=== PATIENT | female | born 1945 | race Caucasian/White ===

== ENCOUNTER → 2021-01-27 11:32 | Outpatient (BNVA) | payer MEDICARE, MEDICAID, SELFPAY | PROVIDERS: Visit Provider Nurse Practitioner | DX: I10 Essential (primary) hypertension (principal); F41.8 Other specified anxiety disorders; E55.9 Vitamin D deficiency, unspecified; E78.2 Mixed hyperlipidemia; G45.9 Transient cerebral ischemic attack, unspecified; K21.9 Gastro-esophageal reflux disease without esophagitis; Z85.3 Personal history of malignant neoplasm of breast; M19.90 Unspecified osteoarthritis, unspecified site; N39.0 Urinary tract infection, site not specified | CPT/HCPCS: 80053; 80061; 81003; 82306; 82607; 84443; 85025; 87077; 87086; 87184 ==

== ENCOUNTER → 2021-02-22 11:16 | Outpatient (BNVA) | payer MEDICARE, MEDICAID, SELFPAY | PROVIDERS: Visit Provider Nurse Practitioner | DX: R82.90 Unspecified abnormal findings in urine (principal) | CPT/HCPCS: 81000 ==

== ENCOUNTER 2021-03-09 09:58 | Outpatient (CLI) | payer MEDICARE, MEDICAID, SELFPAY ==
--- NOTE | 2021-03-09 17:31 | ONC CON_ITS ---
Dr. Bobo New Patient Note Patient: Beryl Cui Unit #: [id number]: 1945 Dicatated By: Evelyne Bobo M.D.Date of Visit: March 09, 2021 Onc MED New Patient/Consult Referring Physician: Rex Santacruz History of Present Illness: Ms. Beryl Dodge, is a 75-year-old female with a history of pT1b, pN0(sn) M0 (multifocal 2 separate foci measuring 9.3 mm and 9 mm )in upper outer quadrant of left breast, underwent lumpectomy and sentinel lymph node biopsy on May 28, 2020, ER [place] positive HER-2/don negative, Oncotype DX score was 17, patient was offered post lumpectomy radiation therapy to the left breast which was completed in late July 2020, patient was also started on letrozole 2.5 mg p.o. daily for 5 years in July 2020., Patient is tolerating hormonal therapy well Patient also has history of follicular mixed large/small cell non-Hodgkin lymphoma diagnosed in 1997 initially she was monitored then treated with R-CVP regimen x5 cycles in 2002 and then due to disease progression, as per patient she received R-CHOP x5 cycles in 2003 followed by maintenance Rituxan, now in remission which was confirmed with follow-up scans in previous oncology clinic, Patient has recently moved to [place], close to her daughter and is here to establish her oncology care Patient denies any history of smoking or alcohol use. Tolerating letrozole and vitamin D/calcium, well, no fever or chills, no nausea or vomiting, no diarrhea or constipation, no new bony pain, no jaundice, no heart flashes, Past Medical History: Ms. Dar Hong's medical history consists of anxiety, gastroesophageal reflux disease, hypertension, osteoarthritis, and osteoporosis. Past Surgical History: Ms. Dar Hong's surgical/procedural history consists of tonsillectomy, left breat lumpectomy in 2019, appendectomy in 2000, cholecystectomy in 1998, right breast lumpectomy in 1982, and hysterectomy/bilateral salpingectomy-oophorectomy in 1979. Medications: Atorvastatin Calcium 1 Tablet (of 20 mg) Oral daily, Clopidogrel Bisulfate 1 Tablet (of 75 mg) Oral daily, Euthyrox 1 Tablet (of 25 mcg) Oral daily, Famotidine 1 Tablet (of 20 mg) Tablet, chewable Oral daily, Letrozole 1 Tablet (of 2.5 mg) Oral every am, Lexapro 1 Tablet Oral daily, Lisinopril 1 Tablet (of 20 mg) Oral daily, traMADol HCl 1 Tablet (of 50 mg) Oral every am Allergies: Morphine Sulfate Social History: Ms. Dar Hong is single. Ms. Dar Hong has never smoked. She has no history of drinking. Family History: Ms. Dar Hong's mother at age 79: stroke. Ms. Dar Hong's father at age 62: coronary artery disease. Review Of Symptoms: Review of Systems is not available for this patient. Vital Signs: Performed on March 09, 2021 10:55: 3, 28.90, 1.64 sq.m, 60 in, 99 %, 86 /min, 17 /min, 208/91 mm(hg) (HIGH), 97.3 F (LOW), and 148.0 lbs (HIGH). Performance Status: 0 - Fully active, able to carry on all predisease activities without restrictions. (ECOG) Physical Examination: ENMT - No mouth sores, no thrush, no jaundice, no cervical or axillary lymphadenopathy, Respiratory - Lungs are clear to auscultation, Cardiovascular - Regular rate and rhythm of heart, Abdomen - Soft, bowel sounds present, Extremities - No visible edema or rash. Lab/Imaging: Most recent lab results are not available for this patient. 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 low Oncotype DX score, ER/WA positive, HER-2/don negative, for which she underwent lumpectomy with sentinel lymph node biopsy followed by postlumpectomy radiation therapy completed in July 2020, now on adjuvant hormonal therapy with letrozole 2.5 mg daily for 5 years since late July 2020., Tolerating well, also taking vitamin D and calcium supplement. She also has history of follicular mixed large cell/small cell non-Hodgkin lymphoma for which she received systemic chemotherapy in the past followed by maintenance therapy with Rituxan, as per patient her follow-up scan shows complete remission., Patient denies any B symptoms or peripheral lymphadenopathy., We will continue with her adjuvant hormonal therapy with Femara and give her prescription for that and then she will return to clinic in 4 months with CBC CMP and follow-up mammogram which is due in June 2021. Signed By: Evelyne Bobo M.D. <<Signature on File>>
== END 2021-03-09 09:59 | disposition home or self-care (01) ==
LOC: ONCMED 10:05
PROVIDERS: PCP Nurse Practitioner; Visit Provider Internal Medicine Hematology & Oncology
DX: I10 Essential (primary) hypertension (principal); E55.9 Vitamin D deficiency, unspecified; K21.9 Gastro-esophageal reflux disease without esophagitis; M19.90 Unspecified osteoarthritis, unspecified site; M81.0 Age-related osteoporosis without current pathological fracture; Z92.3 Personal history of irradiation; Z79.890 Hormone replacement therapy
CPT/HCPCS: 99205

== ENCOUNTER → 2021-04-22 10:55 | Outpatient (BNVA) | payer MEDICARE, MEDICAID, SELFPAY | PROVIDERS: PCP Nurse Practitioner; Visit Provider Nurse Practitioner | DX: E55.9 Vitamin D deficiency, unspecified (principal); E03.8 Other specified hypothyroidism; E78.2 Mixed hyperlipidemia; G45.9 Transient cerebral ischemic attack, unspecified; F41.8 Other specified anxiety disorders; K21.9 Gastro-esophageal reflux disease without esophagitis; I10 Essential (primary) hypertension; M19.90 Unspecified osteoarthritis, unspecified site | CPT/HCPCS: 82306; 84443 ==

== ENCOUNTER 2021-07-07 09:22 | Outpatient (CLI) | payer MEDICARE, MEDICAID, SELFPAY ==
--- NOTE | 2021-07-07 09:30 | MM_ITS ---
WS: [id number] BILATERAL DIGITAL DIAGNOSTIC MAMMOGRAM MAMMOGRAPHY WITH CAD CLINICAL INFORMATION: MALIG NEOPLASM OVERLAPPING SITES LT BREAST COMPARISON: May 28, 2020 TECHNIQUE: Bilateral CC, MLO, and ML views. FINDINGS: Scattered fibroglandular densities bilaterally. Prior postoperative changes left lumpectomy with surg ical clips and parenchymal fibrosis. Punctate and vascular calcifications. Unremarkable right breast. No suspicious focal mass, asymmetry, calcifications, or architectural distortion. No evidence of mary gnancy. MM/[place] [id number] IMPRESSION: BI-RADS: 2-Benign FOLLOW UP: 1 Year Follow-up Recommend return to annual diagnostic mammography.
== END 2021-07-07 09:23 | disposition home or self-care (01) ==
LOC: RADSHAW 09:28
PROVIDERS: PCP Nurse Practitioner; Visit Provider Internal Medicine Hematology & Oncology
DX: C50.812 Malignant neoplasm of overlapping sites of left female breast (principal)
CPT/HCPCS: 77066

== ENCOUNTER → 2021-07-20 10:32 | Outpatient (BNVA) | payer MEDICARE, MEDICAID, SELFPAY | PROVIDERS: PCP Nurse Practitioner; Visit Provider Nurse Practitioner | DX: E78.2 Mixed hyperlipidemia (principal); E03.8 Other specified hypothyroidism; I10 Essential (primary) hypertension; E55.9 Vitamin D deficiency, unspecified; G45.9 Transient cerebral ischemic attack, unspecified; F41.8 Other specified anxiety disorders; K21.9 Gastro-esophageal reflux disease without esophagitis; Z85.3 Personal history of malignant neoplasm of breast; M19.90 Unspecified osteoarthritis, unspecified site | CPT/HCPCS: 80053; 80061; 84443; 85025 ==

== ENCOUNTER 2021-07-21 10:54 | Outpatient (CLI) | payer MEDICARE, MEDICAID, SELFPAY ==
--- NOTE | 2021-07-21 11:33 | ONC FU_ITS ---
Dr. Bobo follow up note Patient: Beryl Cui Unit #: [id number]: 1945 Dicatated By: Evelyne Bobo M.D.Date of Visit:Jul 21, 2021 Onc Med Follow-up/Prog Note History of Present Illness: Ms. Beryl Dodge, is a 75-year-old female with a history of pT1b, pN0(sn) M0 (multifocal 2 separate foci measuring 9.3 mm and 9 mm )in upper outer quadrant of left breast, underwent lumpectomy and sentinel lymph node biopsy on May 28, 2020, ER [place] positive HER-2/don negative, Oncotype DX score was 17, patient was offered post lumpectomy radiation therapy to the left breast which was completed in late July 2020, patient was also started on letrozole 2.5 mg p.o. daily for 5 years in July 2020., Patient is tolerating hormonal therapy well Patient also has history of follicular mixed large/small cell non-Hodgkin lymphoma diagnosed in 1997 initially she was monitored then treated with R-CVP regimen x5 cycles in 2002 and then due to disease progression, as per patient she received R-CHOP x5 cycles in 2003 followed by maintenance Rituxan, now in remission which was confirmed with follow-up scans in previous oncology clinic, Patient has recently moved to [place], close to her daughter and is here to establish her oncology care Patient denies any history of smoking or alcohol use. Tolerating letrozole and vitamin D/calcium, Follow-up mammogram done on July 07, 2021 shows benign, BI-RADS 2 Came for follow-up, denies any specific complaints except chronic arthritis pain in her knee and shoulder but under control as per patient her PMD has started her on Fosamax for osteoporosis while she is taking vitamin D and calcium supplement and she is also tolerating Femara well, denies any hot flashes. Denies any night sweats denies any recurrent fever denies any weight loss denies any peripheral lymphadenopathy or abdominal fullness Medications: Atorvastatin Calcium 1 Tablet (of 20 mg) Oral daily, Clopidogrel Bisulfate 1 Tablet (of 75 mg) Oral daily, Euthyrox 1 Tablet (of 25 mcg) Oral daily, Famotidine 1 Tablet (of 20 mg) Tablet, chewable Oral daily, Letrozole 1 Tablet (of 2.5 mg) Oral every am, Lexapro 1 Tablet Oral daily, Lisinopril 1 Tablet (of 20 mg) Oral daily, traMADol HCl 1 Tablet (of 50 mg) Oral every am Allergies: Morphine Sulfate Review of Systems: Review of Systems is not available for this patient. Vital Signs: Vitals are not available for this patient. Performance Status: 0 - Fully active, able to carry on all predisease activities without restrictions. (ECOG) Physical Examination: Respiratory - Lungs are clear to auscultation, Cardiovascular - Regular rate and rhythm of heart, Gastrointestinal - Soft, bowel sounds present, Extremities - No visible edema. Lab/Imaging: Most recent lab results are not available for this patient. 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, status post chemotherapy with R-CVP regimen x5 in 2002 and status post chemotherapy with R-CHOP x5 in 2003 followed by maintenance therapy with Rituxan, follow-up scans confirmed complete remission Hypertension Osteoporosis, her DEXA scan done on August 04, 2020 on vitamin D and calcium Plan: Discussed with patient regarding her labs done on July 20, 2021 which shows white blood count 7.7 hemoglobin 12.3 hematocrit 37.1 platelets 311,000 CMP within normal limits and her follow-up mammogram finding which was benign Clinically, patient doing well with no signs symptom suggestive of recurrence of disease, tolerating Femara/vitamin D/calcium and Fosamax for osteoporosis which she is tolerating well, her follow-up mammogram was benign As far as history of lymphoma is concerned, patient has no B symptoms or peripheral lymphadenopathy or organomegaly, will continue to monitor she will return to clinic in 6 months with CBC CMP while continue daily Femara/vitamin D/calcium and Fosamax Signed By: Evelyne Bobo M.D. <<Signature on File>>
== END 2021-07-21 10:55 | disposition home or self-care (01) ==
LOC: ONCMED 10:57
PROVIDERS: PCP Nurse Practitioner; Visit Provider Internal Medicine Hematology & Oncology
DX: C50.412 Malignant neoplasm of upper-outer quadrant of left female breast (principal); Z17.0 Estrogen receptor positive status [ER+]; I10 Essential (primary) hypertension; Z85.72 Personal history of non-Hodgkin lymphomas; Z79.811 Long term (current) use of aromatase inhibitors; Z79.899 Other long term (current) drug therapy; Z90.12 Acquired absence of left breast and nipple
CPT/HCPCS: 99214

== ENCOUNTER → 2021-12-28 11:00 | Outpatient (BNVA) | payer MEDICARE, MEDICAID, SELFPAY | PROVIDERS: PCP Nurse Practitioner; Visit Provider Nurse Practitioner | DX: M79.10 Myalgia, unspecified site (principal) | CPT/HCPCS: 73080 ==

== ENCOUNTER → 2022-01-14 09:57 | Outpatient (BNVA) | payer MEDICARE, MEDICAID, SELFPAY | PROVIDERS: PCP Nurse Practitioner; Visit Provider Internal Medicine Hematology & Oncology | DX: Z85.3 Personal history of malignant neoplasm of breast (principal); I10 Essential (primary) hypertension | CPT/HCPCS: 80053; 80061; 85025 ==

== ENCOUNTER 2022-01-19 12:23 | Outpatient (CLI) | payer MEDICARE, MEDICAID, SELFPAY ==
--- NOTE | 2022-01-24 08:04 | ONC FU_ITS ---
Dr. Bobo follow up note Patient: Beryl Cui Unit #: [id number]: 1945 Dicatated By: Evelyne Bobo M.D.Date of Visit:Jan 19, 2022 Onc Med Follow-up/Prog Note History of Present Illness: Ms. Beryl Dodeg, is a 76-year-old female with a history of pT1b, pN0(sn) M0 (multifocal 2 separate foci measuring 9.3 mm and 9 mm )in upper outer quadrant of left breast, underwent lumpectomy and sentinel lymph node biopsy on May 28, 2020, ER [place] positive HER-2/don negative, Oncotype DX score was 17, patient was offered post lumpectomy radiation therapy to the left breast which was completed in late July 2020, patient was also started on letrozole 2.5 mg p.o. daily for 5 years in July 2020., Patient is tolerating hormonal therapy well Patient also has history of follicular mixed large/small cell non-Hodgkin lymphoma diagnosed in 1997 initially she was monitored then treated with R-CVP regimen x5 cycles in 2002 and then due to disease progression, as per patient she received R-CHOP x5 cycles in 2003 followed by maintenance Rituxan, now in remission which was confirmed with follow-up scans in previous oncology clinic, Patient has recently moved to [place], close to her daughter and is here to establish her oncology care Patient denies any history of smoking or alcohol use. Tolerating letrozole and vitamin D/calcium, Follow-up mammogram done on July 07, 2021 shows benign, BI-RADS 2 Came for follow-up, denies any specific complaints, except noted some skin thickening along with scar in her right lateral breast, as per patient in 1982 she underwent cyst removal from her right breast and now scar is showing some tissue thickening similar to the scar in her epigastric area which was due to gallbladder surgery done in 2003. Denies any bleeding from the scar tissues, denies any trauma. Denies any right breast nipple discharge. No fever chills, no nausea or vomiting, no diarrhea or constipation, no hot flashes, no jaundice Medications: amLODIPine Besylate 1 Tablet (of 2.5 mg) Oral at bedtime, Atorvastatin Calcium 1 Tablet (of 20 mg) Oral daily, Clopidogrel Bisulfate 1 Tablet (of 75 mg) Oral daily, Euthyrox 1 Tablet (of 25 mcg) Oral daily, Famotidine 1 Tablet (of 20 mg) Tablet, chewable Oral daily, Letrozole 1 Tablet (of 2.5 mg) Oral every am, Lexapro 1 Tablet Oral daily, Lisinopril 1 Tablet (of 20 mg) Oral daily, traMADol HCl 1 Tablet (of 50 mg) Oral every am Allergies: Morphine Sulfate Review of Systems: Review of Systems is not available for this patient. Vital Signs: Performed on Jan 19, 2022 15:49 Height - 60.00 in Weight - 158.6 lbs (HIGH) BSA - 1.69 sq.m BMI - 30.97 (HIGH) Temperature - 98.6 F Pulse - 78 /min Respiration - 16 /min BP - 151/86 mm(hg) (HIGH) O2 Sat - 99 % Pain - 4 Fatigue - 5 Performance Status: 0 - Fully active, able to carry on all predisease activities without restrictions. (ECOG) Physical Examination: Respiratory - Lungs are clear to auscultation, Cardiovascular - Regular rate and rhythm of heart, Gastrointestinal - Soft, bowel sounds present, Extremities - Trace edema bilaterally. Lab/Imaging: Test performed on Jan 14, 2022 13:27 Cholesterol, Total 319 mg/dL Glucose 100 mg/dL BUN 13 mg/dL HDL Cholesterol 56 mg/dL Creatinine 1.0 mg/dL LDL Cholesterol 216 mg/dL Cr Clearance (Est) 52.16 mL/min VLDL Cholesterol 47 mg/dL Triglycerides 236 mg/dL Sodium 139 mmol/L Potassium 3.1 mmol/L Chloride 99 mmol/L CO2 27 mmol/L Calcium 9.7 mg/dL Protein, Total 6.8 g/dL Albumin 4.2 g/dL Globulin 2.6 g/dL Bilirubin, Total 0.3 mg/dL Alkaline Phosphatase 139 International Units/L AST (SGOT) 17 International Units/L ALT (SGPT) 18 International Units/L WBC 8.3 10^9/L RBC 4.02 10^12/L HGB 12.4 g/dL HCT 38.2 % MCV 95.0 fl MCH 30.8 pg MCHC 32.5 g/dL RDW 13.0 % Platelet Count 350 10^9/L MPV 11.1 fL Neutrophils (Gran) 5.96 10^9/L Lymphocytes 1.328 10^9/L Monocytes 0.7138 10^9/L Eosinophils 0.2075 10^9/L Basophils 0.0581 10^9/L Impression: Left breast cancer status post lumpectomy done on May 28, 2020, final pathology report confirmed pT1b( multifocal, 2 separate foci measuring 9.3 mm and 9 mm, moderately differentiated ductal carcinoma,) pN0(Sn), M0, ER/AK positive HER-2/don negative, Oncotype DX score 17 Status post postlumpectomy radiation therapy to the left breast completed in July 2020 Started on Femara 2.5 mg daily for 5 years in late July 2020 History of cyst removal from right lateral breast in 1982 in [facility] History of 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, status post chemotherapy with R-CVP regimen x5 in 2002 and status post chemotherapy with R-CHOP x5 in 2003 followed by maintenance therapy with Rituxan, follow-up scans confirmed complete remission Hypertension Osteoporosis, her DEXA scan done on August 04, 2020 on vitamin D and calcium Plan: 8Discussed with patient regarding her labs white blood count 0.3 hemoglobin 12.4 hematocrit 38.2 platelets 350,000 CMP within normal limit except potassium 3.1 and her cholesterol level was 319 LDL 216 Clinically, patient doing well with no new signs symptom suggestive of disease progression or recurrence, tolerating daily Femara along with vitamin D and calcium well, had mammogram done in June 2021 showed BI-RADS 2, benign and next mammogram is due in June 2022. Her lab work-up is within normal range except mild hypokalemia, patient said she take off and on Lasix for lower extremity edema prescribed by PMD. Patient has potassium supplement at home, she was advised to take 1 tablet daily for 3 days then as needed and suggested to follow-up with PMD regarding her potassium supplement while she is on diuretics. As far as right lateral breast and epigastric area skin abnormality around scar tissue is concerned clinically it appears she may have keloid, we will refer her to dermatology for evaluation. Patient return to clinic in 6 months with CBC CMP and follow-up mammogram in the meantime she will continue with daily Femara/vitamin D and calcium supplements Signed By: Evelyne Bobo M.D. <<Signature on File>>
== END 2022-01-19 12:24 | disposition home or self-care (01) ==
PROVIDERS: PCP Nurse Practitioner; Visit Provider Internal Medicine Hematology & Oncology
DX: C50.812 Malignant neoplasm of overlapping sites of left female breast (principal); Z17.0 Estrogen receptor positive status [ER+]; I10 Essential (primary) hypertension; M81.0 Age-related osteoporosis without current pathological fracture; E55.9 Vitamin D deficiency, unspecified; E87.6 Hypokalemia; R60.0 Localized edema; Z79.818 Long term (current) use of other agents affecting estrogen receptors and estrogen levels; Z79.899 Other long term (current) drug therapy; Z85.72 Personal history of non-Hodgkin lymphomas; Z92.21 Personal history of antineoplastic chemotherapy; Z92.3 Personal history of irradiation
CPT/HCPCS: 99214

== ENCOUNTER → 2022-02-28 15:11 | Outpatient (BNVA) | payer MEDICARE, MEDICAID, SELFPAY | PROVIDERS: PCP Nurse Practitioner; Visit Provider Nurse Practitioner | DX: Z20.822 Contact with and (suspected) exposure to COVID-19 (principal) | CPT/HCPCS: 87635 ==

== ENCOUNTER → 2022-03-24 11:03 | Outpatient (BNVA) | payer MEDICARE, MEDICAID, SELFPAY | PROVIDERS: PCP Nurse Practitioner; Visit Provider Nurse Practitioner | DX: E55.9 Vitamin D deficiency, unspecified (principal); G45.9 Transient cerebral ischemic attack, unspecified; F41.8 Other specified anxiety disorders; K21.9 Gastro-esophageal reflux disease without esophagitis; I10 Essential (primary) hypertension; E03.8 Other specified hypothyroidism; M19.90 Unspecified osteoarthritis, unspecified site; E78.2 Mixed hyperlipidemia; M79.10 Myalgia, unspecified site | CPT/HCPCS: 80053 ==

== ENCOUNTER → 2022-06-23 11:35 | Outpatient (BNVA) | payer OTHER, MEDICAID, SELFPAY | PROVIDERS: PCP Nurse Practitioner; Visit Provider Nurse Practitioner | DX: E55.9 Vitamin D deficiency, unspecified (principal); G45.9 Transient cerebral ischemic attack, unspecified; F41.8 Other specified anxiety disorders; K21.9 Gastro-esophageal reflux disease without esophagitis; I10 Essential (primary) hypertension; E03.8 Other specified hypothyroidism; M19.90 Unspecified osteoarthritis, unspecified site; E78.2 Mixed hyperlipidemia; M79.10 Myalgia, unspecified site; Z12.39 Encounter for other screening for malignant neoplasm of breast; M79.642 Pain in left hand | CPT/HCPCS: 73110; 73130 ==

== ENCOUNTER → 2022-07-04 14:46 | Outpatient (BNVA) | payer OTHER, MEDICAID, SELFPAY | PROVIDERS: PCP Nurse Practitioner; Visit Provider Nurse Practitioner | DX: I10 Essential (primary) hypertension (principal) | CPT/HCPCS: 81000 ==

== ENCOUNTER → 2022-07-18 09:55 | Outpatient (BNVA) | payer OTHER, MEDICAID, SELFPAY | PROVIDERS: PCP Nurse Practitioner; Visit Provider Internal Medicine Hematology & Oncology | DX: Z85.3 Personal history of malignant neoplasm of breast (principal); I10 Essential (primary) hypertension | CPT/HCPCS: 80053; 85025 ==

== ENCOUNTER 2022-07-20 11:12 | Outpatient (CLI) | payer MEDICARE, MEDICAID, SELFPAY ==
--- NOTE | 2022-07-20 11:17 | MM_ITS ---
WS: [id number] VIEWS: MLO, CC, and ML views both breasts. 3D digital tomosynthesis is also included in this exam. Comparison made with prior exam of 07/07/2021. Findings: Surgical clips and postoperative architectural distortion seen in the upper outer quadrant of the lef t breast. This is stable since previous study. No new suspicious finding in the right breast. The parag asts are fatty. MM/[place] [id number] Impression: BI-RADS: 2-Benign FOLLOW-UP: 1 Year Follow-up This mammogram was also analyzed by the Computer Aided Detection System R2 Imag e Enrollment Processor.
== END 2022-07-20 11:13 | disposition home or self-care (01) ==
LOC: RAD 11:12
PROVIDERS: PCP Nurse Practitioner; Visit Provider Internal Medicine Hematology & Oncology
DX: Z85.3 Personal history of malignant neoplasm of breast (principal)
CPT/HCPCS: 77062

== ENCOUNTER 2022-07-22 08:22 | Oncology outpatient (recurring) (ONCR) | payer MEDICARE, MEDICAID, SELFPAY | END 2022-07-22 23:59 | disposition home or self-care (01) | PROVIDERS: PCP Nurse Practitioner; Visit Provider Internal Medicine Hematology & Oncology | DX: C50.812 Malignant neoplasm of overlapping sites of left female breast (principal); Z17.0 Estrogen receptor positive status [ER+]; Z79.818 Long term (current) use of other agents affecting estrogen receptors and estrogen levels; Z92.3 Personal history of irradiation; Z85.72 Personal history of non-Hodgkin lymphomas; Z92.21 Personal history of antineoplastic chemotherapy; Z92.25 Personal history of immunosuppression therapy; E87.6 Hypokalemia; Z79.899 Other long term (current) drug therapy | CPT/HCPCS: 99214 ==

== ENCOUNTER → 2022-08-01 13:57 | Outpatient (BNVA) | payer MEDICARE, MEDICAID, SELFPAY | PROVIDERS: PCP Nurse Practitioner; Visit Provider Nurse Practitioner | DX: E78.2 Mixed hyperlipidemia (principal); I10 Essential (primary) hypertension; Z23 Encounter for immunization | CPT/HCPCS: 80048 ==

== ENCOUNTER → 2022-08-25 09:02 | Outpatient (BNVA) | payer MEDICARE, MEDICAID, SELFPAY | PROVIDERS: PCP Nurse Practitioner; Visit Provider Nurse Practitioner | DX: I10 Essential (primary) hypertension (principal) | CPT/HCPCS: 80048 ==

== ENCOUNTER 2022-11-09 16:57 | Emergency (ER) | payer MEDICARE, MEDICAID, SELFPAY ==
[2022-11-09 17:09] VITALS: BP 173/102; PULSE 62; RESP 17; TEMP 36.8; O2SAT 97; BMI 31.2
--- NOTE | 2022-11-09 17:26 | CTR_ITS ---
PROCEDURE INFORMATION: Exam: CT Cervical Spine Without Contrast Exam date and time: 11/09/2022 5:42 PM Age: 77 years old Clinical indication: Injury or trauma; Fall; Blunt trauma; Additional info: Midline pain after fall TECHNIQUE: Imaging protocol: Computed tomography of the cervical spine without contrast. Radiation optimization: All CT scans at this facility use at least one of these dose optimization techniques: automated exposure control; mA and/or kV adjustment per patient size (includes targeted exams where dose is matched to clinical indication); or iterative reconstruction. COMPARISON: CR (CHEST, ) 11/09/2022 5:32 PM RADIATION DOSE METRICS: Total DLP (mGy-cm): 216.5 FINDINGS: Bones/joints: Mild spondylotic change along with mild to moderate degenerative disc disease C5-6 level. No fracture or acute osseous abnormality. Alignment appears unremarkable. No significant cervical spinal stenosis. Lungs: Mild apical scarring. Soft tissues: Unremarkable. Mild carotid vascular calcification. CT/CT cervical spin wo con* [id number] IMPRESSION: Mild spondylotic change with [id number] degenerative disc disease C5-6. No fracture or acute findings.
--- NOTE | 2022-11-09 17:26 | XRR_ITS ---
PROCEDURE INFORMATION: Exam: XR Right Shoulder Exam date and time: 11/09/2022 5:32 PM Age: 77 years old Clinical indication: Pain and injury or trauma; Fall; Blunt trauma (contusions or hematomas); Shoulder; Right TECHNIQUE: Imaging protocol: Radiologic exam of the Right shoulder. Views: 2 or more views. COMPARISON: No relevant prior studies available. FINDINGS: Bones/joints: Mild degenerative change. No fracture or dislocation. Soft tissues: N unremarkable al. XR/XR shoulder RT min 2V* [id number] IMPRESSION: No acute findings.
--- NOTE | 2022-11-09 17:26 | CTR_ITS ---
PROCEDURE INFORMATION: Exam: CT Head Without Contrast Exam date and time: 11/09/2022 5:42 PM Age: 77 years old Clinical indication: Injury or trauma; Fall; Blunt trauma (contusions or hematomas); Additional info: Fall on doac TECHNIQUE: Imaging protocol: Computed tomography of the head without contrast. Radiation optimization: All CT scans at this facility use at least one of these dose optimization techniques: automated exposure control; mA and/or kV adjustment per patient size (includes targeted exams where dose is matched to clinical indication); or iterative reconstruction. COMPARISON: No relevant prior studies available. 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 Atrophic or involutional change for age. No hemorrhage or mass effect. Cerebral ventricles: No ventriculomegaly. Paranasal sinuses: Chronic appearing mucosal sinus disease with component of chronic calcification within the left sphenoid sinus. Mastoid air cells: Visualized mastoid air cells are well aerated. Bones/joints: Unremarkable. No acute fracture. Soft tissues: Soft tissue scalp swelling or hematoma in the right frontal scalp. CT/CT head wo con* [id number] IMPRESSION: 1. Atrophic or involutional change for age. 2. 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 3. Soft tissue scalp swelling or hematoma in the right frontal scalp. 4. Chronic appearing mucosal sinus disease with component of chronic appearing calcification within the left sphenoid sinus.
--- NOTE | 2022-11-09 17:26 | XRR_ITS ---
PROCEDURE INFORMATION: Exam: XR Left Knee Exam date and time: 11/09/2022 5:32 PM Age: 77 years old Clinical indication: Pain and injury or trauma; Fall; Blunt trauma; Knee; Left TECHNIQUE: Imaging protocol: Radiologic exam of the Left knee. Views: 3 views. COMPARISON: No relevant prior studies available. FINDINGS: Bones/joints: Mild degenerative change. No fracture or acute osseous abnormality. Soft tissues: Unremarkable. No significant suprapatellar fullness or effusion.' XR/XR knee LT 3V* [id number] IMPRESSION: No acute findings.
--- NOTE | 2022-11-09 17:27 | ED_ITS ---
HPI - Fall General: Chief Complaint: Fall Stated Complaint: FALL HIT HEAD Time Seen by Provider: 11/09/22 17:08 Source: patient and family Mode of arrival: EMS Limitations: no limitations History of Present Illness: This patient presents to the emergency department via EMS. She was walking in her home and tripped over a piece of exercise equipment and fell forward striking her head and her right shoulder and her left knee. She states there was no syncope prior to the fall. She states she did not suffer a loss of consciousness and has had no headache vomiting etc. after the incident. States she has pain in her right shoulder and her left knee. She also has swelling in her right forehead. She currently takes Plavix apparently for TIA prevention. No history of arrhythmias etc. No weakness numbness etc. no other changes in her usual state of health at this time. complaint: fall Fall from: standing Fall witnessed: no Location of injury: head Location of injury - extremities: Left: knee and Right: shoulder Associated symptoms-after fall: Reports neck pain; Denies chest pain, headache(s) or vertigo Review of Systems Const: Denies: fever(s) or chills Eyes: Denies: change in vision Card: Denies: chest pain, palpitations, syncope or pre-syncope GI: Denies: nausea or vomiting Musc: Reports: neck pain, back pain and extremity pain Skin/Breast: Denies: rash Neuro: Denies: headache(s), numbness in extremities, weakness in extremities, dizziness, vertigo or seizure-like activity Robert/Lymph: Reports: easy bruising PFS ED PFSH: Medical History Age related osteoporosis Breast cancer Environmental and seasonal allergies Essential (primary) hypertension Gastric reflux History of left breast cancer Mixed hyperlipidemia Non-Hodgkin lymphoma in remission 1997 with chemo and radiation Osteoarthritis Situational anxiety TIA (transient ischemic attack) Surgical History History of appendectomy History of cholecystectomy History of hysterectomy with BSO History of lumpectomy of left breast 2019 [place] History of right breast biopsy Fibrocystic breast 1984 History of tonsillectomy Family History Other Cancer Dementia Hypertension Stroke Denies family history of Diabetes Clotting disorder Anesthesia complication Bleeding disorder Social History Smoking and tobacco status: never smoked Second hand smoke exposure: No Smoking risk assessment/counseling performed?: No Alcohol intake: never Desire information about alcohol rehabilitation?: No Counseling given: No Desire information about substance/drug rehabilitation?: No Counseling given: No Adopted: No Caregiver/support person: No Lives independently: Yes Household members: none Housing: Apartment Marital status: / Number of children: 2 service: No Current occupational status: retired Pets and animals: Yes Pets & animals: cat(s) History of recent travel: Yes Current gender identity: Female Physical Exam Narrative: EXAM NARRATIVE: The patient's makes good eye contact. She is alert. She answers questions appropriately. Const: COMMON NORMALS: no acute distress, average body habitus and patient oriented x3 GENERAL APPEARANCE: cooperative and comfortable HENMT: COMMON NORMALS: Normal nasal mucous membranes and turbinates present, moist oral mucous membranes and oropharynx normal HEAD & SCALP: contusion (Right forehead) HEAD IMAGES: 1. Contusion no palpable skull fracture or step-off FACE & SINUS: normal facial exam and face symmetric NOSE: Normal nasal mucous membranes and turbinates present Eye: COMMON NORMALS: Equal, round and reactive pupils present, EOMs intact bilaterally and conjunctivae normal CONJUNCTIVA: Yes conjunctivae normal PUPIL: Yes Equal, round and reactive pupils present Neck/C-Spine: CERVICAL SPINE: Yes cervical ROM normal, No Cervical spine tenderness, No step off deformity, No Paracervical muscle tenderness, No Paracervical spasm and No Trapezius muscle tenderness Chest: COMMONS NORMALS: normal inspection of the chest and normal palpation of entire chest wall Resp: COMMON NORMALS: normal respiratory effort and clear to auscultation bilaterally EFFORT & INSPECTION: Yes able to speak in complete sentences AUSCULTATION: clear to auscultation bilaterally Cardio: COMMON NORMALS: regular rate, regular rhythm, No murmurs present (Cardio) and Peripheral pulses 2+ throughout RATE: regular rate RHYTHM: regular rhythm PERIPHERAL PULSES: Peripheral pulses 2+ throughout GI: COMMON NORMALS: Normal to inspection, nondistended, normoactive bowel sounds present : COMMON NORMALS: Yes no CVA tenderness BLADDER/KIDNEY EXAM: Yes no CVA tenderness Back/Pelvis: COMMON NORMALS: no CVA tenderness, thoracic and lumbar spine normal to inspection, no thoracic nor lumbar tenderness, thoraco-lumbar ROM normal and straight leg raise negative bilaterally PELVIS: Yes no pain with anterior-posterior compression and Yes no pain with lateral compression SACROILIAC JOINTS: Yes SI joints normal Extremity: COMMON NORMALS: capillary refill normal, no calf tenderness and no pedal edema OTHER: Extremity examination is remarkable for tenderness in the anterior portion of the right shoulder. No ecchymosis. She has some discomfort with external rotation and extension. No deformity of the upper extremity. She has good range of motion at the elbow and wrist joint. No tenderness in the clavicle no deformity. Left knee is remarkable for a approximately 2 cm abrasion over the anterior portion of the knee. Patellar tendon function is intact. She is able to fully extend lower leg without difficulty. He has no palpable effusion. Patella is nonballotable. There is no laxity or varus or valgus stress. She has some mild tenderness in the anterior portion of the knee. The distal left lower extremity is unremarkable for any deformity. She has no bony tenderness in the the distal left leg. EXTREMITY IMAGE (FRONT): 1. tender 2. abrasion, tender Neuro: LEONEL COMA SCALE: document GCS findings [place] coma scale eye opening: Spontaneous [place] coma scale verbal response: Orientated Leonel coma scale motor response: Obey commands [place] coma scale total score: 15 COMMON NORMALS: patient oriented x3, moves all extremities and no focal motor deficits Psych: COMMON NORMALS: mental status grossly normal Skin: COMMON NORMALS: no rashes or lesions noted and turgor normal GENERAL SKIN EXAM: no rashes or lesions noted and turgor normal TRAUMA: abrasion (left knee) Course Reevaluation(s): Reevaluation #1: Patient was reevaluated. She remains alert without any new or focal findings on repeat examination. I reviewed current findings, expected course and recommendations. Both patient and family voiced understanding of our discussion. Stable at this time for discharge with family for close monitoring and return precautions. Time: 19:01 Vital Signs: Vital signs: Vital Signs Temperature 98.3 F 11/09/22 17:09 Pulse Rate 62 11/09/22 17:09 Respiratory Rate 17 11/09/22 17:09 Blood Pressure 173/102 11/09/22 17:09 Pulse Oximetry 97 11/09/22 17:09 Oxygen Delivery Me thod 11/09/22 17:09 MDM - Fall Medical Decision Making This patient was transported to the emergency department after sustaining a ground-level trip and fall in her home. She does suffer contusion to the fron luis bone without any evidence of loss of consciousness. She also had contusion to the right anterior shoulder as well as the left knee. Imaging was obtained of the head, cervical spine, right shoulder, left knee. They were all reassuring and that there was no evidence of intracranial hemorrhage, skull fracture, cervical spine injury, shoulder or knee injury. Her clinical exam is also reassuring and that she had no focal findings and no evidence of joint disruption, etc. She has no evidence of acute intracranial hemorrhage due to being on a DOAC. We discussed risks and benefits of continued observation versus home observation. Current literature favors that routine rescanning or admission is not strongly favored at this point given the low risk of delayed bleeding. This information was shared with both the patient and the family. I do feel that mitigation against any risk of delayed bleeding would be further improved by holding her Plavix for the next 48 hours in addition to her low-dose aspirin. This was acknowledged by the family. We discussed return precautions in detail. We also discussed discussed expected course of her contusion to her shoulder and knee. Stable at this time for discharge with family for observation. Lab Data I reviewed the patient's lab results. Radiology Impressions Cervical Spine CT 11/09/22 17:26 IMPRESSION: Mild spondylotic change with [id number] degenerative disc disease C5-6. No fracture or acute findings. Head CT 11/09/22 17:26 IMPRESSION: 1. Atrophic or involutional change for age. 2. 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 3. Soft tissue scalp swelling or hematoma in the right frontal scalp. 4. Chronic appearing mucosal sinus disease with component of chronic appearing calcification within the left sphenoid sinus. Knee X-Ray 11/09/22 17:26 IMPRESSION: No acute findings. Shoulder X-Ray 11/09/22 17:26 IMPRESSION: No acute findings. Discharge Plan Discharge Patient Disposition: Home Clinical Impression: Fall from ground level, Contusion of forehead, Contusion of right shoulder, Abrasion of knee, left Condition: Stable Prescriptions: Held clopidogrel 75 mg tablet 75 mg PO DAILY Qty: 30 2RF Hold Instructions: Resume on 11/12/22. Do not take Plavix morning or Monday morning and may resume Monday morning. No Action omega-3 fatty acids 100 mg tablet,chewable PO multivitamin [Daily Multi-Vitamin] Tablet 1 tab PO DAILY furosemide [Lasix] 20 mg tablet 20 mg PO QAM Qty: 30 2RF Hold Instructions: Doctor's Order famotidine 20 mg tablet 20 mg PO .HS PRN (Reason: acid reflux) Qty: 30 2RF escitalopram oxalate [Lexapro] 10 mg tablet 10 mg PO DAILY Qty: 30 2RF amlodipine [Norvasc] 2.5 mg tablet 2.5 mg PO .at bedtime for BP Qty: 30 2RF cholecalciferol (vitamin D3) 125 mcg (5,000 unit) capsule 125 mcg PO DAILY Qty: 30 2RF levothyroxine 25 mcg tablet 25 mcg PO DAILY Qty: 30 2RF lisinopril 40 mg tablet 40 mg PO DAILY Qty: 30 2RF rosuvastatin [Crestor] 40 mg tablet 40 mg PO DAILY Qty: 30 2RF tramadol 50 mg tablet 50 mg PO BID PRN (Reason: pain) Qty: 60 2RF letrozole 2.5 mg tablet See Rx Instructions .ROUTE .COMPLEX Qty: 90 3RF Dose Instruction: TAKE ONE TABLET BY MOUTH DAILY Rx Instructions: TAKE ONE TABLET BY MOUTH DAILY Discharge Orders: Discharge ED (Routine); Ordered 11/09/22 Ordered By: Billy Koo Referrals: Christel Gay, [facility] [Primary Care Provider] - Discharge Diet: Usual diet Discharge Activity: Increase activity as tolerated Patient Instructions: Opioid Safety, Pain Management Activity Restrictions/Additional Instructions: As we discussed while you are in the emergency department your images of your head and neck shoulder and knee were read unremarkable for any serious injury. We do recommend that you do not take your Plavix until Monday morning. Apply ice pack to your forehead as well as her shoulder and knee to help with any discomfort and pain. Should you have or develop headache, weakness, nausea vomiting or other concerns return to the emergency department immediately. Otherwise you may resume your medications on Monday as we discussed. Coding Level of Care Code ED Health Equipment Servicer for Chloé Fwtyrone Exam Detailed
[2022-11-09] MEDS: acetaminophen 325 mg Tablet 650 MG PO (17:57)
[2022-11-09 19:24] VITALS: BP 148/94; PULSE 74; RESP 16; O2SAT 97
== END 2022-11-09 19:25 | disposition home or self-care (01) ==
PROVIDERS: Emergency Provider Emergency Medicine; PCP Nurse Practitioner
DX: S00.83XA Contusion of other part of head, initial encounter (principal); S40.011A Contusion of right shoulder, initial encounter; S80.212A Abrasion, left knee, initial encounter; Z79.02 Long term (current) use of antithrombotics/antiplatelets; Z85.3 Personal history of malignant neoplasm of breast; I10 Essential (primary) hypertension; E78.2 Mixed hyperlipidemia; Z85.72 Personal history of non-Hodgkin lymphomas; Z86.73 Personal history of transient ischemic attack (TIA), and cerebral infarction without residual deficits; W18.09XA Striking against other object with subsequent fall, initial encounter
CPT/HCPCS: 70450; 72125; 73030; 73562; 99285

== ENCOUNTER → 2022-12-05 08:28 | Outpatient (BNVA) | payer MEDICARE, MEDICAID, SELFPAY | PROVIDERS: PCP Nurse Practitioner; Visit Provider Nurse Practitioner | DX: G45.9 Transient cerebral ischemic attack, unspecified (principal); I10 Essential (primary) hypertension; E03.8 Other specified hypothyroidism; E78.2 Mixed hyperlipidemia; E55.9 Vitamin D deficiency, unspecified | CPT/HCPCS: 80053; 80061; 82306; 84443; 85025 ==

== ENCOUNTER → 2023-01-30 10:05 | Outpatient (BNVA) | payer MEDICARE, MEDICAID, SELFPAY | PROVIDERS: PCP Nurse Practitioner; Referring Provider Internal Medicine Hematology & Oncology; Visit Provider Internal Medicine Hematology & Oncology | DX: E03.8 Other specified hypothyroidism (principal) | CPT/HCPCS: 80053; 85025 ==

== ENCOUNTER 2023-02-03 08:20 | Oncology outpatient (recurring) (ONCR) | payer MEDICARE, MEDICAID, SELFPAY | END 2023-02-19 23:59 | disposition home or self-care (01) | PROVIDERS: PCP Nurse Practitioner; Visit Provider Internal Medicine Hematology & Oncology | DX: C50.812 Malignant neoplasm of overlapping sites of left female breast (principal); Z17.0 Estrogen receptor positive status [ER+]; Z85.72 Personal history of non-Hodgkin lymphomas; Z79.818 Long term (current) use of other agents affecting estrogen receptors and estrogen levels; Z79.899 Other long term (current) drug therapy; Z92.21 Personal history of antineoplastic chemotherapy; Z92.3 Personal history of irradiation | CPT/HCPCS: 99214 ==

== ENCOUNTER → 2023-02-28 10:45 | Outpatient (BNVA) | payer MEDICARE, MEDICAID, SELFPAY | PROVIDERS: PCP Nurse Practitioner; Visit Provider Nurse Practitioner | DX: I10 Essential (primary) hypertension (principal); E55.9 Vitamin D deficiency, unspecified; G45.9 Transient cerebral ischemic attack, unspecified; F41.8 Other specified anxiety disorders; E78.2 Mixed hyperlipidemia; K21.9 Gastro-esophageal reflux disease without esophagitis; M19.90 Unspecified osteoarthritis, unspecified site; E03.8 Other specified hypothyroidism | CPT/HCPCS: 84443 ==

== ENCOUNTER 2023-04-05 12:46 | Outpatient (CLI) | payer MEDICARE, MEDICAID, SELFPAY ==
--- NOTE | 2023-04-05 13:00 | XR_ITS ---
WS: [id number] SCREENING DEXA SCAN [email or web address] CLINICAL INFORMATION: Z78.0 - Asymptomatic menopausal state COMPARISON: None. FINDINGS: The L1-L4 bone mineral density measures 0.899 g/cm2. This corresponds to a T score score of -2.3 and Z score of -0.8. Left femoral neck bone mineral density measures 0.635 g/cm2. This corresponds to a T score of -3.0 an d Z score of -1.2. Right femoral neck bone mineral density measures 0.685 g/cm2. This corresponds to a T score -2.6of an d Z score of -0.8. Mean femoral neck bone mineral density measures 0.660 g/cm2. This corresponds to a T score of -2.8 an d Z score of -1.0. XR/XR DEXA axial skeleton* [id number] IMPRESSION: Osteopenia lumbar spine approaching osteoporosis. Osteoporosis femoral necks. Patient's FRAX calculated 10 year probability for major osteoporotic fracture i s 23.5 % and osteoporotic hip fracture is 9.6%.
== END 2023-04-05 12:47 | disposition home or self-care (01) ==
LOC: RAD 13:00
PROVIDERS: PCP Nurse Practitioner; Visit Provider Nurse Practitioner
DX: Z13.820 Encounter for screening for osteoporosis (principal); Z78.0 Asymptomatic menopausal state; M85.88 Other specified disorders of bone density and structure, other site; M81.0 Age-related osteoporosis without current pathological fracture
CPT/HCPCS: 77080

== ENCOUNTER → 2023-05-22 08:11 | Outpatient (BNVA) | payer MEDICARE, MEDICAID, SELFPAY | PROVIDERS: PCP Nurse Practitioner; Visit Provider Nurse Practitioner | DX: E03.8 Other specified hypothyroidism (principal); E55.9 Vitamin D deficiency, unspecified | CPT/HCPCS: 80053; 80061; 82306; 84443 ==

== ENCOUNTER 2023-08-01 11:53 | Outpatient (CLI) | payer MEDICARE, MEDICAID, SELFPAY ==
--- NOTE | 2023-08-01 12:01 | XRR_ITS ---
PROCEDURE INFORMATION: Exam: XR Chest Exam date and time: 08/01/2023 12:16 PM Age: 77 years old Clinical indication: Shortness of breath; Additional info: Y84.4 TECHNIQUE: Imaging protocol: Radiologic exam of the chest. Views: 2 views. COMPARISON: CT cervical spin wo con* [id number] 11/09/2022 5:42 PM FINDINGS: Lungs: 1 cm nodule right mid lung. Small amount of scarring, atelectasis, and/or pneumonitis right lung apex versus larger pulmonary nodule. Otherwise, clear lungs. Pleural spaces: Unremarkable. No pleural effusion. No pneumothorax. Heart/Mediastinum: Unremarkable. No cardiomegaly. Bones/joints: Mild thoracic kyphosis and multilevel spondylosis. Soft tissues: Surgical clips left breast. XR/XR chest 2V* [id number] IMPRESSION: 1 cm pulmonary nodule right mid lung. Atelectasis and/or pneumonitis right upper lung versus larger pulmonary nodule. A CT of the chest is recommended.
== END 2023-08-01 11:54 | disposition home or self-care (01) ==
PROVIDERS: PCP Nurse Practitioner; Visit Provider Ophthalmology
DX: R06.02 Shortness of breath (principal); R91.1 Solitary pulmonary nodule; R91.8 Other nonspecific abnormal finding of lung field
CPT/HCPCS: 71046

== ENCOUNTER → 2023-08-07 09:51 | Outpatient (BNVA) | payer MEDICARE, MEDICAID, SELFPAY | PROVIDERS: PCP Nurse Practitioner; Visit Provider Internal Medicine Hematology & Oncology | DX: C50.919 Malignant neoplasm of unspecified site of unspecified female breast (principal); E03.8 Other specified hypothyroidism; E55.9 Vitamin D deficiency, unspecified; E78.2 Mixed hyperlipidemia; M81.0 Age-related osteoporosis without current pathological fracture; G45.9 Transient cerebral ischemic attack, unspecified | CPT/HCPCS: 80053; 80061; 82306; 84443; 85025 ==

== ENCOUNTER 2023-08-09 07:23 | Outpatient (CLI) | payer MEDICARE, MEDICAID, SELFPAY ==
--- NOTE | 2023-08-09 07:30 | CTR_ITS ---
PROCEDURE INFORMATION: Exam: CT Chest Without Contrast; Diagnostic Exam date and time: 08/09/2023 7:36 AM Age: 77 years old Clinical indication: Condition or disease; Lung condition and disease; Pulmonary nodule, solitary; Primary cancer: Breast, non hodgkin's lymphoma; Prior surgery; Surgery date: 6+ months; Surgery type: Bilat breast, gb, lymph nodes; Additional info: R91.1 - solitary pulmonary nodule TECHNIQUE: Imaging protocol: Diagnostic computed tomography of the chest without contrast. Radiation optimization: All CT scans at this facility use at least one of these dose optimization techniques: automated exposure control; mA and/or kV adjustment per patient size (includes targeted exams where dose is matched to clinical indication); or iterative reconstruction. REPORTING DATA: Count of CT and Cardiac NM exams in prior 12 months: This patient has received 2 known CTs and 0 known cardiac nuclear medicine studies in the 12 months prior to the current study. COMPARISON: CR XR chest 2V* [id number] 08/01/2023 12:16 PM RADIATION DOSE METRICS: Total DLP (mGy-cm): 306.16 FINDINGS: Lungs: No pulmonary nodule. Several small areas of hazy ground-glass opacity in the right upper lobe and right lower lobe. Pleural spaces: Unremarkable. No pneumothorax. No pleural effusion. Heart: Unremarkable. No cardiomegaly. No pericardial effusion. Lymph nodes: Unremarkable. No enlarged lymph nodes. Vasculature: Unremarkable. No aortic aneurysm. Diaphragm: Small hiatal hernia. Gallbladder and bile ducts: Calcified gallstones. Bones/joints: 8 mm sclerotic lesion in the left side of the T7 vertebral body (series 4, image 25). This likely accounts for the possible nodule seen on the lateral view on the patient's chest radiograph from 08/01/2023. Soft tissues: Unremarkable. CT/CT chest wo con [id number] IMPRESSION: No pulmonary nodule. Small areas of hazy opacity right upper lobe and right lower lobe. 8 mm sclerotic lesion in the left side of the T7 vertebral body. This was likely seen on the lateral view on the patient's chest radiograph and could be followed in approximately 6 months to document stability with plain films.
--- NOTE | 2023-08-09 07:57 | MM_ITS ---
WS: [id number] DIAGNOSTIC BILATERAL DIGITAL BREAST TOMOSYNTHESIS MAMMOGRAPHY WITH CAD HISTORY: Follow Up, history of breast cancer. COMPARISON: 07/20/2022, 07/07/2021 TECHNIQUE: Bilateral craniocaudad, mediolateral oblique, and mediolateral views are submitted with to mosynthjesus alberto and SM. Computer aided detection utilized. Breast composition: The breasts are almost entirely fatty. Lumpectomy site upper outer quadrant LEFT breast. The distortion and scarring are similar to prior studies. No recurrent mass. No suspicious ca lcifications within either breast. IMPRESSION: MM/[place] [id number] BI-RADS: 2-Benign FOLLOW UP: 1 Year Follow-up
== END 2023-08-09 07:24 | disposition home or self-care (01) ==
PROVIDERS: PCP Nurse Practitioner; Visit Provider Nurse Practitioner
DX: Z85.3 Personal history of malignant neoplasm of breast (principal); R91.1 Solitary pulmonary nodule
CPT/HCPCS: 71250; 77062; G0279

== ENCOUNTER 2023-08-31 07:55 | Oncology outpatient (recurring) (ONCR) | payer MEDICARE, MEDICAID, SELFPAY | END 2023-09-21 23:59 | disposition home or self-care (01) | LOC: ONCMED 07:56 | PROVIDERS: PCP Nurse Practitioner; Visit Provider Internal Medicine Medical Oncology | DX: C85.90 Non-Hodgkin lymphoma, unspecified, unspecified site (principal); C50.919 Malignant neoplasm of unspecified site of unspecified female breast; Z79.899 Other long term (current) drug therapy | CPT/HCPCS: 99214 ==

== ENCOUNTER → 2023-11-07 10:43 | Outpatient (BNVA) | payer MEDICARE, MEDICAID, SELFPAY | PROVIDERS: PCP Nurse Practitioner; Visit Provider Nurse Practitioner | DX: M81.0 Age-related osteoporosis without current pathological fracture (principal); I10 Essential (primary) hypertension; E55.9 Vitamin D deficiency, unspecified; G45.9 Transient cerebral ischemic attack, unspecified; F41.8 Other specified anxiety disorders; K21.9 Gastro-esophageal reflux disease without esophagitis; E78.2 Mixed hyperlipidemia; M19.90 Unspecified osteoarthritis, unspecified site; E03.8 Other specified hypothyroidism; M54.9 Dorsalgia, unspecified | CPT/HCPCS: 80061; 82306; 84443 ==

== ENCOUNTER → 2024-02-05 09:55 | Outpatient (BNVA) | payer MEDICARE, MEDICAID, SELFPAY | PROVIDERS: PCP Nurse Practitioner; Visit Provider Nurse Practitioner | DX: M81.0 Age-related osteoporosis without current pathological fracture (principal); I10 Essential (primary) hypertension; G45.9 Transient cerebral ischemic attack, unspecified; E78.2 Mixed hyperlipidemia | CPT/HCPCS: 80053; 80061; 82306; 84443; 85025 ==

== ENCOUNTER → 2024-02-07 09:56 | Outpatient (BNVA) | payer MEDICARE, MEDICAID, SELFPAY | PROVIDERS: PCP Nurse Practitioner; Visit Provider Nurse Practitioner | DX: R91.1 Solitary pulmonary nodule (principal); M47.894 Other spondylosis, thoracic region; M40.294 Other kyphosis, thoracic region; M54.6 Pain in thoracic spine | CPT/HCPCS: 71046; 72070 ==

== ENCOUNTER 2024-02-20 08:49 | Outpatient (CLI) | payer MEDICARE, MEDICAID, SELFPAY ==
--- NOTE | 2024-02-20 09:00 | USCV_ITS ---
Beryl Juárez Age: 78 Gender: F : 1945 Exam Date: 02/20/2024 09:00 Ordering Phys: Christel Gay Technologist: CT Exam Location: [facility] – [place] Indication: sob BP: 170 / 78 HR: 67 Rhythm: Sinus Technical Quality: Adequate MEASUREMENTS (Male / Female) Normal Values 2D ECHO LVOT Diameter 2.1 cm LV Ejection Fraction MOD 2C 53.8 % LV Ejection Fraction 2C AL 56.4 % LA Diameter 4.0 cm RA Systolic Volume 4C AL 30.2 ml RA Systolic Volume 4C MOD 30.9 ml LA Sys Volume AL 57.8 cm cubed LA Sys Volume Index AL 32.0 cm cubed/m squared Aorta at Sinotubular Diameter 2.2 cm IVC Diameter 1.9 cm M-MODE LA Ao Ratio MM 1.7 AV Cusp Separation MM 1.8 cm DOPPLER AV Peak Velocity 136.0 cm/s LVOT Peak Velocity 108.0 cm/s AV Area Cont Eq vti 2.9 cm squared AV Area Cont Eq pk 2.8 cm squared MV Peak Velocity 104.0 cm/s MV Area PHT 3.9 cm squared Mitral E to A Ratio 1.3 TV Peak Velocity 287.5 cm/s TR Peak Velocity 303.0 cm/s TR Peak Gradient 36.7 mmHg TV Peak E Velocity 80.0 cm/s Right Atrial Pressure 3.0 mmHg Pulmonary Artery Systolic Pressu 39.7 mmHg PV Peak Velocity 98.5 cm/s FINDINGS Left Ventricle Left ventricle is normal in size. LV systolic function is normal with EF of 55 to 60%. No regional wall motion abnormalities are seen. Right Ventricle Normal in size and function Right Atrium Normal in size Left Atrium Normal in size Mitral Valve Structurally normal mitral valve. Trace mitral regurgitation. Aortic Valve Structurally normal aortic valve. No significant stenosis or regurgitation. Tricuspid Valve Mild tricuspid regurgitation. RVSP is 35 to 40 mmHg. Mild pulmonary hypertension Pulmonic Valve Not well visualized Pericardium Normal Aorta Normal in size IVC Appears to be normal CONCLUSIONS LV systolic function is normal with EF of 55 to 60% Trace mitral regurgitation Mild tricuspid regurgitation Mild pulmonary pretension No comparison studies are available. Valerio Worley MD (Electronically Signed) Final Date: 25 Feb 2024 12:56 S
== END 2024-02-20 08:50 | disposition home or self-care (01) ==
LOC: RAD 08:50
PROVIDERS: PCP Nurse Practitioner; Visit Provider Nurse Practitioner
DX: I10 Essential (primary) hypertension (principal); R06.02 Shortness of breath; I27.20 Pulmonary hypertension, unspecified; I07.1 Rheumatic tricuspid insufficiency
CPT/HCPCS: 93306

== ENCOUNTER → 2024-02-26 09:48 | Outpatient (BNVA) | payer MEDICARE, MEDICAID, SELFPAY | PROVIDERS: PCP Nurse Practitioner; Visit Provider Internal Medicine Medical Oncology | DX: R73.9 Hyperglycemia, unspecified (principal); C85.90 Non-Hodgkin lymphoma, unspecified, unspecified site; Z85.3 Personal history of malignant neoplasm of breast; I10 Essential (primary) hypertension | CPT/HCPCS: 80053; 83036; 83615; 85025 ==

== ENCOUNTER 2024-02-27 07:58 | Oncology outpatient (recurring) (ONCR) | payer MEDICARE, MEDICAID, SELFPAY | END 2024-03-22 23:59 | disposition home or self-care (01) | LOC: ONCMED 07:58 | PROVIDERS: PCP Nurse Practitioner; Visit Provider Internal Medicine Medical Oncology | DX: C50.411 Malignant neoplasm of upper-outer quadrant of right female breast; Z17.1 Estrogen receptor negative status [ER-]; Z92.3 Personal history of irradiation; Z85.72 Personal history of non-Hodgkin lymphomas; Z79.811 Long term (current) use of aromatase inhibitors; M81.0 Age-related osteoporosis without current pathological fracture; Z79.899 Other long term (current) drug therapy | CPT/HCPCS: 99214 ==

== ENCOUNTER → 2024-04-22 09:14 | Outpatient (BNVA) | payer MEDICARE, MEDICAID, SELFPAY | PROVIDERS: PCP Nurse Practitioner; Visit Provider Nurse Practitioner | DX: E78.2 Mixed hyperlipidemia (principal); I10 Essential (primary) hypertension; G45.9 Transient cerebral ischemic attack, unspecified; E55.9 Vitamin D deficiency, unspecified; Z79.899 Other long term (current) drug therapy | CPT/HCPCS: 80053; 80061; 82306; 84443; 85025 ==

== ENCOUNTER → 2024-07-08 09:27 | Outpatient (BNVA) | payer MEDICARE, MEDICAID, SELFPAY | PROVIDERS: PCP Nurse Practitioner; Visit Provider Nurse Practitioner | DX: E55.9 Vitamin D deficiency, unspecified (principal); E03.8 Other specified hypothyroidism; E78.2 Mixed hyperlipidemia; G45.9 Transient cerebral ischemic attack, unspecified | CPT/HCPCS: 80053; 80061; 82306; 84443; 85025 ==

== ENCOUNTER → 2024-08-26 10:09 | Outpatient (BNVA) | payer MEDICARE, MEDICAID, SELFPAY | PROVIDERS: PCP Nurse Practitioner; Visit Provider Nurse Practitioner | DX: C85.90 Non-Hodgkin lymphoma, unspecified, unspecified site (principal); Z85.3 Personal history of malignant neoplasm of breast; C50.919 Malignant neoplasm of unspecified site of unspecified female breast | CPT/HCPCS: 80053; 83615; 85025 ==

== ENCOUNTER 2024-08-30 08:24 | Oncology outpatient (recurring) (ONCR) | payer MEDICARE, MEDICAID, SELFPAY | END 2024-09-21 23:59 | disposition home or self-care (01) | PROVIDERS: PCP Nurse Practitioner; Visit Provider Internal Medicine Hematology & Oncology | DX: M81.0 Age-related osteoporosis without current pathological fracture; Z08 Encounter for follow-up examination after completed treatment for malignant neoplasm; Z92.3 Personal history of irradiation; Z79.811 Long term (current) use of aromatase inhibitors; Z85.3 Personal history of malignant neoplasm of breast; D64.9 Anemia, unspecified; M89.9 Disorder of bone, unspecified | CPT/HCPCS: 99214 ==

== ENCOUNTER → 2024-09-23 09:03 | Outpatient (BNVA) | payer MEDICARE, MEDICAID, SELFPAY | PROVIDERS: PCP Nurse Practitioner; Visit Provider Nurse Practitioner | DX: I10 Essential (primary) hypertension (principal); R73.9 Hyperglycemia, unspecified | CPT/HCPCS: 80053; 83036 ==

== ENCOUNTER 2024-11-05 10:45 | Outpatient (CLI) | payer MEDICARE, MEDICAID, SELFPAY ==
--- NOTE | 2024-11-05 11:00 | MM_ITS ---
WS: [id number] DIAGNOSTIC BILATERAL DIGITAL BREAST TOMOSYNTHESIS MAMMOGRAPHY WITH CAD HISTORY: surveillance, history of breast cancer. COMPARISON: 08/09/2023, 07/20/2022 and 07/07/2021 TECHNIQUE: Bilateral craniocaudad, mediolateral oblique, and mediolateral views are submitted with to mosynthesis and SM. Computer aided detection utilized. Breast composition: The breasts are almost entirely fatty. Postsurgical lumpectomy site with clips in the upper outer quadrant of the LEFT breast is reidentifie d. No mass identified. Benign calcifications and vascular calcifications in the LEFT breast. Vascular calcifications in the RIGHT breast. Posttreatment skin thickening LEFT breast. MM/MM diag BI tomosynthesis [id number] IMPRESSION: BI-RADS: 2 - Benign. FOLLOW UP: 1 Year Follow-up
== END 2024-11-05 10:46 | disposition home or self-care (01) ==
LOC: RAD 10:46
PROVIDERS: PCP Nurse Practitioner; Visit Provider Nurse Practitioner Family
DX: Z85.3 Personal history of malignant neoplasm of breast (principal); R92.313 Mammographic fatty tissue density, bilateral breasts; Z98.890 Other specified postprocedural states; R92.1 Mammographic calcification found on diagnostic imaging of breast; N64.59 Other signs and symptoms in breast
CPT/HCPCS: 77062; G0279

== ENCOUNTER 2024-11-08 11:33 | Inpatient (IN) | payer MEDICARE, MEDICAID, SELFPAY ==
[2024-11-08] VITALS (10 sets, daily range): BP systolic 135–188; BP diastolic 73–104; PULSE 61–88; RESP 16–17; TEMP 36.7–36.9; O2SAT 91–99; BMI 28.8
[2024-11-08 13:25] LABS: Basophils % 0.2 %; Hematocrit 46.7 % (36-47); Lymphocytes # 0.9 10^3/uL (0.8-4.8); Lymphocytes % 4.4 %; Mean Corpuscular Hemoglobin 29.8 pg (27-33); Mean Corpuscular Volume 96.1 fl (85-98); Mean Platelet Volume 11.2 fL (7.4-10.4); Monocytes # 0.7 10^3/uL (0.2-0.9); Monocytes % 3.6 %; Neutrophils # 18.52 10^3/uL (1.8-7.7); Neutrophils % 91.6 %; Nucleated Red Blood Cells % 0 %; Platelet Count 393 10^3/cmm (157-399); Red Blood Count 4.86 10^6/uL (3.85-5.65); Red Cell Distribution Width 13.7 % (12.1-15.1); White Blood Count 20.25 10^3/uL (3.29-11.43)
[2024-11-08 13:42] LABS: Lactic Sepsis W/Reflex 1.8 mmol/L (0.5-2.2)
[2024-11-08 13:43] LABS: Alanine Aminotransferase 14 U/L (0-33); Albumin Level 4.5 g/dL (3.5-5.2); Alkaline Phosphatase 94 U/L (35-105); Anion Gap 19.2 (5-19); Aspartate Amino Transferase 20 U/L (0-32); Blood Urea Nitrogen 13 mg/dL (8-23); Calcium 9.9 mg/dL (8.5-10.5); Carbon Dioxide 25 mmol/L (22-29); Chloride 98 mmol/L (98-107); Creatinine Clr Calc Pharmacy 58.3889; Globulin 2.6 g/dL (1.3-4.6); Glucose 151 mg/dL (65-115); Lipase 20 U/L (13-60); Osmolality Calculated 289 mOsm/kg (285-295); Potassium 4.2 mmol/L (3.5-5.1); Sodium 138 mmol/L (136-145); Total Bilirubin 0.7 mg/dL (0.15-1.2); Total Protein 7.1 g/dL (6.6-8.7)
--- NOTE | 2024-11-08 16:15 | CTR_ITS ---
PROCEDURE INFORMATION: Exam: CT Abdomen And Pelvis With Contrast Exam date and time: 11/08/2024 5:05 PM Age: 79 years old Clinical indication: Abdominal pain; Prior surgery; Surgery date: 6+ months; Surgery type: Gb hysto, appy TECHNIQUE: Imaging protocol: Computed tomography of the abdomen and pelvis with contrast. Radiation optimization: All CT scans at this facility use at least one of these dose optimization techniques: automated exposure control; mA and/or kV adjustment per patient size (includes targeted exams where dose is matched to clinical indication); or iterative reconstruction. Contrast material: OMNI 350; Contrast volume: 100 ml; Contrast route: INTRAVENOUS (IV); COMPARISON: CT chest wo con [id number] 08/09/2023 7:36 AM RADIATION DOSE METRICS: Total DLP (mGy-cm): 493.17 FINDINGS: Diaphragm: Small hiatal hernia. Liver: See Gallbladder and biliary ducts finding. Gallbladder and biliary ducts: The gallbladder is absent. Extrahepatic and mild intrahepatic biliary ductal dilatation with no distal stone or mass. Pancreas: Normal. No ductal dilation. Spleen: Normal. No splenomegaly. Adrenal glands: Normal. No mass. Kidneys and ureters: Right simple appearing renal cysts are present which do not need further follow-up, as well as other subcentimeter hypodensities which are too small to adequately characterize. Stomach and bowel: Multiple distended and borderline dilated fluid-filled loops of small bowel in the distal jejunum and proximal ileum with no single abrupt transition point. There is fluid and air within the proximal colon. The terminal, distal and mid ileum are decompressed. Appendix: The appendix is absent. Intraperitoneal space: Unremarkable. No free air. No significant fluid collection. Vasculature: Unremarkable. No abdominal aortic aneurysm. Lymph nodes: Unremarkable. No enlarged lymph nodes. Urinary bladder: Unremarkable as visualized. Reproductive: Unremarkable as visualized. Bones/joints: Unremarkable. No acute fracture. Soft tissues: Unremarkable. CT/CT abdomen pelvis w con* [id number] IMPRESSION: Multiple distended and borderline dilated fluid-filled loops of small bowel in the distal jejunum and proximal ileum with no single abrupt transition point. There is fluid and air within the proximal colon. The terminal, distal and mid ileum are decompressed. Findings can be seen in the setting of early partial small bowel obstruction versus ileus. COMMENTS: Consistent with the [employer]'s Incidental Findings Committee white paper (J Am Sam Radiol 2018): Any incidental renal lesion less than 1 cm or classified as too small to characterize, or any incidental cystic renal lesion characterized as simple-appearing, is likely benign. No follow-up imaging is recommended for these lesions per consensus recommendations based on imaging criteria.
--- NOTE | 2024-11-08 16:48 | ED_ITS ---
HPI - Abdominal Pain 2 General: Chief Complaint: Abdominal Pain Stated Complaint: ABD PAIN Time Seen by Provider: 11/08/24 16:28 History of Present Illness: 79-year-old female with a history of div erticulitis and she says small bowel obstructions in the past that did not require surgery or or an NG tube. She says she started having abdominal pain yesterday. Low abdominal pain in the midline to mid epigastric. Today started having nausea and vomiting. No fevers. No altered mental status. Related Data Home Medications Medication Instructions Recorded Confirmed multivitamin (Daily Multi-Vitamin 1 tab PO DAILY 01/27/21 09/25/24 tablet) Previous Rx's Medication Instructions Recorded amlodipine 2.5 mg tablet (Norvasc) 2.5 mg PO .at bedtime for BP #30 07/10/24 tabs letrozole 2.5 mg tablet See Rx Instructions .Route 08/27/24 .COMPLEX #90 tabs alendronate 70 mg tablet (Fosamax) 70 mg PO .weekly #4 tabs 09/25/24 calcium 500 mg (as 1 tab PO .2 times day #60 tabs 09/25/24 carbonate)-vitamin D3 15 mcg (600 unit) tablet (Os-Denys 500 + D3) cholecalciferol (vitamin D3) 125 125 mcg PO DAILY #30 caps 09/25/24 mcg (5,000 unit) capsule clopidogrel 75 mg tablet 75 mg PO DAILY #30 tabs 09/25/24 escitalopram oxalate 10 mg tablet 10 mg PO DAILY #30 tabs 09/25/24 (Lexapro) famotidine 20 mg tablet 20 mg PO .HS PRN acid reflux #30 09/25/24 tabs icosapent ethyl 1 gram capsule See Rx Instructions .Route 09/25/24 (Vascepa) .COMPLEX #120 caps levothyroxine 75 mcg tablet 75 mcg PO DAILY #30 tabs 09/25/24 lisinopril 40 mg tablet 40 mg PO DAILY #30 tabs 09/25/24 rosuvastatin 40 mg tablet (Crestor) 40 mg PO DAILY #30 tabs 09/25/24 tramadol 50 mg tablet 50 mg PO BID PRN pain #60 tabs 09/25/24 Allergies Allergy/AdvReac Type Severity Reaction Status Date / Time nitrofurantoin Allergy ALGY-Rash Verified 09/25/24 09:24 [From Macrobid] Opioids - Morphine Analogues AdvReac other Verified 09/25/24 09:24 Review of Systems 2 Narrative: Constitutional symptoms: Negative except as documented in HPI. Skin symptoms: Negative except as documented in HPI. Eye symptoms: Negative except as documented in HPI. ENMT symptoms: Negative except as documented in HPI. Respiratory symptoms: Negative except as documented in HPI. Cardiovascular symptoms: Negative except as documented in HPI. Gastrointestinal symptoms: Negative except as documented in HPI. Genitourinary symptoms: Negative except as documented in HPI. Musculoskeletal symptoms: Negative except as documented in HPI. Neurologic symptoms: Negative except as documented in HPI. Psychiatric symptoms: Negative except as documented in HPI. Endocrine symptoms: Negative except as documented in HPI. PFSH ED 2 PFSH: Medical History (Updated 11/08/24 @ 21:39 by Eleni Arnett MD) Lung nodule Vitamin D deficiency Breast cancer Situational anxiety Gastric reflux Mixed hyperlipidemia Age related osteoporosis Osteoarthritis TIA (transient ischemic attack) Environmental and seasonal allergies Essential (primary) hypertension Non-Hodgkin lymphoma in remission 1997 with chemo and radiation History of left breast cancer Surgical History History of cataract extraction July 2023 History of right breast biopsy Fibrocystic breast 1983 History of tonsillectomy History of hysterectomy with BSO History of cholecystectomy History of appendectomy History of lumpectomy of left breast 2019 [place] Family History Other Cancer Dementia Hypertension Stroke Denies family history of Diabetes Clotting disorder Anesthesia complication Bleeding disorder Social History Smoking and tobacco/nicotine status: unknown if used tobacco/nicotine Second hand smoke exposure: No Alcohol intake: never Substance/Drug Use: never Adopted: No Caregiver/support person: No Lives independently: Yes Household members: none Housing: Apartment Marital status: / Number of children: 2 service: No Current occupational status: retired Pets and animals: Yes Pets & animals: cat(s) Do you think of yourself as: Straight/Heterosexual Current gender identity: Female Physical Exam 2 Narrative: EXAM NARRATIVE: General: Alert, no acute distress. Skin: Warm, dry. Head: Normocephalic, atraumatic. Neck: Supple, trachea midline. Eye: Extraocular movements are intact. Ears, nose, mouth and throat: mucosa moist. Cardiovascular: Regular, Normal peripheral perfusion. Respiratory: Lungs are clear to auscultation, respirations are non-labored, breath sounds are equal, Symmetrical chest wall expansion. Gastrointestinal: Soft, Nontender, Non distended Musculoskeletal: Normal ROM, no deformity. Neurological: Alert and oriented, No focal neurological deficit observed. Psychiatric: Cooperative, appropriate mood & affect. Course 2 Vital Signs: Vital signs: Vital Signs Temperature 98.5 F 11/08/24 21:45 Pulse Rate 79 11/08/24 21:45 Respiratory Rate 16 11/08/24 21:45 Blood Pressure 163/79 11/08/24 21:45 Pulse Oximetry 95 11/08/24 21:45 Oxygen Delivery Me thod Room Air 11/08/24 21:45 MDM - Abdominal Pain Medical Decision Making Medical decision making: Differential diagnosis including but not limited to and based on the above HPI, review of systems and physical exam: In this patient with abdominal pain differential would include cholelithiasis or cholecystitis. Hepatitis. Diverticulitis. Constipation. UTI. colitis. small bowel obstruction. crohn's flare. pancreatitis. gastritis. peptic ulcer. also concern for acute cardiac event. Small bowel obstruction. Diverticulitis. Orders placed to evaluate differential diagnosis based on the above differential, HPI and physical exam Lab Review: Laboratory results were reviewed and interpreted by myself the emergency room physician. Lab work shows significant leukocytosis with a white count of 20,000. No anemia. No renal failure. Urinalysis is negative for infection. CT of the abdomen pelvis with contrast: This was consistent with a small bowel obstruction in the proximal small bowel. This was reviewed and interpreted by myself the emergency room physician. I also reviewed the radiology report. Consultation: I spoke with Dr. Núñez who is on-call for general surgery who recommends NG tube placement and admission to the hospitalist service. He will follow. He reviewed imaging. I reviewed the patient's medical record. Reexamination: Patient has an NG tube placed. No acute distress at this time. Discussed findings. Consultation: I spoke with Dr. Lockhart who is on-call for the hospitalist service who agrees to admission. Assessment and plan: Small bowel obstruction Dehydration ?IV fluids, IV pain meds, IV Zofran and an NG tube was placed. -I discussed the patient with the hospitalist on-call who is admitting the patient. - Discussed findings and plan with patient. Answered any questions. - All laboratory values were reviewed and interpreted personally by myself, the ER physician - All imaging was reviewed and interpreted personally by myself, the ER physician. - Evaluation and treatment of this problem were appropriate in the emergency setting Lab Data 11/08/24 13:12 11/08/24 13:12 Labs/Radiology: Radiology Impressions Abdomen/Pelvis CT 11/08/24 16:15 IMPRESSION: Multiple distended and borderline dilated fluid-filled loops of small bowel in the distal jejunum and proximal ileum with no single abrupt transition point. There is fluid and air within the proximal colon. The terminal, distal and mid ileum are decompressed. Findings can be seen in the setting of early partial small bowel obstruction versus ileus. COMMENTS: Consistent with the [employer]'s Incidental Findings Committee white paper (J Am Sam Radiol 2018): Any incidental renal lesion less than 1 cm or classified as too small to characterize, or any incidental cystic renal lesion characterized as simple-appearing, is likely benign. No follow-up imaging is recommended for these lesions per consensus recommendations based on imaging criteria. ADDENDUM: 11/08/24 0762 THIS REPORT CONTAINS FINDINGS THAT MAY BE CRITICAL TO PATIENT CARE. The findings were verbally communicated via telephone conference with ELENI Jiménez at 6:20 PM ARMORED MACHINE OPERATOR on 11/08/2024. The findings were acknowledged and understood. Chest X-Ray 11/08/24 20:42 IMPRESSION: The NG tube tracks into the stomach. Laboratory Results WBC 20.25 10^3/uL (3.29-11.43) H 11/08/24 13:12 RBC 4.86 10^6/uL (3.85-5.65) 11/08/24 13:12 Hgb 14.50 g/dL (11.27-16.99) 11/08/24 13:12 Hct 46.7 % (36-47) 11/08/24 13:12 MCV 96.1 fl (85-98) 11/08/24 13:12 MCH 29.8 pg (27-33) 11/08/24 13:12 MCHC 31.0 g/dL (30-55) 11/08/24 13:12 RDW 13.7 % (12.1-15.1) 11/08/24 13:12 Plt Count 393 10^3/cmm (157-399) 11/08/24 13:12 MPV 11.2 fL (7.4-10.4) H 11/08/24 13:12 Neut % (Auto) 91.6 % 11/08/24 13:12 Lymph % (Auto) 4.4 % 11/08/24 13:12 [place] % (Auto) 3.6 % 11/08/24 13:12 Eos % (Auto) 0.0 % 11/08/24 13:12 Baso % (Auto) 0.2 % 11/08/24 13:12 Neut # (Auto) 18.52 10^3/uL (1.8-7.7) H 11/08/24 13:12 Lymph # (Auto) 0.9 10^3/uL (0.8-4.8) 11/08/24 13:12 [place] # (Auto) 0.7 10^3/uL (0.2-0.9) 11/08/24 13:12 Eos # (Auto) 0.0 10^3/uL (0.0-0.8) 11/08/24 13:12 Baso # (Auto) 0.0 10^3/uL (0.0-0.1) 11/08/24 13:12 Nucleated RBC % (auto) 0 % 11/08/24 13:12 Nucleated RBCs # 0.0 /100WBC 11/08/24 13:12 Sodium 138 mmol/L (136-145) 11/08/24 13:12 Potassium 4.2 mmol/L (3.5-5.1) 11/08/24 13:12 Chloride 98 mmol/L (98-107) 11/08/24 13:12 Carbon Dioxide 25 mmol/L (22-29) 11/08/24 13:12 Anion Gap 19.2 (5-19) H 11/08/24 13:12 BUN 13 mg/dL (8-23) 11/08/24 13:12 Creatinine 0.7 mg/dL (0.5-0.9) 11/08/24 13:12 GFR Calculation Not Reportable 11/08/24 13:12 Glucose 151 mg/dL (65-115) H 11/08/24 13:12 Calculated Osmolality 289 mOsm/kg (285-295) 11/08/24 13:12 Lactic Acid 1.8 mmol/L (0.5-2.2) 11/08/24 13:12 Calcium 9.9 mg/dL (8.5-10.5) 11/08/24 13:12 Total Bilirubin 0.7 mg/dL (0.15-1.2) 11/08/24 13:12 AST 20 U/L (0-32) 11/08/24 13:12 ALT 14 U/L (0-33) 11/08/24 13:12 Alkaline Phosphatase 94 U/L (35-105) 11/08/24 13:12 C-Reactive Protein 3.0 mg/L (0.0-4.9) 11/08/24 13:12 Total Protein 7.1 g/dL (6.6-8.7) 11/08/24 13:12 Albumin 4.5 g/dL (3.5-5.2) 11/08/24 13:12 Globulin 2.6 g/dL (1.3-4.6) 11/08/24 13:12 Lipase 20 U/L (13-60) 11/08/24 13:12 Urine Color Yellow (Yellow) 11/08/24 18:30 Urine Appearance Clear (CLEAR) 11/08/24 18:30 Urine pH 7.0 (5-7) 11/08/24 18:30 Ur Specific [place] 1.074 (1.005-1.030) H 11/08/24 18:30 Urine Protein 2+ (Negative) A 11/08/24 18:30 Urine Glucose (UA) Negative (Normal) 11/08/24 18:30 Urine Ketones Trace (Negative) 11/08/24 18:30 Urine Blood Negative (Negative) 11/08/24 18:30 Urine Nitrate Negative (Negative) 11/08/24 18:30 Urine Bilirubin Negative (Negative) 11/08/24 18:30 Urine Urobilinogen 0.2 mg/dL (Negative) 11/08/24 18:30 Ur Leukocyte Esterase Negative (Negative) 11/08/24 18:30 Urine RBC 3-5 /hpf (0-2) 11/08/24 18:30 Urine WBC 0-5 /hpf (0-5) 11/08/24 18:30 Ur Squamous Epith Cells 0-5 /hpf (0-5) 11/08/24 18:30 Amorphous Sediment Not Reportable 11/08/24 18:30 Urine Bacteria None seen /hpf (NONE) 11/08/24 18:30 Hyaline Casts 0.40 /lpf 11/08/24 18:30 All radiology interpretation(s) finalized by discharge Discharge Plan Discharge Patient Disposition: Admitted As Inpatient Admit Provider: Quincy Lockhart Clinical Impression: Small bowel obstruction, Dehydration Condition: Stable Coding Level of Care Code ED Dishroom Attendant for Chloé Blanton
[2024-11-08] MEDS: iohexol 350 mg/mL 500 mL Btl (per mL) IV (17:06)
[2024-11-08] MEDS: sodium chloride 0.9% 1,000 ML 999 ML IV (17:22)
[2024-11-08] MEDS: HYDROmorphone 1 mg/mL INJ 1 mL 0.5 MG IVP (17:24)
[2024-11-08] MEDS: ondansetron 2 mg/ML SDV 2 mL 8 MG IVP (17:24)
[2024-11-08 18:49] LABS: Bilirubin Urine Negative (Negative); Blood Urine Negative (Negative); Glucose Urine UA Negative (Normal); Ketones Urine Trace (Negative); Leukocyte Esterase Urine Negative (Negative); Nitrate Urine Negative (Negative); Protein Urine 2+ (Negative); Urine Appearance Clear (CLEAR); Urine Color Yellow (Yellow); Urobilinogen Urine 0.2 mg/dL (Negative)
[2024-11-08 18:51] LABS: Bacteria Urine None Seen /hpf; Squamous Epithelial Cell Urine 0-5 /hpf (0-5); WBC Urine 0-5 /hpf (0-5)
[2024-11-08 18:57] LABS: Specific Gravity, Urine 1.074 (1.005-1.030)
--- NOTE | 2024-11-08 20:00 | P.HP_ITS ---
Providers/Chief Complaint 2 Primary Care Provider: RUEL Lugo Chief Complaint: ABD PAIN History of Present Illness Beryl Juárez is a 79 year old female with a past medical history significant for breast cancer, GERD, hyperlipidemia, non-Hodgkin's lymphoma, hysterectomy with BSO, open cholecystectomy, appendectomy, and multiple other comorbidities who presents to the emergency department via EMS with severe abdominal pain associated with nausea and vomiting. She reports onset yesterday evening. She describes the pain as being in her lower quadrants. She reports nausea with multiple severe episodes of emesis today. Oral intake worsens symptoms. Analgesics and antiemetics given in ER improved her symptoms. She does endorse history of prior small bowel obstructions managed medically. She does have a history of prior intra-abdominal surgeries. Family is bedside and very supportive. In the emergency department, labs revealed leukocytosis to 20.25. CT abdomen pelvis revealed multiple distended borderline dilated fluid-filled loops of small bowel in the distal jejunum and proximal ileum without single abrupt transition points concerning for small bowel obstruction versus ileus. Review of Systems 2 Narrative: A complete review of systems was obtained and is negative except as stated in HPI. Medications/Allergies Home Medications Medication Instructions Recorded Confirmed Last Taken Type multivitamin (Daily Multi-Vitamin 1 tab PO DAILY 01/27/21 09/25/24 Unknown History tablet) amlodipine 2.5 mg tablet (Norvasc) 2.5 mg PO .at bedtime for BP #30 07/10/24 09/25/24 Unknown Rx tabs letrozole 2.5 mg tablet See Rx Instructions .Route 08/27/24 09/25/24 Unknown Rx .COMPLEX #90 tabs alendronate 70 mg tablet (Fosamax) 70 mg PO .weekly #4 tabs 09/25/24 09/25/24 Unknown Rx calcium 500 mg (as 1 tab PO .2 times day #60 tabs 09/25/24 09/25/24 Unknown Rx carbonate)-vitamin D3 15 mcg (600 unit) tablet (Os-Denys 500 + D3) cholecalciferol (vitamin D3) 125 125 mcg PO DAILY #30 caps 09/25/24 09/25/24 Unknown Rx mcg (5,000 unit) capsule clopidogrel 75 mg tablet 75 mg PO DAILY #30 tabs 09/25/24 09/25/24 Unknown Rx escitalopram oxalate 10 mg tablet 10 mg PO DAILY #30 tabs 09/25/24 09/25/24 Unknown Rx (Lexapro) famotidine 20 mg tablet 20 mg PO .HS PRN acid reflux #30 09/25/24 09/25/24 Unknown Rx tabs icosapent ethyl 1 gram capsule See Rx Instructions .Route 09/25/24 09/25/24 Unknown Rx (Vascepa) .COMPLEX #120 caps levothyroxine 75 mcg tablet 75 mcg PO DAILY #30 tabs 09/25/24 09/25/24 Unknown Rx lisinopril 40 mg tablet 40 mg PO DAILY #30 tabs 09/25/24 09/25/24 Unknown Rx rosuvastatin 40 mg tablet (Crestor) 40 mg PO DAILY #30 tabs 09/25/24 09/25/24 Unknown Rx tramadol 50 mg tablet 50 mg PO BID PRN pain #60 tabs 09/25/24 09/25/24 Unknown Rx Allergies Allergy/AdvReac Type Severity Reaction Status Date / Time nitrofurantoin Allergy ALGY-Rash Verified 09/25/24 09:24 [From Macrobid] Opioids - Morphine Analogues AdvReac other Verified 09/25/24 09:24 PFSH Acute 2 PFSH: Medical History (Updated 11/08/24 @ 21:03 by Quincy Lockhart MD) Lung nodule Vitamin D deficiency Breast cancer Situational anxiety Gastric reflux Mixed hyperlipidemia Age related osteoporosis Osteoarthritis TIA (transient ischemic attack) Environmental and seasonal allergies Essential (primary) hypertension Non-Hodgkin lymphoma in remission 1997 with chemo and radiation History of left breast cancer Surgical History History of cataract extraction July 2023 History of right breast biopsy Fibrocystic breast 1983 History of tonsillectomy History of hysterectomy with BSO History of cholecystectomy History of appendectomy History of lumpectomy of left breast 2019 [place] Family History Other Cancer Dementia Hypertension Stroke Denies family history of Diabetes Clotting disorder Anesthesia complication Bleeding disorder Social History Smoking and tobacco/nicotine status: unknown if used tobacco/nicotine Second hand smoke exposure: No Alcohol intake: never Substance/Drug Use: never Adopted: No Caregiver/support person: No Lives independently: Yes Household members: none Housing: Apartment Marital status: / Number of children: 2 service: No Current occupational status: retired Pets and animals: Yes Pets & animals: cat(s) Do you think of yourself as: Straight/Heterosexual Current gender identity: Female Vitals/I&O/Wt Last Vital Signs Temp 98.1 F 11/08/24 12:43 Pulse 82 11/08/24 18:30 Resp 16 11/08/24 17:24 BP 177/77 11/08/24 18:30 Pulse Ox 95 11/08/24 18:30 O2 Del Method Room Air 11/08/24 12:43 Weight last 48 hrs Weight 64.864 kg Physical Exam 2 Narrative: General: Patient is awake and alert. Conversational. Pleasant. Head: Normocephalic. Atraumatic. EOM intact. Neck: No JVD. Cardiovascular: RRR. No gallops. No murmurs. Lungs: Clear to auscultation, no use of accessory muscles, no crackles or wheezes. Skin: No jaundice. No rashes. Abdomen: Hypoactive bowel sounds, abdomen mildly tender in lower quadrants. No guarding. Well-healed old midline surgical incision. Genito Urinary: Genital exam not performed since complaints not related. Rectal: Rectal exam not performed since no symptoms indicated blood loss. Extremities: No cyanosis or clubbing. Musculoskeletal: No swollen or erythematous joints. Neurological: Moves all 4 extremities. No myoclonus. Data 11/08/24 13:12 11/08/24 13:12 Micro: Microbiology 11/08/24 13:15 Blood Culture - Preliminary Blood SPECIMEN COLLECTED 11/08/24 13:12 Blood Culture - Preliminary Blood SPECIMEN COLLECTED A&P Assessment and plan (1) Abdominal pain: Abdominal pain secondary to small bowel obstruction versus ileus General surgery consulted, appreciate recommendations Bowel rest with NG tube decompression IV antiemetics as needed IV analgesics as needed IV fluids ordered Serial exams Supportive care (2) Leukocytosis: Leukocytosis, stress-induced versus possible infection Check inflammatory markers (3) Essential (primary) hypertension: Hold home oral medications IV antihypertensive as needed (4) Mixed hyperlipidemia: Hold home meds due to n.p.o. status (5) Adult onset hypothyroidism: Hold home meds due to n.p.o. status Plan to restart when oral intake resumes (6) Gastric reflux: IV PPI (7) TIA (transient ischemic attack): Hold Plavix for now Plan DVT prophylaxis: Lovenox Attestations 2 Medical Necessity Statement*: Patient presents with severe abdominal pain associate with nausea and vomiting with imaging concerning for small bowel obstruction versus ileus with expected hospitalization to cross 2 midnights for general surgery evaluation, IV fluids, antiemetics, analgesics, probable additional imaging, serial exams, and supportive care. Coding Level of Care Code Acute Code for Chg Fwd Diagnoses Abdominal pain R10.9 Leukocytosis D72.829 Essential (primary) hypertension I10 Mixed hyperlipidemia E78.2 Adult onset hypothyroidism E03.8 Gastric reflux K21.9 TIA (transient ischemic attack) G45.9
[2024-11-08] MEDS: LORazepam 2 mg/mL INJ 1 mL 1 MG IVP (20:30)
--- NOTE | 2024-11-08 20:42 | XRR_ITS ---
PROCEDURE INFORMATION: Exam: XR Chest Exam date and time: 11/08/2024 8:43 PM Age: 79 years old Clinical indication: Device placement; Patient HX: Ng tube confirmation TECHNIQUE: Imaging protocol: Radiologic exam of the chest. Views: 1 view. COMPARISON: CR XR chest 2V* [id number] 02/07/2024 9:55 AM FINDINGS: Tubes, catheters and devices: The NG tube tracks into the stomach. Lungs: Unremarkable. No consolidation. Pleural spaces: Unremarkable. No pleural effusion. No pneumothorax. Heart/Mediastinum: Unremarkable. No cardiomegaly. Bones/joints: Unremarkable. XR/XR chest 1V portable [id number] IMPRESSION: The NG tube tracks into the stomach.
[2024-11-08] MEDS: pantoprazole 40 mg SDV IVP (22:21)
[2024-11-08] MEDS: HYDROmorphone 1 mg/mL INJ 1 mL 0.4 MG IVP (22:21)
[2024-11-08] MEDS: dextrose 5%-sod chloride 0.45% 1,000 ML 65 ML IV (22:29)
[2024-11-08] MEDS: enoxaparin 40 mg/0.4 mL Syringe SUBCUT (22:29)
[2024-11-08 22:32] LABS: Procalcitonin 0.08 ng/mL (0-0.5)
[2024-11-08] MEDS: phenol oral Spray 177 mL 3 SPRAY MUCOUS MEM (23:52)
[2024-11-09] VITALS (83 sets, daily range): BP systolic 128–146; BP diastolic 59–75; PULSE 63–172; RESP 11–29; TEMP 36.3–36.8; O2SAT 92–96
[2024-11-09 03:43] LABS: Basophils % 0.3 %; Eosinophils # 0.1 10^3/uL (0.0-0.8); Eosinophils % 0.4 %; Hematocrit 37.4 % (36-47); Lymphocytes # 1.6 10^3/uL (0.8-4.8); Lymphocytes % 13.2 %; Mean Corpuscular HGB Conc 31.3 g/dL (30-55); Mean Corpuscular Hemoglobin 30.7 pg (27-33); Mean Corpuscular Volume 98.2 fl (85-98); Mean Platelet Volume 11.2 fL (7.4-10.4); Monocytes % 7.8 %; Neutrophils # 9.51 10^3/uL (1.8-7.7); Neutrophils % 78.1 %; Nucleated Red Blood Cells % 0 %; Platelet Count 319 10^3/cmm (157-399); Red Blood Count 3.81 10^6/uL (3.85-5.65); White Blood Count 12.19 10^3/uL (3.29-11.43)
[2024-11-09 04:04] LABS: Alanine Aminotransferase 10 U/L (0-33); Albumin Level 3.8 g/dL (3.5-5.2); Alkaline Phosphatase 69 U/L (35-105); Anion Gap 13.2 (5-19); Aspartate Amino Transferase 15 U/L (0-32); Blood Urea Nitrogen 14 mg/dL (8-23); Calcium 8.6 mg/dL (8.5-10.5); Carbon Dioxide 26 mmol/L (22-29); Chloride 104 mmol/L (98-107); Creatinine Clr Calc Pharmacy 58.3889; Globulin 1.9 g/dL (1.3-4.6); Glucose 128 mg/dL (65-115); Magnesium 2.4 mg/dL (1.7-2.3); Osmolality Calculated 290 mOsm/kg (285-295); Phosphorus 2.7 mg/dL (2.5-4.5); Potassium 4.2 mmol/L (3.5-5.1); Sodium 139 mmol/L (136-145); Total Bilirubin 0.6 mg/dL (0.15-1.2); Total Protein 5.7 g/dL (6.6-8.7)
--- NOTE | 2024-11-09 07:20 | P.CONIM_ITS ---
Providers/Reason For Consult 2 Consulting Physician/Specialty*: General Surgery Reason for Consult*: Small bowel obstruction Attending Physician: Selena Bundy MD Primary Care Provider: RUEL Lugo History of Present Illness History of Present Illness Beryl Juárez is a 79 year old female who presents to the hospital with abdominal pain nausea and vomit. According to the patient she has had episodes of partial SBO in the past managed conservatively. She does have extensive surgical history including laparotomy for cholecystectomy as well as resection of lymphoma according to the patient. Endorses passing gas but no bowel movements in the last 24 hours Review of Systems 2 General: Reports: 10 or more systems reviewed and unremarkable except in HPI and below Medications/Allergies Home Medications Medication Instructions Recorded Confirmed Last Taken Type multivitamin (Daily Multi-Vitamin 1 tab PO DAILY 01/27/21 09/25/24 Unknown History tablet) amlodipine 2.5 mg tablet (Norvasc) 2.5 mg PO .at bedtime for BP #30 07/10/24 09/25/24 Unknown Rx tabs letrozole 2.5 mg tablet See Rx Instructions .Route 08/27/24 09/25/24 Unknown Rx .COMPLEX #90 tabs alendronate 70 mg tablet (Fosamax) 70 mg PO .weekly #4 tabs 09/25/24 09/25/24 Unknown Rx calcium 500 mg (as 1 tab PO .2 times day #60 tabs 09/25/24 09/25/24 Unknown Rx carbonate)-vitamin D3 15 mcg (600 unit) tablet (Os-Denys 500 + D3) cholecalciferol (vitamin D3) 125 125 mcg PO DAILY #30 caps 09/25/24 09/25/24 Unknown Rx mcg (5,000 unit) capsule clopidogrel 75 mg tablet 75 mg PO DAILY #30 tabs 09/25/24 09/25/24 Unknown Rx escitalopram oxalate 10 mg tablet 10 mg PO DAILY #30 tabs 09/25/24 09/25/24 Unknown Rx (Lexapro) famotidine 20 mg tablet 20 mg PO .HS PRN acid reflux #30 09/25/24 09/25/24 Unknown Rx tabs icosapent ethyl 1 gram capsule See Rx Instructions .Route 09/25/24 09/25/24 Unknown Rx (Vascepa) .COMPLEX #120 caps levothyroxine 75 mcg tablet 75 mcg PO DAILY #30 tabs 09/25/24 09/25/24 Unknown Rx lisinopril 40 mg tablet 40 mg PO DAILY #30 tabs 09/25/24 09/25/24 Unknown Rx rosuvastatin 40 mg tablet (Crestor) 40 mg PO DAILY #30 tabs 09/25/24 09/25/24 Unknown Rx tramadol 50 mg tablet 50 mg PO BID PRN pain #60 tabs 09/25/24 09/25/24 Unknown Rx Allergies Allergy/AdvReac Type Severity Reaction Status Date / Time nitrofurantoin Allergy ALGY-Rash Verified 09/25/24 09:24 [From Macrobid] Opioids - Morphine Analogues AdvReac other Verified 09/25/24 09:24 Current Medications Generic Name Dose Route Start Last Admin Trade Name Freq PRN Reason Stop Dose Admin Enoxaparin Sodium 40 mg 11/08/24 21:45 11/08/24 22:29 Enoxaparin 40 Mg/0.4 Ml Syringe SUBCUT 40 mg Q24H INDIRA Administration Hydromorphone HCl 0.4 mg 11/08/24 21:05 11/08/24 22:21 Hydromorphone 1 Mg/Ml Inj 1 Ml IVP 0.4 mg Q3H PRN Administration PAIN 5-10 Dextrose/Sodium Chloride 1,000 mls @ 65 mls/hr 11/08/24 21:45 11/08/24 22:29 Dextrose 5%-Sod Chloride 0.45% IV 65 mls/hr .[id number] INDIRA Administration Pantoprazole Sodium 40 mg 11/08/24 21:45 11/08/24 22:21 Pantoprazole 40 Mg Sdv IVP 40 mg Q12H INDIRA Administration Phenol 3 spray 11/08/24 23:22 11/08/24 23:52 Phenol Oral [place] 177 Ml MUCOUS MEM 3 spray Q2H PRN Administration SORE THROAT PFSH Acute 2 PFSH: Medical History (Updated 11/08/24 @ 21:39 by Eleni Arnett MD) Lung nodule Vitamin D deficiency Breast cancer Situational anxiety Gastric reflux Mixed hyperlipidemia Age related osteoporosis Osteoarthritis TIA (transient ischemic attack) Environmental and seasonal allergies Essential (primary) hypertension Non-Hodgkin lymphoma in remission 1997 with chemo and radiation History of left breast cancer Surgical History History of cataract extraction July 2023 History of right breast biopsy Fibrocystic breast 1984 History of tonsillectomy History of hysterectomy with BSO History of cholecystectomy History of appendectomy History of lumpectomy of left breast 2019 [place] Family History Other Cancer Dementia Hypertension Stroke Denies family history of Diabetes Clotting disorder Anesthesia complication Bleeding disorder Social History Smoking and tobacco/nicotine status: unknown if used tobacco/nicotine Second hand smoke exposure: No Alcohol intake: never Substance/Drug Use: never Adopted: No Caregiver/support person: No Lives independently: Yes Household members: none Housing: Apartment Marital status: / Number of children: 2 service: No Current occupational status: retired Pets and animals: Yes Pets & animals: cat(s) Do you think of yourself as: Straight/Heterosexual Current gender identity: Female Vitals/I&O/Wt Last Vital Signs Temp 98.2 F 11/09/24 04:00 Pulse 82 11/09/24 04:00 Resp 16 11/09/24 04:00 BP 128/66 11/09/24 04:00 Pulse Ox 93 11/09/24 04:00 O2 Del Method Room Air 11/09/24 04:00 11/08/24 11/09/24 11/09/24 22:59 06:59 14:59 Intake Total 1000 / 1000 Balance 1000 / 1000 Weight last 48 hrs Weight 145 lb 12.8 oz Weight 143 lb Physical Exam 2 Narrative: General : Patient is well developed , no acute distress, oriented x3 Head : Normal cephalic, a-traumatic. Nose : Mucous membranes are without erythema. Lungs : Equal chest rise bilaterally, no use of accessory muscles, trachea is midline. CV : Rate and rhythm are normal. Abdomen : Soft, nondistended there is good bowel sounds and minimal tenderness in the suprapubic area Extremities : No edema. Upper extremities are normal bilaterally. Back : non-tender to palpation, no CVA tenderness. Data 11/09/24 03:20 11/09/24 03:20 Micro: Microbiology 11/08/24 13:15 Blood Culture - Preliminary Blood SPECIMEN COLLECTED 11/08/24 13:12 Blood Culture - Preliminary Blood SPECIMEN COLLECTED A&P Assessment and plan (1) Small bowel obstruction: (2) Abdominal pain: Plan 79-year-old female presenting with a possible partial SBO. Initial management with NG tube was attempted but unfortunately NG tube dislodged overnight, output was minimal until then and patient has not had any additional nausea or vomit. I have discussed with the patient we have decided to continue n.p.o. and continue management without NG tube with a compromise that if she has any other episode of nausea or vomit NG tube will need to be replaced. At this point we will wait for return of bowel function, patient will ambulate and if she is able to have a bowel movement she will be started on clears and advance as tolerated. In the case of lack of bowel function we will plan for Gastrografin trial tomorrow. Patient shows understanding agrees with the plan. I appreciate medical management of comorbidities by primary team. -Conservative management of partial SBO -NG tube reinsertion in case of vomiting -Ambulate as tolerated -Ice chips -All other management per primary team Consult Attestations 2 Medical Necessity Statement: Per primary Coding Level of Care Code Acute Code for Chg Fwd Diagnoses Small bowel obstruction K56.609 Abdominal pain R10.9
[2024-11-09] MEDS: pantoprazole 40 mg SDV IVP ×2 (09:15→20:22)
[2024-11-09] MEDS: HYDROmorphone 1 mg/mL INJ 1 mL 0.4 MG IVP ×2 (10:50→18:57)
--- NOTE | 2024-11-09 11:00 | ECG_ITS ---
[facility] [employer] Test Date: 2024-11-09 Pat Name: Beryl Juárez Department: Room: 263 Gender: Female Golf Sales Associate: : [id number] Requested By: Selena Bundy Order Number: [id number] Reading MD: APRYL HOOVER Measurements Intervals [place] Rate: 157 P: 0 NH: 0 QRS: 72 QRSD: 126 T: -64 QT: 288 QTc: 465 Interpretive Statements ATRIAL FLUTTER/TACHYCARDIA WITH RAPID VENTRICULAR RESPONSE RIGHT BUNDLE BRANCH BLOCK [120+ ms QRS DURATION, UPRIGHT V1, 40+ ms S IN I/aVL/V4/V5/V6] ST DEVIATION AND MODERATE T-WAVE ABNORMALITY, CONSIDER INFERIOR ISCHEMIA [-0.1+ mV T-WAVE IN II/aVF] CRITICAL TEST RESULT No previous ECG available for comparison Electronically Signed On 11-11-2024 23:15:52 FAMILY AND MARRIAGE COUNSELLOR by APRYL HOOVER [id number]
--- NOTE | 2024-11-09 11:00 | PC.CHAP ---
Pastoral Care Encounter/Spiritual Assessment Type of Contact [] Declined propeller inspector visit [] Patient/Family/Request visit [] Outpatient visit [] Follow-up visit [] Physician referral [] Code/Alert [] Routine visit [] Staff referral [] Actively dying [] Patient sleeping [] Family support [] [] Out of room [] Palliative care [] [] Receiving care in room [] Pre-surgical visit [] Trauma [] Long length of stay [] ICU visit [x] Other: Staff Relational/Emotional Strength [] Patient feels connected with others/family/visitors/staff [] Distress [] Loneliness/isolation [] Abandonment Spirituality of Patient [] Person of Brook [] Attends Christianity of their [place] [] Believes in Prayer [] Reads Bible or Yazidi materials [] There are Spiritual issues to be addressed Public Affairs Officer Interventions [] Prayer [] Active listening [] Non-anxious presence [] Spiritual/emotional support [] Crisis/trauma care [] Spiritual counseling [] Bereavement support [] Provided bereavement packet [] Provided Bible/devotional materials [] Provided toy/stuffed animal, coloring book to patient or family member [] Provided Communion [] Anointing/Johnson [] Salvation [] Completed spiritual assessment [] Other: Impact on Illness or Injury [] Angry [] Fearful [] Anxious [] Often cries [] Exhaustion [] Unable to work [] Unable to attend pentecostal [] Unable to walk/stand [] Unable to read [] Unable to drive [] Unable to eat/drink [] Unable to sleep [] Unable to be with family [] Patient intubated [] Other: Summary Time spent with patient
--- NOTE | 2024-11-09 11:19 | PC.NURSE ---
FIRE ALARM INSPECTOR reported to me Patient had high heart rate at vitals check, Cardiac monitoring applied and pateint appeared to be in A-fib with RVR. Dr. Bundy called and order obtained for EKG, EKG completed. Awaiting further orders at this time. Patient is not symptomatic.
[2024-11-09] MEDS: metoprolol tartrate 1 mg/1 mL SDV 5 mL 5 MG IVP (11:47)
--- NOTE | 2024-11-09 11:54 | P.PN_ITS ---
Subjective 2 Subjective: Patient seen at bedside this morning, she has improvement in abdominal pain. NGT dislodged overnight. She denies nausea , vomiting. She is yet to have a bowel movement. She developed atrial fibrillation with RVR this morning. Vitals/I&O/Wt Last Vital Signs Temp 98.2 F 11/09/24 08:00 Pulse 149 H 11/09/24 11:30 Resp 15 11/09/24 11:30 BP 137/73 11/09/24 08:00 Pulse Ox 92 11/09/24 08:00 O2 Del Method Room Air 11/09/24 10:56 11/08/24 11/09/24 11/09/24 22:59 06:59 14:59 Intake Total 1000 / 1000 Balance 1000 / 1000 Weight last 48 hrs Weight 66.134 kg Weight 64.864 kg Physical Exam 2 Const: COMMON NORMALS: no acute distress, patient oriented x3 and alert HENMT: COMMON NORMALS: normocephalic, atraumatic, external ears normal, Normal external nose present, moist oral mucous membranes and oropharynx normal HEAD & SCALP: normocephalic and atraumatic NOSE: Normal external nose present E XTERNAL EAR: Yes external ears normal Eye: COMMON NORMALS: Equal, round and reactive pupils present, EOMs intact bilaterally, conjunctivae normal and no scleral icterus CONJUNCTIVA: Yes conjunctivae normal PUPIL: Yes Equal, round and reactive pupils present Neck/C-Spine: COMMON NORMALS: full ROM and no lymphadenopathy Chest: COMMONS NORMALS: normal inspection of the chest Resp: COMMON NORMALS: normal respiratory effort and clear to auscultation bilaterally AUSCULTATION: clear to auscultation bilaterally OTHER: No wheezes or crcakles Cardio: OTHER: Tachycardia S1-S2, irregular rate and rhythm irregular GI: COMMON NORMALS: Normal to inspection, nondistended, normoactive bowel sounds present, Soft to palpation and non-tender PALPATION: Yes Soft to palpation Extremity: COMMON NORMALS: normal to inspection and no pedal edema Neuro: COMMON NORMALS: patient oriented x3 SENSORIUM/ORIENTATION: Yes alert OTHER: No gross focal deficits Data 11/09/24 03:20 11/09/24 03:20 Micro: Microbiology 11/08/24 13:15 Blood Culture - Preliminary Blood SPECIMEN COLLECTED 11/08/24 13:12 Blood Culture - Preliminary Blood SPECIMEN COLLECTED A&P Assessment and plan (1) Abdominal pain: # Small bowel obstruction # Abdominal pain - she has improvement in abdominal pain. NGT dislodged overnight. She denies nausea , vomiting. She is yet to have a bowel movement -General Surgery following, plan to continue conservative management and await return of bowel function . Replace NG tube if patient starts to have nausea, vomiting or abdominal pain. Plan for Gastrografin challenge tomorrow if patient does not have a bowel movement -Continue n.p.o. status -IV antiemetics as needed -IV analgesics as needed -IV fluids ordered -Continue supportive care (2) Leukocytosis: Leukocytosis, stress-induced and is improved today -Continue to monitor -UA and chest x-ray negative (3) Atrial fibrillation with RVR: -Patient developed tachycardia today and was found to have atrial fibrillation with RVR -She denies history of atrial fibrillation -Patient started on metoprolol, she may need diltiazem infusion -Check echo, troponin -Consult cardiology as appropriate -Discuss anticoagulation (4) Essential (primary) hypertension: -Resume antihypertensives (5) Mixed hyperlipidemia: -Resume chronic medications (6) Adult onset hypothyroidism: -Resume chronic medications (7) Gastric reflux: IV PPI (8) TIA (transient ischemic attack): Hold Plavix for now Plan DVT prophylaxis: Lovenox Attestations 2 Medical Necessity Statement*: Patient requires inpatient care for management of small bowel obstruction. Coding Level of Care Code Acute Code for Chg Fwd Diagnoses Abdominal pain R10.9 Leukocytosis D72.829 Atrial fibrillation with RVR I48.91 Essential (primary) hypertension I10 Mixed hyperlipidemia E78.2 Adult onset hypothyroidism E03.8 Gastric reflux K21.9 TIA (transient ischemic attack) G45.9
[2024-11-09] MEDS: metoprolol tartrate 25 mg Tablet PO (12:13)
--- NOTE | 2024-11-09 12:14 | PM.MISC ---
Miscellaneous Note Purpose of Documentation: Update on patient care Note: Evaluated this afternoon, passing gas and has not had any more vomit. According to the patient her abdominal distention has improved. Has not had a bowel movement yet. Has developed A-fib with RVR and is currently getting treatment with metoprolol. The patient continues on the current clinical progression when she is having a bowel movement we will allow her to have diet if she has not had a bowel movement until tomorrow I will do a Gastrografin trial to evaluate for resolution of SBO. In the case of nausea or vomit we will put an NG tube and decompress for additional 24 hours before Gastrografin trial
[2024-11-09] MEDS: dextrose 5%-sod chloride 0.45% 1,000 ML 65 ML IV (12:37)
[2024-11-09 12:59] LABS: Troponin T (5th) Once 20 ng/L (0-10)
[2024-11-09 13:07] LABS: Thyroid Stimulating Hormone 1.48 uIU/mL (0.27-4.20)
[2024-11-09 19:46] LABS: Troponin T (5th) Once 19 ng/L (0-10)
[2024-11-09] MEDS: amlodipine 5 mg Tablet 2.5 MG PO (20:22)
[2024-11-09] MEDS: atorvastatin 40 mg Tablet 20 MG PO (20:22)
[2024-11-09] MEDS: enoxaparin 40 mg/0.4 mL Syringe SUBCUT (20:30)
[2024-11-10] VITALS (8 sets, daily range): BP systolic 121–155; BP diastolic 68–88; PULSE 52–76; RESP 15–17; TEMP 36.4–36.8; O2SAT 94–97
[2024-11-10 04:35] LABS: Hematocrit 36.5 % (36-47); Mean Corpuscular Hemoglobin 30.5 pg (27-33); Mean Corpuscular Volume 98.6 fl (85-98); Mean Platelet Volume 11.5 fL (7.4-10.4); Platelet Count 245 10^3/cmm (157-399); Red Cell Distribution Width 13.9 % (12.1-15.1); White Blood Count 9.39 10^3/uL (3.29-11.43)
[2024-11-10 04:58] LABS: Albumin Level 3.7 g/dL (3.5-5.2); Blood Urea Nitrogen 10 mg/dL (8-23); Calcium 8.7 mg/dL (8.5-10.5); Carbon Dioxide 27 mmol/L (22-29); Chloride 103 mmol/L (98-107); Glucose 116 mg/dL (65-115); Phosphorus 2.4 mg/dL (2.5-4.5); Sodium 140 mmol/L (136-145)
[2024-11-10 05:25] LABS: Absolute Eosinophils 0.1 10^3/cmm (0.0-0.7); Absolute Neutrophil 6.9 10^3/cmm (1.4-6.5); Absolute Segmented Neutrophil 6.9 10/cmm (1.6-7.1); Eosinophils 1 %; Lymphocytes 15 %; Lymphocytes Absolute 1.6 10^3/cmm (1.2-3.4); Monocytes Absolute 0.8 10^3/cmm (0.1-0.6); Platelet Estimate Normal (Normal); Segmented Neutrophils 73 %; Total Cells Counted 100 (0-100)
[2024-11-10 05:28] LABS: Anion Gap 13.7 (5-19); Potassium 3.7 mmol/L (3.5-5.1)
[2024-11-10] MEDS: dextrose 5%-sod chloride 0.45% 1,000 ML 65 ML IV ×2 (06:03→19:38)
--- NOTE | 2024-11-10 07:55 | P.PN_ITS ---
Subjective 2 Subjective: Patient admitted with partial small bowel obstruction. Doing well from the surgical standpoint. Had 3 bowel movements overnight and is passing significant amount of gas and abdominal pain abdominal distention. She did develop A-fib with RVR yesterday that has been managed by medical team. Vitals/I&O/Wt Last Vital Signs Temp 97.7 F 11/10/24 04:00 Pulse 63 11/10/24 05:19 Resp 17 11/10/24 04:00 BP 130/71 11/10/24 04:00 Pulse Ox 97 11/10/24 04:00 O2 Del Method Room Air 11/10/24 04:00 11/09/24 11/10/24 11/10/24 22:59 06:59 14:59 Intake Total 296.833 / 1215.500 650.834 / 1866.334 Balance 296.833 / 1215.500 650.834 / 1866.334 Weight last 48 hrs Weight 146 lb 3.2 oz Weight 145 lb 12.8 oz Weight 143 lb Physical Exam 2 GI: OTHER: Abdomen is soft nontender nondistended. Bowel sounds are present Data 11/10/24 04:00 11/10/24 04:00 Micro: Microbiology 11/08/24 13:15 Blood Culture - Preliminary Blood NEGATIVE TO DATE 11/08/24 13:12 Blood Culture - Preliminary Blood NEGATIVE TO DATE A&P Assessment and plan (1) Small bowel obstruction: (2) Atrial fibrillation with RVR: Plan Excellent progression from the surgical standpoint, patient bowel obstruction appeared to have resolved as evidenced by multiple bowel movements as well as passing gas and improvement of abdominal pain and distention. Will start her on clear liquid diets and MiraLAX. If she is tolerating clears by lunch she can have GI soft diet and she will remain on that diet for discharge. Attestations 2 Medical Necessity Statement*: Per medical team Coding Level of Care Code Acute Code for g Fwd Diagnoses Small bowel obstruction K56.609 Atrial fibrillation with RVR I48.91
[2024-11-10] MEDS: phosphorus 250 mg Tablet PO (09:33)
[2024-11-10] MEDS: escitalopram 10 mg Tablet PO (09:33)
[2024-11-10] MEDS: multivitamin therapeutic Tablet 1 TAB PO (09:33)
[2024-11-10] MEDS: metoprolol tartrate 25 mg Tablet PO (09:33)
[2024-11-10] MEDS: levothyroxine 75 mcg Tablet PO (09:34)
[2024-11-10] MEDS: pantoprazole 40 mg SDV IVP ×2 (09:34→20:06)
[2024-11-10] MEDS: lisinopril 20 mg Tablet 40 MG PO (09:34)
[2024-11-10] MEDS: polyethylene glycol 3350 Pkt 17 gm PO ×2 (09:34→17:46)
[2024-11-10] MEDS: TRAMadol 50 mg Tablet PO ×2 (09:39→17:46)
--- NOTE | 2024-11-10 10:32 | P.PN_ITS ---
Subjective 2 Subjective: Reports feeling better today. Had several bowel movements overnight. Denies abdominal pain at this time. Is tolerating diet well. No other complaints. Medications: Reviewed: Yes Vitals/I&O/Wt Last Vital Signs Temp 97.9 F 11/10/24 08:00 Pulse 76 11/10/24 08:00 Resp 16 11/10/24 08:00 BP 155/78 11/10/24 08:00 Pulse Ox 95 11/10/24 08:00 O2 Del Method Room Air 11/10/24 08:00 11/09/24 11/10/24 11/10/24 22:59 06:59 14:59 Intake Total 296.833 / 1215.500 650.834 / 1866.334 Balance 296.833 / 1215.500 650.834 / 1866.334 Weight last 48 hrs Weight 146 lb 3.2 oz Weight 145 lb 12.8 oz Weight 143 lb Physical Exam 2 Narrative: General: Cooperative patient in no apparent distress. Well developed. HEENT: Normocephalic, Atraumatic. External ears normal. Nasal passages patent without drainage. MMM. Heart: RRR. Resp: LCTA. No respiratory distress, no use of accessory muscles. Abd: Soft, non-tender. Non-distended. Extremities: No edema. Skin: No rash or lesions on exposed areas. Neuro: No focal motor or sensory loss. Gait is normal. Data 11/10/24 04:00 11/10/24 04:00 Micro: Microbiology 11/08/24 13:15 Blood Culture - Preliminary Blood NEGATIVE TO DATE 11/08/24 13:12 Blood Culture - Preliminary Blood NEGATIVE TO DATE A&P Assessment and plan (1) Abdominal pain: (2) Leukocytosis: Leukocytosis, stress-induced and is improved today -Continue to monitor -UA and chest x-ray negative (3) Atrial fibrillation with RVR: (4) Essential (primary) hypertension: (5) Mixed hyperlipidemia: (6) Adult onset hypothyroidism: (7) Gastric reflux: (8) TIA (transient ischemic attack): Plan 79 y/o F admitted for SBO, with subsequent development of A-fib with RVR. Continue inpatient monitoring. Improvement in SBO. General Surgery is following. Tolerating diet well. Has advanced to soft GI diet. Afib controlled currently on metoprolol. On Lovenox for VTE PPx, and consider transition to Eliquis at discharge. Currently holding Plavix. Previous TIA and will need review prior to discharge. BP currently stable. Recheck am labs. Supportive cares for analgesia, emesis. Continue home medications for chronic medical Code Status: Full IVF: D51/2NS @ 65 DVT PPx: Lovenox GI PPx: Protonix ABx: NOne Diet: Liquid diet, advance as tolerated. Discharge plan: Home when able. Attestations 2 Medical Necessity Statement*: Patient requires inpatient care for management of small bowel obstruction, atrial fibrillation with RVR, and initiation of anticoagulation. Coding Level of Care Code Acute Code for Chg Fwd Moderate MDM includes number and complexity of problems actively addressed during encounter, amount and/or complexity of data reviewed/ordered and described risk of complication, morbidity or mortality of management as documented Diagnoses Abdominal pain R10.9 Leukocytosis D72.829 Atrial fibrillation with RVR I48.91 Essential (primary) hypertension I10 Mixed hyperlipidemia E78.2 Adult onset hypothyroidism E03.8 Gastric reflux K21.9 TIA (transient ischemic attack) G45.9
[2024-11-10] MEDS: acetaminophen 325 mg Tablet 650 MG PO ×2 (14:19→20:12)
[2024-11-10] MEDS: atorvastatin 40 mg Tablet 20 MG PO (20:06)
[2024-11-10] MEDS: enoxaparin 40 mg/0.4 mL Syringe SUBCUT (20:06)
[2024-11-10] MEDS: amlodipine 5 mg Tablet 2.5 MG PO (20:06)
--- NOTE | 2024-11-10 20:17 | PM.MISC ---
Miscellaneous Note Purpose of Documentation: Update on patient care Note: Evaluated patient tonight, has been eating passing gas having several bowel movements. Abdominal exam is completely benign. Will advance to GI soft diet, she will be cleared for discharge from surgical standpoint tomorrow
[2024-11-11] VITALS (7 sets, daily range): BP systolic 134–160; BP diastolic 66–83; PULSE 55–69; RESP 16–19; TEMP 36.3–36.8; O2SAT 94–97
--- NOTE | 2024-11-11 06:54 | P.PN_ITS ---
Subjective 2 Subjective: Excellent progression of SBO continues to pass gas and have bowel movements. No abdominal pain reported. Tolerating diet. Vitals/I&O/Wt Last Vital Signs Temp 98.0 F 11/11/24 04:00 Pulse 59 L 11/11/24 05:18 Resp 17 11/11/24 04:00 BP 134/83 11/11/24 04:00 Pulse Ox 95 11/11/24 04:00 O2 Del Method Room Air 11/11/24 04:00 11/10/24 11/10/24 11/11/24 14:59 22:59 06:59 Intake Total 360 / 360 1242.917 / 1602.917 600 / 2202.917 Balance 360 / 360 1242.917 / 1602.917 600 / 2202.917 Weight last 48 hrs Weight 146 lb 3.2 oz Weight 146 lb 3.2 oz Physical Exam 2 GI: OTHER: Abdomen is soft nontender nondistended. Data 11/10/24 04:00 11/10/24 04:00 A&P Assessment and plan (1) Abdominal pain: (2) Small bowel obstruction: Plan Patient show excellent progression of SBO, passing gas and having multiple bowel movements. Patient can be discharged home on a GI soft diet. Please continue once a day MiraLAX in the outpatient setting, she can follow-up with me in 2 weeks. Patient shows understanding agrees with the plan Attestations 2 Medical Necessity Statement*: per medical team Coding Level of Care Code Acute Code for Chg Fwd Diagnoses Abdominal pain R10.9 Small bowel obstruction K56.609
[2024-11-11 08:52] LABS: Basophils % 0.4 %; Eosinophils # 0.3 10^3/uL (0.0-0.8); Eosinophils % 3.6 %; Hematocrit 36.1 % (36-47); Lymphocytes # 1.3 10^3/uL (0.8-4.8); Lymphocytes % 18.1 %; Mean Corpuscular HGB Conc 31.6 g/dL (30-55); Mean Corpuscular Hemoglobin 30.9 pg (27-33); Mean Corpuscular Volume 97.8 fl (85-98); Mean Platelet Volume 11.1 fL (7.4-10.4); Monocytes # 0.7 10^3/uL (0.2-0.9); Monocytes % 9.6 %; Neutrophils # 4.73 10^3/uL (1.8-7.7); Nucleated Red Blood Cells % 0 %; Platelet Count 277 10^3/cmm (157-399); Red Blood Count 3.69 10^6/uL (3.85-5.65); Red Cell Distribution Width 13.6 % (12.1-15.1); White Blood Count 6.96 10^3/uL (3.29-11.43)
[2024-11-11 09:23] LABS: Alanine Aminotransferase 9 U/L (0-33); Albumin Level 3.6 g/dL (3.5-5.2); Alkaline Phosphatase 64 U/L (35-105); Aspartate Amino Transferase 18 U/L (0-32); Blood Urea Nitrogen 5 mg/dL (8-23); Calcium 8.8 mg/dL (8.5-10.5); Carbon Dioxide 22 mmol/L (22-29); Chloride 106 mmol/L (98-107); Globulin 2.3 g/dL (1.3-4.6); Glucose 122 mg/dL (65-115); Osmolality Calculated 291 mOsm/kg (285-295); Sodium 141 mmol/L (136-145); Total Bilirubin 0.4 mg/dL (0.15-1.2); Total Protein 5.9 g/dL (6.6-8.7)
[2024-11-11 09:24] LABS: Anion Gap 16.6 (5-19); Potassium 3.6 mmol/L (3.5-5.1)
[2024-11-11] MEDS: escitalopram 10 mg Tablet PO (09:50)
[2024-11-11] MEDS: pantoprazole 40 mg SDV IVP (09:50)
[2024-11-11] MEDS: lisinopril 20 mg Tablet 40 MG PO (09:50)
[2024-11-11] MEDS: multivitamin therapeutic Tablet 1 TAB PO (09:50)
[2024-11-11] MEDS: polyethylene glycol 3350 Pkt 17 gm PO (09:50)
[2024-11-11] MEDS: levothyroxine 75 mcg Tablet PO (09:50)
[2024-11-11] MEDS: metoprolol tartrate 25 mg Tablet PO (09:50)
[2024-11-11] MEDS: TRAMadol 50 mg Tablet PO (09:52)
--- NOTE | 2024-11-11 13:18 | P.DS_ITS ---
Discharge Providers Date of Admission: 11/08/24 20:10 Date of Discharge: November 11, 2024 Attending Provider at Admission: Quincy Lockhart MD Attending Provider at Discharge: Reymundo Trejo MD Consults: Surgery: Dr. Jovon Macedo Primary Care Provider: RUEL Lugo Diagnoses at Discharge Discharge Diagnosis (1) Abdominal pain: Status: Acute (2) Small bowel obstruction: Status: Acute Reason for Visit Reason for Visit: ABD PAIN Brief History: History as per HPI: Beryl Juárez is a 79 year old female with a past medical history significant for breast cancer, GERD, hyperlipidemia, non-Hodgkin's lymphoma, hysterectomy with BSO, open cholecystectomy, appendectomy, and multiple other comorbidities who presents to the emergency department via EMS with severe abdominal pain associated with nausea and vomiting. She reports onset yesterday evening. She describes the pain as being in her lower quadrants. She reports nausea with multiple severe episodes of emesis today. Oral intake worsens symptoms. Analgesics and antiemetics given in ER improved her symptoms. She does endorse history of prior small bowel obstructions managed medically. She does have a history of prior intra-abdominal surgeries. Family is bedside and very supportive. In the emergency department, labs revealed leukocytosis to 20.25. CT abdomen pelvis revealed multiple distended borderline dilated fluid-filled loops of small bowel in the distal jejunum and proximal ileum without single abrupt transition points concerning for small bowel obstruction versus ileus. Hospital Course Hospital Course Patient was admitted to the hospital further evaluation and management of small bowel obstruction. Surgery was consulted and she was started on conservative treatment with NG tube placement and IV hydration. During hospitalization she did have episode of atrial fibrillation which was treated with IV metoprolol. Echocardiogram was done though the results are still pending. Patient responded well to the treatment and has been tolerating mechanical soft diet for now. She has been discharged in hemodynamically stable condition with advised to follow- up with surgical team in 2 weeks, her primary care provider within next 1 week. Given atrial fibrillation during hospitalization anticoagulation were discussed in detail with her and she was started on Eliquis for stroke prevention. Physical Exam Narrative: General: Cooperative patient in no apparent distress. Well developed. HEENT: Normocephalic, Atraumatic. External ears normal. Nasal passages patent without drainage. MMM. Heart: RRR. Resp: LCTA. No respiratory distress, no use of accessory muscles. Abd: Soft, non-tender. Non-distended. Extremities: No edema. Skin: No rash or lesions on exposed areas. Neuro: No focal motor or sensory loss. Gait is normal. Discharge Data Studies Completed and Pending Completed Studies During Hospitalization Category Date Time Status CT abdomen pelvis w con* [id number] Stat Cat Scan 11/08/24 16:15 Completed XR chest 1V portable [id number] Stat Exams 11/08/24 20:42 Completed Pending at discharge Category Date Time Status Blood Culture Stat Lab 11/08/24 13:15 Results CV. echo complete* [id number] Routine Ultrasound 11/09/24 11:46 Taken Radiology Impressions Abdomen/Pelvis CT 11/08/24 16:15 IMPRESSION: Multiple distended and borderline dilated fluid-filled loops of small bowel in the distal jejunum and proximal ileum with no single abrupt transition point. There is fluid and air within the proximal colon. The terminal, distal and mid ileum are decompressed. Findings can be seen in the setting of early partial small bowel obstruction versus ileus. COMMENTS: Consistent with the [employer]'s Incidental Findings Committee white paper (J Am Sam Radiol 2018): Any incidental renal lesion less than 1 cm or classified as too small to characterize, or any incidental cystic renal lesion characterized as simple-appearing, is likely benign. No follow-up imaging is recommended for these lesions per consensus recommendations based on imaging criteria. ADDENDUM: 11/08/24 0561 THIS REPORT CONTAINS FINDINGS THAT MAY BE CRITICAL TO PATIENT CARE. The findings were verbally communicated via telephone conference with KUNAL Jiménez at 6:20 PM [employer] DEVELOPER on 11/08/2024. The findings were acknowledged and understood. Chest X-Ray 11/08/24 20:42 IMPRESSION: The NG tube tracks into the stomach. Laboratory Results WBC 6.96 10^3/uL (3.29-11.43) 11/11/24 08:35 RBC 3.69 10^6/uL (3.85-5.65) L 11/11/24 08:35 Hgb 11.40 g/dL (11.27-16.99) 11/11/24 08:35 Hct 36.1 % (36-47) 11/11/24 08:35 MCV 97.8 fl (85-98) 11/11/24 08:35 MCH 30.9 pg (27-33) 11/11/24 08:35 MCHC 31.6 g/dL (30-55) 11/11/24 08:35 RDW 13.6 % (12.1-15.1) 11/11/24 08:35 Plt Count 277 10^3/cmm (157-399) 11/11/24 08:35 MPV 11.1 fL (7.4-10.4) H 11/11/24 08:35 Neut % (Auto) 68.0 % 11/11/24 08:35 Lymph % (Auto) 18.1 % 11/11/24 08:35 [place] % (Auto) 9.6 % 11/11/24 08:35 Eos % (Auto) 3.6 % 11/11/24 08:35 Baso % (Auto) 0.4 % 11/11/24 08:35 Neut # (Auto) 4.73 10^3/uL (1.8-7.7) 11/11/24 08:35 Lymph # (Auto) 1.3 10^3/uL (0.8-4.8) 11/11/24 08:35 [place] # (Auto) 0.7 10^3/uL (0.2-0.9) 11/11/24 08:35 Eos # (Auto) 0.3 10^3/uL (0.0-0.8) 11/11/24 08:35 Baso # (Auto) 0.0 10^3/uL (0.0-0.1) 11/11/24 08:35 Nucleated RBC % (auto) 0 % 11/11/24 08:35 Total Counted 100 (0-100) 11/10/24 04:00 Atypical Lymphs % 2.0 % (0-5) 11/10/24 04:00 Absolute Neutrophils 6.9 10^3/cmm (1.4-6.5) H 11/10/24 04:00 Segmented Neutrophils 73 % 11/10/24 04:00 Band Neutrophils 0.0 % 11/10/24 04:00 Absolute Lymphocytes 1.6 10^3/cmm (1.2-3.4) 11/10/24 04:00 Lymphocytes (Manual) 15 % 11/10/24 04:00 Monocytes (Manual) 9.0 % 11/10/24 04:00 Absolute Monocytes 0.8 10^3/cmm (0.1-0.6) H 11/10/24 04:00 Eosinophils (Manual) 1 % 11/10/24 04:00 Absolute Eosinophils 0.1 10^3/cmm (0.0-0.7) 11/10/24 04:00 Basophils (Manual) 0.0 % 11/10/24 04:00 Absolute Basophils 0.0 10^3/cmm (0.0-0.2) 11/10/24 04:00 Nucleated RBCs # 0.0 /100WBC 11/11/24 08:35 Platelet Estimate Normal (Normal) 11/10/24 04:00 Sodium 141 mmol/L (136-145) 11/11/24 08:35 Potassium 3.6 mmol/L (3.5-5.1) 11/11/24 08:35 Chloride 106 mmol/L (98-107) 11/11/24 08:35 Carbon Dioxide 22 mmol/L (22-29) 11/11/24 08:35 Anion Gap 16.6 (5-19) 11/11/24 08:35 BUN 5 mg/dL (8-23) L 11/11/24 08:35 Creatinine 0.6 mg/dL (0.5-0.9) 11/11/24 08:35 GFR Calculation Not Reportable 11/11/24 08:35 Glucose 122 mg/dL (65-115) H 11/11/24 08:35 Calculated Osmolality 291 mOsm/kg (285-295) 11/11/24 08:35 Lactic Acid 1.8 mmol/L (0.5-2.2) 11/08/24 13:12 Calcium 8.8 mg/dL (8.5-10.5) 11/11/24 08:35 Phosphorus 2.4 mg/dL (2.5-4.5) L 11/10/24 04:00 Magnesium 2.4 mg/dL (1.7-2.3) H 11/09/24 03:20 Total Bilirubin 0.4 mg/dL (0.15-1.2) 11/11/24 08:35 AST 18 U/L (0-32) 11/11/24 08:35 ALT 9 U/L (0-33) 11/11/24 08:35 Alkaline Phosphatase 64 U/L (35-105) 11/11/24 08:35 Troponin T 5th Gen ng/L 19 ng/L (0-10) H 11/09/24 19:20 C-Reactive Protein 3.0 mg/L (0.0-4.9) 11/08/24 13:12 C-Reactive Protein 3.0 mg/L (0.0-4.9) 11/08/24 13:12 Total Protein 5.9 g/dL (6.6-8.7) L 11/11/24 08:35 Albumin 3.6 g/dL (3.5-5.2) 11/11/24 08:35 Globulin 2.3 g/dL (1.3-4.6) 11/11/24 08:35 Lipase 20 U/L (13-60) 11/08/24 13:12 Procalcitonin 0.08 ng/mL (0-0.5) 11/08/24 13:12 TSH 1.48 uIU/mL (0.27-4.20) 11/09/24 12:26 Urine Color Yellow (Yellow) 11/08/24 18:30 Urine Appearance Clear (CLEAR) 11/08/24 18:30 Urine pH 7.0 (5-7) 11/08/24 18:30 Ur Specific [place] 1.074 (1.005-1.030) H 11/08/24 18:30 Urine Protein 2+ (Negative) A 11/08/24 18:30 Urine Glucose (UA) Negative (Normal) 11/08/24 18:30 Urine Ketones Trace (Negative) 11/08/24 18:30 Urine Blood Negative (Negative) 11/08/24 18:30 Urine Nitrate Negative (Negative) 11/08/24 18:30 Urine Bilirubin Negative (Negative) 11/08/24 18:30 Urine Urobilinogen 0.2 mg/dL (Negative) 11/08/24 18:30 Ur Leukocyte Esterase Negative (Negative) 11/08/24 18:30 Urine RBC 3-5 /hpf (0-2) 11/08/24 18:30 Urine WBC 0-5 /hpf (0-5) 11/08/24 18:30 Ur Squamous Epith Cells 0-5 /hpf (0-5) 11/08/24 18:30 Amorphous Sediment Not Reportable 11/08/24 18:30 Urine Bacteria None seen /hpf (NONE) 11/08/24 18:30 Hyaline Casts 0.40 /lpf 11/08/24 18:30 Vitals Last Vital Signs Temp 98.3 F 11/11/24 11:36 Pulse 55 L 11/11/24 11:36 Resp 18 11/11/24 11:36 BP 150/66 11/11/24 11:36 Pulse Ox 97 11/11/24 11:36 O2 Del Method Room Air 11/11/24 11:36 Discharge Plan Discharge Condition: Stable Prescriptions: New Eliquis 5 mg tablet 5 mg PO BID Qty: 60 4RF metoprolol tartrate 25 mg Tablet 12.5 mg PO BID 30 Days Qty: 30 0RF polyethylene glycol 3350 [Miralax] 17 gram powder in packet 17 g PO DAILY Qty: 30 0RF Continued multivitamin [Daily Multi-Vitamin] Tablet 1 tab PO DAILY alendronate [Fosamax] 70 mg tablet 70 mg PO .weekly Qty: 4 2RF calcium carbonate-vitamin D3 [Os-Denys 500 + D3] 500 mg-15 mcg (600 unit) tablet 1 tab PO .2 times day Qty: 60 2RF cholecalciferol (vitamin D3) 125 mcg (5,000 unit) capsule 125 mcg PO DAILY Qty: 30 2RF clopidogrel 75 mg tablet 75 mg PO DAILY Qty: 30 2RF Hold Instructions: Resume on 11/12/22. Do not take Plavix morning or Monday morning and may resume Monday morning. escitalopram oxalate [Lexapro] 10 mg tablet 10 mg PO DAILY Qty: 30 2RF famotidine 20 mg tablet 20 mg PO .HS PRN (Reason: acid reflux) Qty: 30 2RF icosapent ethyl [Vascepa] 1 gram capsule See Rx Instructions .ROUTE .COMPLEX Qty: 120 2RF Dose Instruction: TAKE TWO CAPSULES BY MOUTH TWICE DAILY Rx Instructions: TAKE TWO CAPSULES BY MOUTH TWICE DAILY levothyroxine 75 mcg tablet 75 mcg PO DAILY Qty: 30 2RF lisinopril 40 mg tablet 40 mg PO DAILY Qty: 30 2RF rosuvastatin [Crestor] 40 mg tablet 40 mg PO DAILY Qty: 30 2RF tramadol 50 mg tablet 50 mg PO BID PRN (Reason: pain) Qty: 60 2RF letrozole 2.5 mg tablet See Rx Instructions .ROUTE .COMPLEX Qty: 90 1RF Dose Instruction: TAKE ONE TABLET BY MOUTH DAILY Rx Instructions: TAKE ONE TABLET BY MOUTH DAILY Discontinued amlodipine [Norvasc] 2.5 mg tablet 2.5 mg PO .at bedtime for BP Qty: 30 2RF Hold Instructions: Monitor Blood Pressure Discharge Orders: Discharge Order (Routine); Ordered 11/11/24 Ordered By: Reymundo Trejo Referrals: Christel Gay, [employer]ID[employer] ENGINEER[employer] [Primary Care Provider] - 7-10 days Stevo Ram MD [Physician] - 2 weeks Discharge Diet: Advance as tolerated and GI Soft Discharge Activity: Resume usual activity and Increase activity as tolerated Patient Instructions: Opioid Safety Activity Restrictions/Additional Instructions: Take multiple small meals going forward. Take GI soft diet for next 1 week and advance to regular diet within next 1 week. Check your blood pressure daily at home maintain blood pressure diary. Eliquis is the blood thinner which you will be on going forward 5 mg morning and evening. Do not take amlodipine anymore. Instead metoprolol 12.5 mg twice daily has been added to your medication list. Discharge Attestations Time Spent in Discharge Care*: greater than 30 min Specific Discharge Activities: educating patient, discussing with pcp/other providers, discussing with behavioral health case manager/social workers/dc planners, documenting/other paperwork and evaluating patient/reviewing data Status at Discharge: Cognitive status at discharge: cognitively intact , Behavioral status at discharge: cooperative , Functional status at discharge: independent ambulation , Overall status at discharge: patient is back to baseline Quality Metrics Clinical Quality Measures [ No reported AMI, CVA or VTE this stay] Coding Level of Care Code 64268 Total time (in minutes) for Discharge: 60 Diagnoses Abdominal pain R10.9 Small bowel obstruction K56.609
== END 2024-11-11 16:18 | disposition home or self-care (01) | DRG 389 ==
LOC: ER 20:52 → MEDSURG 21:09
PROVIDERS: Family Medicine; Student in an Organized Health Care Education/Training Program; Admitting Provider Internal Medicine; Emergency Provider Emergency Medicine; PCP Nurse Practitioner; Visit Provider Student in an Organized Health Care Education/Training Program
DX: K56.600 Partial intestinal obstruction, unspecified as to cause (principal); C85.9A Non-Hodgkin lymphoma, unspecified, in remission; K21.9 Gastro-esophageal reflux disease without esophagitis; E78.2 Mixed hyperlipidemia; I48.91 Unspecified atrial fibrillation; I10 Essential (primary) hypertension; E03.9 Hypothyroidism, unspecified; F41.8 Other specified anxiety disorders; D72.828 Other elevated white blood cell count; Z85.3 Personal history of malignant neoplasm of breast; Z86.73 Personal history of transient ischemic attack (TIA), and cerebral infarction without residual deficits; Z92.21 Personal history of antineoplastic chemotherapy; Z92.3 Personal history of irradiation; Z79.02 Long term (current) use of antithrombotics/antiplatelets
CPT/HCPCS: 36415; 71045; 74177; 77062; 80053; 80069; 81001; 83605; 83690; 83735; 84100; 84145; 84443; 84484; 85007; 85025; 85027; 86140; 87040; 93005; 93306; 96361; 96372; 96374; 96375; 99285; G0279; J1171; J1650; J2060; J2405; J2470; J3490; J7030; J7799

== ENCOUNTER → 2024-11-27 09:16 | Outpatient (BNVA) | payer MEDICARE, MEDICAID, SELFPAY | PROVIDERS: PCP Nurse Practitioner; Referring Provider Nurse Practitioner; Visit Provider Surgery | DX: K56.609 Unspecified intestinal obstruction, unspecified as to partial versus complete obstruction (principal) | CPT/HCPCS: 99213 ==

== ENCOUNTER → 2024-12-09 09:15 | Outpatient (BNVA) | payer MEDICARE, MEDICAID, SELFPAY | PROVIDERS: PCP Nurse Practitioner; Visit Provider Nurse Practitioner | DX: I10 Essential (primary) hypertension (principal); G45.9 Transient cerebral ischemic attack, unspecified; E78.2 Mixed hyperlipidemia; R73.9 Hyperglycemia, unspecified | CPT/HCPCS: 80053; 80061; 83036; 84443 ==

== ENCOUNTER → 2025-02-18 11:05 | Outpatient (BNVA) | payer MEDICARE, MEDICAID, SELFPAY | PROVIDERS: PCP Nurse Practitioner; Visit Provider Internal Medicine Cardiovascular Disease | DX: R07.9 Chest pain, unspecified (principal) | CPT/HCPCS: 93005 ==

== ENCOUNTER → 2025-02-24 09:21 | Outpatient (BNVA) | payer MEDICARE, MEDICAID, SELFPAY | PROVIDERS: PCP Nurse Practitioner; Visit Provider Nurse Practitioner Family | DX: Z85.3 Personal history of malignant neoplasm of breast (principal) | CPT/HCPCS: 80053; 85025 ==

== ENCOUNTER 2025-02-28 10:24 | Oncology outpatient (recurring) (ONCR) | payer MEDICARE, MEDICAID, SELFPAY | END 2025-03-22 23:59 | disposition home or self-care (01) | PROVIDERS: PCP Nurse Practitioner; Visit Provider Internal Medicine | DX: C50.411 Malignant neoplasm of upper-outer quadrant of right female breast (principal); Z17.0 Estrogen receptor positive status [ER+]; Z85.72 Personal history of non-Hodgkin lymphomas; R03.0 Elevated blood-pressure reading, without diagnosis of hypertension; Z79.811 Long term (current) use of aromatase inhibitors; Z79.899 Other long term (current) drug therapy | CPT/HCPCS: 99214 ==

== ENCOUNTER 2025-04-09 12:48 | Oncology outpatient (recurring) (ONCR) | payer MEDICARE, MEDICAID, SELFPAY ==
--- NOTE | 2025-04-09 13:00 | XR_ITS ---
WS: [id number] SCREENING DEXA SCAN [employer] CLINICAL INFORMATION: AI use; post menopausal COMPARISON: 2022 FINDINGS: The L1-L4 bone mineral density measures 0.942 g/cm2. This corresponds to a T score score of -2.0 and Z score of -0.1. Left femoral neck bone mineral density measures 0.662 g/cm2. This corresponds to a T score of -2.7 and Z score of -0.7. Right femoral neck bone mineral density measures 0.671 g/cm2. This corresponds to a T score -2.7of and Z score of -0.7. Mean femoral neck bone mineral density measures 0.666 g/cm2. This corresponds to a T score of -2.7 and Z score of -0.7. XR/XR DEXA axial skeleton* [id number] IMPRESSION: Osteopenia lumbar spine. Osteoporosis femoral necks. Patient's FRAX calculated 10 year probability for major osteoporotic fracture i s 24.4% and osteoporotic hip fracture is 9.9%. Bone mineral density lumbar spine increased 4.8% Bone mineral density femoral necks increased 0.9%
== END 2025-04-21 23:59 | disposition home or self-care (01) ==
PROVIDERS: PCP Nurse Practitioner; Visit Provider Nurse Practitioner Family
DX: Z79.811 Long term (current) use of aromatase inhibitors (principal); Z85.3 Personal history of malignant neoplasm of breast; M85.88 Other specified disorders of bone density and structure, other site; M81.0 Age-related osteoporosis without current pathological fracture
CPT/HCPCS: 77080

== ENCOUNTER → 2025-05-26 09:48 | Outpatient (BNVA) | payer MEDICARE, MEDICAID, SELFPAY | PROVIDERS: PCP Nurse Practitioner; Visit Provider Nurse Practitioner | DX: E03.8 Other specified hypothyroidism (principal); E78.2 Mixed hyperlipidemia; I10 Essential (primary) hypertension; G45.9 Transient cerebral ischemic attack, unspecified | CPT/HCPCS: 80053; 80061; 84443; 85025 ==

== ENCOUNTER 2025-07-07 16:55 | Inpatient (IN) | payer MEDICARE, MEDICAID, SELFPAY ==
--- OUTSIDE RECORDS SUMMARY | 2007-03-01 19:00 | XMS_ITS | Continuity of Care Document ---
Author Organization [facility] Address [address] [id number] [address] Phone Care Team Providers Care Service Support Representative Name Role Phone Unavailable Unavailable Unavailable Medications Medication Instructions Dosage Effective Dates (start - stop) Status Comments CARTIA XT (unknown strength) SI ERC orally once a day Not Available - Active hydrochlorothiazide 25 mg Tab SI TAB orally once a day - Active Procedures Procedure Date EST-PROB FOC/STR FORWARD Advance Directives Directive Yes / No Effective Date File Name No Information Encounters Encounter Description Practice Location Reason(s) For Visit Diagnoses Date Provider Providers Copied on Encounter [facility], [id number]- [place], [place], [id number], [place] tel:[phone] Family Medicine F1 No Information 7 No Information [facility], [id number]- [place], [id number], [place] tel:[phone] Family Medicine F1 No Information 6 No Information EST-PROB FOC/STR FORWARD [facility], [id number]- [place], [id number], [place] tel:[phone] Family Medicine F1 Lipoma of other skin and subcutaneous tissue 6 No Information [facility], [id number]- [facility] [place], [id number], [place] tel:[phone] Family Medicine F1 Allergic rhinitis, cause unspecifiedPain in joint involving lower leg No Information [facility], [id number]- [facility], [facility] [place], [id number], [place] tel:[phone] Family Medicine F1 Other chest pain 5 No Information [facility], [id number]- [facility], [facility] [place], [id number], [place] tel:[phone] Family Medicine F1 Unspecified essential hypertension No Information Family History Family Member Type Diagnosis Age At Onset No Information Payers Payer name Insurance type Covered alliance party ID Authoriza tion(s) No Information Social History Type Description Quantity Date Captured Comments Sex Female Smoking Status No Information Chief Complaint And Reason For Visit No Information Reason For Referral Reason For Referral No Information History Of Present Illness Encounter Date Complaint History Of Prese nt Illness No Information Functional Status Date Functional Assessmen t No Information Instructions Date Instruction Additional Infor mation No Information Assessments Type Assessment Date No Information Patient Care Teams Name Effective Dates (start - stop) Status Members No Information
[2025-07-07] VITALS (26 sets, daily range): BP systolic 115–143; BP diastolic 65–108; PULSE 85–140; RESP 15–26; TEMP 36.8–37.1; O2SAT 80–100; BMI 28.8; BMI 28.7
--- NOTE | 2025-07-07 16:57 | ECG_ITS ---
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 Measurements Intervals [place] Rate: 78 P: 0 [place]: 0 QRS: 76 QRSD: 128 T: 68 QT: 409 QTc: 468 Interpretive Statements ATRIAL FLUTTER/TACHYCARDIA RIGHT BUNDLE BRANCH BLOCK [120+ ms QRS DURATION, UPRIGHT V1, 40+ ms S IN I/aVL/V4/V5/V6] Compared to ECG 02/18/2025 11:11:59 Right bundle-branch block now present Sinus rhythm no longer present Sinus arrhythmia no longer present Incomplete right bundle-branch block no longer present T-wave abnormality no longer present Electronically Signed On 07-08-2025 07:58:48 CDT by Tor Hdz M.D. [email or web address]
--- NOTE | 2025-07-07 17:06 | XRR_ITS ---
PROCEDURE INFORMATION: Exam: XR Chest Exam date and time: 07/07/2025 5:11 PM Age: 79 years old Clinical indication: Shortness of breath; Prior surgery; Surgery date: 6+ months; Surgery type: Breast, gallbladder; Additional info: Palpitations/sob TECHNIQUE: Imaging protocol: Radiologic exam of the chest. Views: 1 view. COMPARISON: CR XR chest 1V portable [id number] 11/08/2024 8:43 PM FINDINGS: Tubes, catheters and devices: Metallic leads and metallic buttons overlie the chest and abdomen. Surgical clips again noted over the left breast. Lungs: Lungs are clear. Pleural spaces: The pleural spaces are clear. Heart/Mediastinum: The heart remains enlarged. Mediastinal size is. Bones/joints: Unremarkable. XR/XR chest 1V portable [id number] IMPRESSION: 1. Cardiomegaly. 2. No acute disease in the chest.
--- NOTE | 2025-07-07 17:16 | ED_ITS ---
HPI - Arrhythmia/Palpitations 2 General: Chief Complaint: Arrhythmia/Palpitations Stated Complaint: afib with rvr Time Seen by Provider: 07/07/25 17:04 Source: patient, EMS and old records reviewed Mode of arrival: EMS Limitations: no limitations History of Present Illness: Patient is a 79-year-old female with past medical history of atrial fibrillation on apixaban, Plavix, and metoprolol who presents to the emergency department by ambulance due to A-fib with RVR. EMS was called by family, on their arrival found the patient to be in the 160s with her heart rate, she was given 15 mg Cardizem and on arrival her heart rate is 70-90, and persistent a flutter. States that she was diagnosed 6 months ago with atrial fibrillation, coagulant dipper is Dr. Narayanan. She reports the feeling of palpitations earlier, as well as feeling short of breath, however is asymptomatic at this time. Oxygenating well on room air, she was placed on 2 L nasal cannula for comfort prehospital. She denies any personal history of stroke or heart attack. No weakness, headache, or recent illness. MD complaint: palpitations Onset (ago): hour(s) Duration: now resolved Severity: similar to previous episodes Context: occurred during rest Arrhythmia history: atrial fibrillation and on anti-coagulants Associated symptoms: Deny nausea or vomiting Treatments prior to arrival: calcium channel fany Related Data Home Medications ?Medication ?Instructions ?Recorded ?Confirmed multivitamin (Daily Multi-Vitamin 1 tab PO DAILY 01/2707/08/25 tablet) Previous Rx's ?Medication ?Instructions ?Recorded letrozole 2.5 mg tablet See Rx Instructions .Route 0 02/03/25 .COMPLEX #90 tabs valsartan 160 mg tablet 160 mg PO QAM #90 tabs 02/18 valsartan 80 mg tablet 80 mg PO DAILY PRN hypertens ion 03/26/25 #30 tabs apixaban 5 mg tablet (Eliquis) 5 mg PO BID #180 tabs 0 04/08/25 alendronate 70 mg tablet (Fosamax) 70 mg PO .weekly #4 tabs 05/28/25 calcium 500 mg (as 1 tab PO .2 times day #60 ta bs 05/28/25 carbonate)-vitamin D3 15 mcg (600 unit) tablet (Os-Denys 500 + D3) cholecalciferol (vitamin D3) 125 125 mcg PO DAILY #30 caps 05/28/25 mcg (5,000 unit) capsule clopidogrel 75 mg tablet 75 mg PO DAILY #30 tabs 0804/16 escitalopram oxalate 10 mg tablet 10 mg PO DAILY #30 t abs 05/28/25 (Lexapro) famotidine 20 mg tablet 20 mg PO .HS PRN acid reflux #30 05/28/25 tabs icosapent ethyl 1 gram capsule See Rx Instructions .Ro platinum 05/28/25 (Vascepa) .COMPLEX #120 caps levothyroxine 100 mcg tablet 100 mcg PO DAILY #30 tabs 05/28/25 (Levoxyl) metoprolol tartrate 25 mg tablet 12.5 mg (1/2 x 25 mg) PO BID 30 05/28/25 days #30 tabs polyethylene glycol 3350 17 17 g PO DAILY #510 grams 0 05/28/25 gram/dose oral powder rosuvastatin 20 mg tablet (Crestor) 20 mg PO DAILY #30 tabs 05/28/25 tramadol 50 mg tablet 50 mg PO BID PRN pain #60 ta bs 05/28/25 Allergies Allergy/AdvReac Type Severity Reaction Status Date / Time nitrofurantoin (From Allergy ALGY-Rash Verified 07/07/25 14:49 Macrobid) Opioids - Morphine Analogues AdvReac other Verified 07/07/25 14:49 Review of Systems 2 General: Reports: 10 or more systems reviewed and unremarkable except in HPI and below Const: Denies: fever(s), chills or fatigue Eyes: Denies: change in vision ENMT: Denies: throat pain, ear or mastoid pain or nasal discharge Card: Reports: palpitations; Denies: chest pain, swelling of feet/ankles or lightheadedness Resp: Reports: dyspnea; Denies: productive cough or wheezing GI: Denies: abdominal pain, nausea, vomiting, diarrhea or constipation : Denies: flank pain, difficulty voiding, dysuria or urinary frequency Musc: Denies: neck pain, back pain or joint pain Skin/Breast: Denies: rash Neuro: Denies: headache(s), numbness in extremities or weakness in extremities PFSH ED 2 PFSH: Medical History Vitamin D deficiency Constipation, slow transit Lung nodule Breast cancer Situational anxiety Gastric reflux Mixed hyperlipidemia Age related osteoporosis Osteoarthritis TIA (transient ischemic attack) Environmental and seasonal allergies Essential (primary) hypertension Non-Hodgkin lymphoma in remission 1997 with chemo and radiation History of left breast cancer Surgical History History of cataract extraction July 2023 History of right breast biopsy Fibrocystic breast 1983 History of tonsillectomy History of hysterectomy with BSO History of cholecystectomy History of appendectomy History of lumpectomy of left breast 2019 [place] Family History Other Cancer Dementia Hypertension Stroke Denies family history of Diabetes Clotting disorder Anesthesia complication Bleeding disorder Social History (Updated 07/07/25 @ 20:32 by Michael Banda MD) Smoking and tobacco/nicotine status: never used tobacco/nicotine Second hand smoke exposure: No Alcohol intake: former Former alcohol use details: Minimal i.e. 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, 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 Pets and animals: Yes Pets & animals: cat(s) Do you think of yourself as: Straight/Heterosexual Current gender identity: Female Physical Exam 2 Const: COMMON NORMALS: no acute distress, patient oriented x3 and no limitations GENERAL APPEARANCE: cooperative, comfortable and well developed ORIENTATION/CONSCIOUSNESS: Yes awake, Yes oriented to person, Yes oriented to place and Yes oriented to time OTHER: Nontoxic-appearing HENMT: COMMON NORMALS: normocephalic, atraumatic and hearing grossly normal bilaterally HEAD & SCALP: normocephalic and atraumatic Eye: COMMON NORMALS: Equal, round and reactive pupils present, EOMs intact bilaterally and conjunctivae normal CONJUNCTIVA: Yes conjunctivae normal P UPIL: Yes Equal, round and reactive pupils present Neck/C-Spine: COMMON NORMALS: full ROM, supple and no JVD Resp: COMMON NORMALS: normal respiratory effort, No retractions, No use of accessory muscles and clear to auscultation bilaterally AUSCULTATION: clear to auscultation bilaterally Cardio: COMMON NORMALS: no JVD, regular rate, No clicks present (Cardio), No murmurs present (Cardio) and No rub (Cardio) RATE: regular rate RHYTHM: a bnormal rhythm regularly irregular GI: COMMON NORMALS: Normal to inspection, nondistended, normoactive bowel sounds present, Soft to palpation and non-tender AUSCULTATION: Yes normoactive bowel sounds PALPATION: Yes Soft to palpation RECTAL EXAM: d eferred Extremity: COMMON NORMALS: normal to inspection, full ROM and capillary refill normal Neuro: COMMON NORMALS: patient oriented x3, CN's II-XII intact bilaterally, moves all extremities, no focal motor deficits and no sensory deficits noted SENSORIUM/ORIENTATION: Yes oriented to person, Yes oriented to place and Yes oriented to time Skin: COMMON NORMALS: no rashes or lesions noted GENERAL SKIN EXAM: no rashes or lesions noted Course 2 Vital Signs: Vital signs: Vital Signs Temperature 97.4 F L 07/08/25 12:00 Pulse Rate 48 L 07/08/25 12:00 Respiratory Rate 15 07/08/25 12:00 Blood Pressure 83/51 07/08/25 12:00 Pulse Oximetry 100 07/08/25 12:00 Oxygen Delivery Me thod Room Air 07/08/25 12:00 MDM - Arrhythmia/Palpitations Medical Decision Making This patient presenting to the emergency department by ambulance due to A-fib RVR, recently diagnosed earlier this year and has been on anticoagulation and rate control medications. She was given 50 mg Cardizem by EMS prehospital, and rate was controlled on her initial arrival but slowly started to creep up into the 140s and 160s, as she has remained in a flutter and in times atrial fibrillation on the monitor. However she is not having any chest pain, just notes the palpitations from her heart rate and some mild shortness of breath. With her lab work, hemoglobin is trending downwards is 8.4 today down from 9 last month, she has a history of cancer but denies any history of bright red blood per rectum or black or tarry stools or hemoptysis/hematemesis. Chest x- ray showing cardiomegaly, and BNP is elevated indicating signs of acute heart failure. However she did not seem fluid overloaded by exam. Her delta troponin was unremarkable, thyroid level normal. She is started on the drip after heart rate noted to become A-fib RVR and I spoke with Dr. Hdz, cardiology, who states he will consult the patient admitted to the hospital. Spoke to Dr. Hoyt, excepting the patient to ICU for cardioversion/telemetry Dr. Neil is informed of this patient and will put in admit orders. Lab Data 07/08/25 03:44 07/08/25 03:44 Radiology Impressions Chest X-Ray 07/07/25 17:06 IMPRESSION: 1. Cardiomegaly. 2. No acute disease in the chest. Laboratory Results WBC 8.46 10^3/uL (3.29-11.43) 07/07/25 17:41 RBC 3.14 10^6/uL (3.85-5.65) L 07/07/25 17:41 Hgb 8.40 g/dL (11.27-16.99) L 07/07/25 17:41 Hct 28.0 % (36-47) L 07/07/25 17:41 MCV 89.2 fl (85-98) 07/07/25 17:41 MCH 26.8 pg (27-33) L 07/07/25 17:41 MCHC 30.0 g/dL (30-55) 07/07/25 17:41 RDW 14.6 % (12.1-15.1) 07/07/25 17:41 Plt Count 392 10^3/cmm (157-399) 07/07/25 17:41 MPV 10.7 fL (7.4-10.4) H 07/07/25 17:41 Neut % (Auto) 65.3 % 07/07/25 17:41 Lymph % (Auto) 22.8 % 07/07/25 17:41 [place] % (Auto) 8.3 % 07/07/25 17:41 Eos % (Auto) 2.6 % 07/07/25 17:41 Baso % (Auto) 0.8 % 07/07/25 17:41 Neut # (Auto) 5.52 10^3/uL (1.8-7.7) 07/07/25 17:41 Lymph # (Auto) 1.9 10^3/uL (0.8-4.8) 07/07/25 17:41 [place] # (Auto) 0.7 10^3/uL (0.2-0.9) 07/07/25 17:41 Eos # (Auto) 0.2 10^3/uL (0.0-0.8) 07/07/25 17:41 Baso # (Auto) 0.1 10^3/uL (0.0-0.1) 07/07/25 17:41 Nucleated RBC % (auto) 0 % 07/07/25 17:41 Nucleated RBCs # 0.0 /100WBC 07/07/25 17:41 PT 19.20 SECONDS (12.1-14.9) H 07/07/25 17:41 INR 1.52 (0.8-1.2) H 07/07/25 17:41 APTT 37.7 SECONDS (23.9-36.7) H 07/07/25 17:41 Sodium 140 mmol/L (136-145) 07/07/25 17:41 Potassium 4.4 mmol/L (3.5-5.1) 07/07/25 17:41 Chloride 105 mmol/L (98-107) 07/07/25 17:41 Carbon Dioxide 24 mmol/L (22-29) 07/07/25 17:41 Anion Gap 15.4 (5-19) 07/07/25 17:41 BUN 17 mg/dL (8-23) 07/07/25 17:41 Creatinine 0.9 mg/dL (0.5-0.9) 07/07/25 17:41 GFR Calculation Not Reportable 07/07/25 17:41 Glucose 103 mg/dL (65-115) 07/07/25 17:41 Calculated Osmolality 292 mOsm/kg (285-295) 07/07/25 17:41 Calcium 9.1 mg/dL (8.5-10.5) 07/07/25 17:41 Magnesium 2.0 mg/dL (1.7-2.3) 07/07/25 17:41 Total Bilirubin 0.3 mg/dL (0.15-1.2) 07/07/25 17:41 AST 20 U/L (0-32) 07/07/25 17:41 ALT 11 U/L (0-33) 07/07/25 17:41 Alkaline Phosphatase 81 U/L (35-105) 07/07/25 17:41 Troponin T Baseline 15 ng/L (0-10) H 07/07/25 17:41 NT-Pro-B Natriuret Pep 4798 pg/mL (0-450) H 07/07/25 17:41 Total Protein 6.0 g/dL (6.6-8.7) L 07/07/25 17:41 Albumin 4.2 g/dL (3.5-5.2) 07/07/25 17:41 Globulin 1.8 g/dL (1.3-4.6) 07/07/25 17:41 TSH 1.76 uIU/mL (0.27-4.20) 07/07/25 17:41 All radiology interpretation(s) finalized by discharge Discharge Plan Discharge Patient Disposition: Placed in Observation Admit Provider: Michael Banda Clinical Impression: Atrial fibrillation with RVR Coding Level of Care Code ED Choke Setter for Chloé Blanton
--- NOTE | 2025-07-07 17:45 | PC.NURSE ---
Pt's intel recruiter is Dr. Narayanan.
[2025-07-07 17:53] LABS: Hematocrit 28.0 % (36-47); Hemoglobin 8.40 g/dL (11.27-16.99); Mean Corpuscular HGB Conc 30.0 g/dL (30-55); Mean Corpuscular Hemoglobin 26.8 pg (27-33); Mean Corpuscular Volume 89.2 fl (85-98); Nucleated Red Blood Cells % 0 %; Platelet Count 392 10^3/cmm (157-399); Red Blood Count 3.14 10^6/uL (3.85-5.65); White Blood Count 8.46 10^3/uL (3.29-11.43)
[2025-07-07 18:05] LABS: INR 1.52 (0.8-1.2); Prothrombin Time 19.20 SECONDS (12.1-14.9)
[2025-07-07 18:06] LABS: Partial Thromboplastin Time 37.7 SECONDS (23.9-36.7)
--- NOTE | 2025-07-07 18:06 | ECG_ITS ---
[facility] Test Date: 2025-07-07 Pat Name: Beryl Juárez Department: Room: Gender: Female Veterinary Medical Officer: : 1945 Requested By: Stevo Qureshi Order Number: [id number] Olga MD: Tor Hdz M.D. Measurements Intervals [place] Rate: 101 P: 0 MA: 0 QRS: 86 QRSD: 112 T: 83 QT: 377 QTc: 490 Interpretive Statements ATRIAL FLUTTER/TACHYCARDIA WITH RAPID VENTRICULAR RESPONSE LOW QRS VOLTAGE IN PRECORDIAL LEADS [QRS DEFLECTION < 1.0 mV IN CHEST LEADS] POSSIBLE RIGHT VENTRICULAR CONDUCTION DELAY [RSR (QR) IN V1/V2] ST ELEVATION, CONSIDER INFERIOR INJURY [MARKED ST ELEVATION W/O NORMALLY INFLECTED T-WAVE IN II/aVF] ACUTE [place] Compared to ECG 07/07/2025 16:57:22 Low QRS voltage now present ST (T wave) deviation now present Myocardial infarct finding now present Right bundle-branch block no longer present Electronically Signed On 07-08-2025 18:09:56 CDT by Tor Hdz M.D. [email or web address]
[2025-07-07 18:15] LABS: Troponin(5th) Baseline 15 ng/L (0-10)
[2025-07-07 18:22] LABS: Alanine Aminotransferase 11 U/L (0-33); Albumin Level 4.2 g/dL (3.5-5.2); Alkaline Phosphatase 81 U/L (35-105); Anion Gap 15.4 (5-19); Aspartate Amino Transferase 20 U/L (0-32); Blood Urea Nitrogen 17 mg/dL (8-23); Calcium 9.1 mg/dL (8.5-10.5); Carbon Dioxide 24 mmol/L (22-29); Chloride 105 mmol/L (98-107); Creatinine Clr Calc Pharmacy 51.9012; Globulin 1.8 g/dL (1.3-4.6); Glucose 103 mg/dL (65-115); Magnesium 2.0 mg/dL (1.7-2.3); NT Pro B Type Natriuretic Pept 4798 pg/mL (0-450); Osmolality Calculated 292 mOsm/kg (285-295); Potassium 4.4 mmol/L (3.5-5.1); Sodium 140 mmol/L (136-145); Thyroid Stimulating Hormone 1.76 uIU/mL (0.27-4.20); Total Protein 6.0 g/dL (6.6-8.7)
[2025-07-07] MEDS: dilTIAZem 100 MG in sodium chloride 0.9% (add-van) 100 ML IV (18:38)
--- NOTE | 2025-07-07 20:24 | P.HP_ITS ---
Providers/Chief Complaint 2 Admitting Physician: Michael Banda MD Primary Care Provider: Christel Gay, [facility]-C Chief Complaint: afib with rvr History of Present Illness Beryl Juárez is a 79 year old female with history of atrial fibrillation diagnosed in October of this year when she was admitted with bowel obstruction. She has been taking apixaban faithfully and also metoprolol. She comes in today with a flutter and rapid ventricular rate. Patient was monitoring increasing tachycardia at home and she and her son-in-law Dain and daughter Kesha who are present at bedside have kept good record. In the last week she has had heart rates into the 120s and 150s repeatedly. Measuring from 06/23/202024 heart rate 125 on the second 153 on the third 125 on the fourth 153 on the ninth 158 and on the 150s and today 150. Notably the days that she did not have tachycardia include June 27, , , and . The patient has palpitations she states ironically is more when her heart is going slower but she has dyspnea on exertion. She has had chest pain once sharp and once heavy but only transient for few minutes on 2 occasions during that time. Patient notes weight loss of 30 pounds avoiding sugar because she was told that her A1c was prediabetic by her doctor. A1c last year in February was 6.4 and more recently was 5.8 on 12/09/2024 Review of Systems 2 Narrative: General no fevers chills she has had some night sweats she has had weight loss of 30 pounds avoiding sugar and trying to do better but does have the history of breast cancer and non-Hodgkin's lymphoma. Cardiovascular transient chest pain as described above she has had intermittent palpitations she denies leg swelling she does have dyspnea on exertion dizziness when heart rate is fast Respiratory no shortness of breath cough wheezing at rest GI no nausea vomiting diarrhea she does have constipation for which she takes MiraLAX daily and has bowel movements daily positive for incontinence of urine without dysuria hematuria Psych negative Malignancy history positive for non-Hodgkin's lymphoma 2003 and breast cancer 2019 treated with lumpectomy on the left breast as well as radiation but no chemotherapy. Medications/Allergies Home Medications ?Medication ?Instructions ?Recorded ?Confirmed ?Last Taken ?Type multivitamin (Daily Multi-Vitamin 1 tab PO DAILY 01/2707/07/25 Unknown History tablet) letrozole 2.5 mg tablet See Rx Instructions .Route 0 02/03/25 07/07/25 Unknown Rx .COMPLEX #90 tabs valsartan 160 mg tablet 160 mg PO QAM #90 tabs 02/1807/07/25 Unknown Rx valsartan 80 mg tablet 80 mg PO DAILY PRN hypertens ion 03/26/25 07/07/25 Unknown Rx #30 tabs apixaban 5 mg tablet (Eliquis) 5 mg PO BID #180 tabs 0 04/08/25 07/07/25 Unknown Rx alendronate 70 mg tablet (Fosamax) 70 mg PO .weekly #4 tabs 05/28/25 07/07/25 Unknown Rx calcium 500 mg (as 1 tab PO .2 times day #60 ta bs 05/28/25 07/07/25 Unknown Rx carbonate)-vitamin D3 15 mcg (600 unit) tablet (Os-Denys 500 + D3) cholecalciferol (vitamin D3) 125 125 mcg PO DAILY #30 caps 05/28/25 07/07/25 Unknown Rx mcg (5,000 unit) capsule clopidogrel 75 mg tablet 75 mg PO DAILY #30 tabs 08/04/1607/07/25 Unknown Rx escitalopram oxalate 10 mg tablet 10 mg PO DAILY #30 t abs 05/28/25 07/07/25 Unknown Rx (Lexapro) famotidine 20 mg tablet 20 mg PO .HS PRN acid reflux #30 05/28/25 07/07/25 Unknown Rx tabs icosapent ethyl 1 gram capsule See Rx Instructions .Ro iqugmiut 05/28/25 07/07/25 Unknown Rx (Vascepa) .COMPLEX #120 caps levothyroxine 100 mcg tablet 100 mcg PO DAILY #30 tabs 05/28/25 07/07/25 Unknown Rx (Levoxyl) metoprolol tartrate 25 mg tablet 12.5 mg (1/2 x 25 mg) PO BID 30 05/28/25 07/07/25 Unknown Rx days #30 tabs polyethylene glycol 3350 17 17 g PO DAILY #510 grams 0 05/28/25 07/07/25 Unknown Rx gram/dose oral powder rosuvastatin 20 mg tablet (Crestor) 20 mg PO DAILY #30 tabs 05/28/25 07/07/25 Unknown Rx tramadol 50 mg tablet 50 mg PO BID PRN pain #60 ta bs 05/28/25 07/07/25 Unknown Rx Allergies Allergy/AdvReac Type Severity Reaction Status Date / Time nitrofurantoin (From Allergy ALGY-Rash Verified 07/07/25 14:49 Macrobid) Opioids - Morphine Analogues AdvReac other Verified 07/07/25 14:49 PFSH Acute 2 PFSH: Medical History Vitamin D deficiency Constipation, slow transit Lung nodule Breast cancer Situational anxiety Gastric reflux Mixed hyperlipidemia Age related osteoporosis Osteoarthritis TIA (transient ischemic attack) Environmental and seasonal allergies Essential (primary) hypertension Non-Hodgkin lymphoma in remission 1997 with chemo and radiation History of left breast cancer Surgical History History of cataract extraction July 2023 History of right breast biopsy Fibrocystic breast 1983 History of tonsillectomy History of hysterectomy with BSO History of cholecystectomy History of appendectomy History of lumpectomy of left breast 2019 [place] Family History Other Cancer Dementia Hypertension Stroke Denies family history of Diabetes Clotting disorder Anesthesia complication Bleeding disorder Social History (Updated 07/07/25 @ 20:32 by Michael Banda MD) Smoking and tobacco/nicotine status: never used tobacco/nicotine Second hand smoke exposure: No Alcohol intake: former Former alcohol use details: Minimal i.e. 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, 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 Pets and animals: Yes Pets & animals: cat(s) Do you think of yourself as: Straight/Heterosexual Current gender identity: Female Vitals/I&O/Wt Last Vital Signs Temp 98.3 F 07/07/25 16:58 Pulse 89 07/07/25 20:23 Resp 18 07/07/25 18:30 BP 132/104 07/07/25 20:00 Pulse Ox 91 07/07/25 20:23 O2 Del Method Room Air 07/07/25 20:23 07/07/25 07/07/25 07/07/25 06:59 14:59 22:59 Intake Total 6.458 / 6.458 Balance 6.458 / 6.458 Weight last 48 hrs Weight 64.864 kg Physical Exam 2 Narrative: General well-developed well-nourished female overweight Oropharynx Mallampati 2 Cardiovascular neck no bruits CV irregular with intermittent bigeminy radial pulses 2+ Lungs clear to auscultation bilaterally Abdomen positive bowel tones soft nontender Calves trace ankle edema Skin is warm and dry Mentation alert and oriented x 3 pleasant mood and affect normal Data 07/07/25 17:41 07/07/25 17:41 A&P Assessment and plan 1. Atrial fibrillation with RVR: Patient is already on apixaban and takes it faithfully 5 mg twice a day. She is on metoprolol for rate control but now that has failed and diltiazem IV drip also failing. I considered cardioversion immediately however she is not decompensated and I do not think she will stay in sinus rhythm without an antiarrhythmic. Discussed the risk benefits of amiodarone including lung toxicity and eye toxicity which are dose-dependent and time dependent and she and family agree to proceed. Will load with amiodarone protocol. Patient is transferred to the ICU. Will wean off diltiazem drip. Potassium 4.4 magnesium 2 and TSH 1.76 Chest x-ray shows cardiomegaly but not volume overload will give 20 mg of furosemide IV potassium 40 mill colons p.o. and magnesium 400 mg p.o. x 1 2. Constipation, slow transit: Continue with MiraLAX and add docusate 3. Adult onset hypothyroidism: TSH is within range 4. Mixed hyperlipidemia: Continue rosuvastatin 5. TIA (transient ischemic attack): Continue rosuvastatin and Plavix. On further discussion patient has not had TIAs since she has been put on apixaban. She had a stroke in years ago and a few TIAs. I wonder if that was related to undiagnosed A-fib at the time 6. Essential (primary) hypertension: Stable on multiple medications I resumed all the meds except for metoprolol for now as below the amiodarone 7. Non-Hodgkin lymphoma in remission: Stable 8. History of left breast cancer: Stable PDMP PDMP Reviewed: Not Reviewed Attestations 2 Medical Necessity Statement*: Patient is admitted the hospital. She has had poor response to diltiazem drip and will be started on amiodarone drip and anticipated to require greater than 2 midnights in the hospital Coding Level of Care Code 30516 Diagnoses Atrial fibrillation with RVR I48.91 Constipation, slow transit K59.01 Adult onset hypothyroidism E03.8 Mixed hyperlipidemia E78.2 TIA (transient ischemic attack) G45.9 Essential (primary) hypertension I10 Non-Hodgkin lymphoma in remission C85.9A History of left breast cancer Z85.3 Time Spent (min) 70
--- NOTE | 2025-07-07 20:30 | P.CONIM_ITS ---
Providers/Reason For Consult 2 Consulting Physician/Specialty*: VADIM Hdz MD/cardiology Reason for Consult*: Patient with atrial fibrillation rapid ventricular rate Requesting Physician: Dr. Banda Primary Care Provider: RUEL Lugo History of Present Illness History of Present Illness Beryl Juárez is a 79 year old female with a history of atrial fibrillation, CVA, hypertension and non-Hodgkin's lymphoma is presenting with atrial fibrillation with rapid ventricular rate. Initially she responded to IV Cardizem and converted to sinus rhythm. But then she went back into fibrillation with rapid ventricular rate. Cardiology consult is requested for further cardiac evaluation recommendations This patient was initially diagnosed with atrial fibrillation in November of this year when she presented with small bowel obstruction. She converted spontaneously to sinus rhythm. Apparently she was remaining in sinus rhythm with the metoprolol up until recently.. According to the patient, for the last couple of weeks, she has been having episodes of palpitation associated with dizziness, shortness of breath and some sharp chest pains. Chest pains may last only for few seconds. She was getting tired and dizzy intermittently. No syncopal episodes. She was brought to the emergency room with these complaints. She was diagnosed with non-Hodgkin lymphoma and underwent chemotherapy and radiation around 2004. She was diagnosed with breast cancer in 2019. She has been having high blood pressure for many years. She has been doing okay with no significant complaints up until recently. No fever, chills or cough. She had multiple TIAs in the past. She been on Plavix for this. Has not had any recurrence of TIA since 2022. She has been taking Plavix with Eliquis. Has not had any obvious bleeding complications. However she bruises easily Review of Systems 2 Narrative: CONSTITUTIONAL: No fever or chills. EYES: No blurring of vision or other visual disturbances lately. ENT: No hoarseness of voice, auditory disturbances or sore throat. CARDIOVASCULAR: As mentioned above. RESPIRATORY: No significant cough. GASTROINTESTINAL: No hematemesis or melena. GENITOURINARY: No dysuria or hematuria. INTEGUMENTARY: Easy bruising NEURO: History of multiple TIAs in the past PSYCHIATRIC: No history of psychosis or major depression. HEMATOLOGIC: On long-term oral anticoagulation. History of non-Hodgkin's lymphoma ENDOCRINE: No history of polyuria or polydipsia. MUSCULOSKELETAL: No recent joint pain or swelling. ALLERGY/IMMUNOLOGY: As mentioned above. Medications/Allergies Home Medications ?Medication ?Instructions ?Recorded ?Confirmed ?Last Taken ?Type multivitamin (Daily Multi-Vitamin 1 tab PO DAILY 01/2707/08/25 Unknown History tablet) letrozole 2.5 mg tablet See Rx Instructions .Route 0 02/03/25 07/08/25 Unknown Rx .COMPLEX #90 tabs valsartan 160 mg tablet 160 mg PO QAM #90 tabs 02/1807/08/25 Unknown Rx valsartan 80 mg tablet 80 mg PO DAILY PRN hypertens ion 03/26/25 07/08/25 Unknown Rx #30 tabs apixaban 5 mg tablet (Eliquis) 5 mg PO BID #180 tabs 0 04/08/25 07/08/25 Unknown Rx alendronate 70 mg tablet (Fosamax) 70 mg PO .weekly #4 tabs 05/28/25 07/08/25 Unknown Rx calcium 500 mg (as 1 tab PO .2 times day #60 ta bs 05/28/25 07/08/25 Unknown Rx carbonate)-vitamin D3 15 mcg (600 unit) tablet (Os-Denys 500 + D3) cholecalciferol (vitamin D3) 125 125 mcg PO DAILY #30 caps 05/28/25 07/08/25 Unknown Rx mcg (5,000 unit) capsule clopidogrel 75 mg tablet 75 mg PO DAILY #30 tabs 08/04/1607/08/25 Unknown Rx escitalopram oxalate 10 mg tablet 10 mg PO DAILY #30 t abs 05/28/25 07/08/25 Unknown Rx (Lexapro) famotidine 20 mg tablet 20 mg PO .HS PRN acid reflux #30 05/28/25 07/08/25 Unknown Rx tabs icosapent ethyl 1 gram capsule See Rx Instructions .Ro gabriele 05/28/25 07/08/25 Unknown Rx (Vascepa) .COMPLEX #120 caps levothyroxine 100 mcg tablet 100 mcg PO DAILY #30 tabs 05/28/25 07/08/25 Unknown Rx (Levoxyl) metoprolol tartrate 25 mg tablet 12.5 mg (1/2 x 25 mg) PO BID 30 05/28/25 07/08/25 Unknown Rx days #30 tabs polyethylene glycol 3350 17 17 g PO DAILY #510 grams 0 05/28/25 07/08/25 Unknown Rx gram/dose oral powder rosuvastatin 20 mg tablet (Crestor) 20 mg PO DAILY #30 tabs 05/28/25 07/08/25 Unknown Rx tramadol 50 mg tablet 50 mg PO BID PRN pain #60 ta bs 05/28/25 07/08/25 Unknown Rx Allergies Allergy/AdvReac Type Severity Reaction Status Date / Time nitrofurantoin (From Allergy ALGY-Rash Verified 07/07/25 14:49 Macrobid) Opioids - Morphine Analogues AdvReac other Verified 07/07/25 14:49 Current Medications Generic Name Dose Route Start Last Admin Trade Name Freq PRN Reason Stop Dose Admin Diltiazem HCl 100 mg/ Sodium 100 mls @ 0 mls/hr 07/07/25 18:15 07/07/25 19:34 Chloride IV 10 mg/hr .Q0M INDIRA 10 mls/hr Protocol Titration Per Protocol PFSH Acute 2 PFSH: Medical History Vitamin D deficiency Constipation, slow transit Lung nodule Breast cancer Situational anxiety Gastric reflux Mixed hyperlipidemia Age related osteoporosis Osteoarthritis TIA (transient ischemic attack) Environmental and seasonal allergies Essential (primary) hypertension Non-Hodgkin lymphoma in remission 1997 with chemo and radiation History of left breast cancer Surgical History History of cataract extraction July 2023 History of right breast biopsy Fibrocystic breast 1984 History of tonsillectomy History of hysterectomy with BSO History of cholecystectomy History of appendectomy History of lumpectomy of left breast 2019 [place] Family History Other Cancer Dementia Hypertension Stroke Denies family history of Diabetes Clotting disorder Anesthesia complication Bleeding disorder Social History (Updated 07/07/25 @ 20:32 by Michael Banda MD) Smoking and tobacco/nicotine status: never used tobacco/nicotine Second hand smoke exposure: No Alcohol intake: former Former alcohol use details: Minimal i.e. 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 Not in any acute distress. HEENT: No significant pallor, icterus or lymphadenopathy.Oral cavity: There are no mucous membrane lesions. NECK: Trachea appears to be central. No masses noted. No JVD or thyromegaly appreciated. RESPIRATORY: Chest is symmetrical. No intercostals muscle retraction or any accessory muscle activation. There is no chest wall tenderness. Breath sounds are heard bilaterally. No rales or rhonchi heard. No evidence of any consolidation. BREASTS: Deferred. HEART: The heart sounds are normal. No S3 or S4. Short systolic murmur at the left sternal border. No diastolic murmurs. No pericardial rub ABDOMEN: No vessel pulsations or distention. No tenderness. No organomegaly appreciated. Bowel sounds are normally heard. : Deferred. RECTAL: Deferred. LYMPHATIC: No lymphadenopathy noted in the neck. EXTREMITIES: No edema or cyanosis. No clubbing. MUSCULOSKELETAL: No acute joint deformities or swelling SKIN: There are no significant rashes or ecchymosis NEUROPSYCHIATRIC: The patient is alert and oriented x3. Appears to be in a good mood. No tremors or rigidity noted. Data 07/08/25 03:44 07/08/25 03:44 Other Labs: Laboratory Last Values WBC 8.46 10^3/uL (3.29-11.43) 07/07/25 17:41 RBC 3.14 10^6/uL (3.85-5.65) L 07/07/25 17:41 Hgb 8.40 g/dL (11.27-16.99) L 07/07/25 17:41 Hct 28.0 % (36-47) L 07/07/25 17:41 MCV 89.2 fl (85-98) 07/07/25 17: MCH 26.8 pg (27-33) L 07/07/25 17:41 MCHC 30.0 g/dL (30-55) 07/07/25 17:41 RDW 14.6 % (12.1-15.1) 07/07/25 17:41 Plt Count 392 10^3/cmm (157-399) 07/07/25 17:41 MPV 10.7 fL (7.4-10.4) H 07/07/25 17:41 Neut % (Auto) 65.3 % 07/07/25 17:41 Lymph % (Auto) 22.8 % 07/07/25 17:41 Geary % (Auto) 8.3 % 07/07/25 17:41 Eos % (Auto) 2.6 % 07/07/25 17: Baso % (Auto) 0.8 % 07/07/25 17: Neut # (Auto) 5.52 10^3/uL (1.8-7.7) 07/07/25 17:41 Lymph # (Auto) 1.9 10^3/uL (0.8-4.8) 07/07/25 17:41 Geary # (Auto) 0.7 10^3/uL (0.2-0.9) 07/07/25 17:41 Eos # (Auto) 0.2 10^3/uL (0.0-0.8) 07/07/25 17:41 Baso # (Auto) 0.1 10^3/uL (0.0-0.1) 07/07/25 17:41 Nucleated RBC % (auto) 0 % 07/07/25 17:41 Nucleated RBCs # 0.0 /100WBC 07/07/25 17:41 PT 19.20 SECONDS (12.1-14.9) H 07/07/25 17:41 INR 1.52 (0.8-1.2) H 07/07/25 17:41 APTT 37.7 SECONDS (23.9-36.7) H 07/07/25 17:41 Sodium 140 mmol/L (136-145) 07/07/25 17:41 Potassium 4.4 mmol/L (3.5-5.1) 07/07/25 17:41 Chloride 105 mmol/L (98-107) 07/07/25 17:41 Carbon Dioxide 24 mmol/L (22-29) 07/07/25 17:41 Anion Gap 15.4 (5-19) 07/07/25 17:41 BUN 17 mg/dL (8-23) 07/07/25 17:41 Creatinine 0.9 mg/dL (0.5-0.9) 07/07/25 17:41 GFR Calculation Not Reportable 07/07/25 17:41 Glucose 103 mg/dL (65-115) 07/07/25 17:41 Calculated Osmolality 292 mOsm/kg (285-295) 07/07/25 17:41 Calcium 9.1 mg/dL (8.5-10.5) 07/07/25 17:41 Magnesium 2.0 mg/dL (1.7-2.3) 07/07/25 17:41 Total Bilirubin 0.3 mg/dL (0.15-1.2) 07/07/25 17:41 AST 20 U/L (0-32) 07/07/25 17:41 ALT 11 U/L (0-33) 07/07/25 17:41 Alkaline Phosphatase 81 U/L (35-105) 07/07/25 17:41 Troponin T Baseline 15 ng/L (0-10) H 07/07/25 17:41 NT-Pro-B Natriuret Pep 4798 pg/mL (0-450) H 07/07/25 17:41 Total Protein 6.0 g/dL (6.6-8.7) L 07/07/25 17:41 Albumin 4.2 g/dL (3.5-5.2) 07/07/25 17:41 Globulin 1.8 g/dL (1.3-4.6) 07/07/25 17:41 TSH 1.76 uIU/mL (0.27-4.20) 07/07/25 17:41 Other data: Echocardiogram from 11/09/2024 Normal left ventricular size, systolic function and wall thickness, with no regional wall motion abnormalities. Left ventricular ejection fraction is estimated at 60 %. Grade II/IV diastolic dysfunction, moderately elevated filling pressures. Moderately increased left atrial size. Moderately thickened mitral valve. Moderate mitral annular calcification. No mitral valve stenosis. Moderate mitral valve regurgitation. Moderate aortic valve calcification. Mild aortic valve stenosis, mean gradient 3.6 mmHg, LARRY 2 cm squared. Trace aortic valve regurgitation. Mild tricuspid valve regurgitation. There is no pericardial effusion. Right atrial pressure is around 5 mm of mercury. A&P Assessment and plan 1. Atrial fibrillation with RVR: Patient he is on IV Cardizem. She may be started on IV amiodarone and discontinue the Cardizem. She need to be closely monitored on telemetry. 2. Mixed hyperlipidemia: Continue on the current medication 3. Essential (primary) hypertension: I may start her on FRANCISCO inhibitor namely lisinopril 10 mg p.o. daily 4. Anemia due to other cause, not classified: The etiology of the anemia is not clear. She has no obvious external bleeding. This need to be further evaluated. The dose of the Eliquis may be cut back to 2.5 mg p.o. twice daily 5. TIA (transient ischemic attack): The Plavix may be continued for the time being. Plan: Based on the clinical progress, further recommendations will be made Thank you for the opportunity to evaluate this patient and make these recommendations PDMP PDMP Reviewed: Not Reviewed Coding Level of Care Code 42217 Diagnoses Atrial fibrillation with RVR I48.91 Mixed hyperlipidemia E78.2 Essential (primary) hypertension I10 Anemia due to other cause, not classified D64.89 Anemia type: other cause Other causes of anemia: other cause, not classified TIA (transient ischemic attack) G45.9
[2025-07-07] MEDS: FUROsemide 10 mg/mL SDV 2mL 20 MG IVP (20:49)
[2025-07-07 20:55] LABS: Troponin 5 2HR 15.42 ng/L (0-10); Troponin 5 2HR Delta 0.42 ABS# (0-10)
--- NOTE | 2025-07-07 21:59 | PC.NURSE ---
Have had difficult with starting second IV for ICU admit, charge nurse notified and attempted, US IV attempted, house sup notified for IV access.
[2025-07-07] MEDS: amiodarone 150 MG/100 ML PREMIX 400 MG IV (22:22)
[2025-07-07] MEDS: AMIODARONE HCL/D5W 900 MG/500 ML BAG 33.33 MG IV (22:49)
[2025-07-08] VITALS (131 sets, daily range): BP systolic 61–151; BP diastolic 34–109; PULSE 38–146; RESP 12–33; TEMP 36.2–36.7; O2SAT 87–100
[2025-07-08 00:36] LABS: Troponin 5 6HR 16.42 ng/L (0-10); Troponin 5 6HR Delta 1.42 ng/L (0-12)
[2025-07-08] MEDS: dilTIAZem 100 MG in sodium chloride 0.9% (add-van) 100 ML IV (01:56)
[2025-07-08 03:56] LABS: Hematocrit 28.8 % (36-47); Hemoglobin 8.40 g/dL (11.27-16.99); Mean Corpuscular HGB Conc 29.2 g/dL (30-55); Mean Corpuscular Hemoglobin 26.2 pg (27-33); Mean Corpuscular Volume 89.7 fl (85-98); Nucleated Red Blood Cells % 0 %; Platelet Count 353 10^3/cmm (157-399); Red Blood Count 3.21 10^6/uL (3.85-5.65); White Blood Count 9.95 10^3/uL (3.29-11.43)
[2025-07-08 04:18] LABS: Anion Gap 19.0 (5-19); Blood Urea Nitrogen 19 mg/dL (8-23); Calcium 9.1 mg/dL (8.5-10.5); Carbon Dioxide 22 mmol/L (22-29); Chloride 103 mmol/L (98-107); Creatinine Clr Calc Pharmacy 51.6100; Glucose 114 mg/dL (65-115); Magnesium 2.1 mg/dL (1.7-2.3); Osmolality Calculated 293 mOsm/kg (285-295); Potassium 4.0 mmol/L (3.5-5.1); Sodium 140 mmol/L (136-145)
--- NOTE | 2025-07-08 04:36 | PC.NURSE ---
Eyad booth Contacted Dr. Banda in regards to amiodarone protocol, recent vital signs discussed, received order at this time to keep drip at 1. MAR reflected to show orders.
--- NOTE | 2025-07-08 05:24 | PC.NURSE ---
Scheduled Losartan Contacted Dr. Banda in regards to 0600 scheduled Losartan, current vital signs and medications discussed, received orders at this time to hold AM dose. MAR reflected to show orders
[2025-07-08] MEDS: multivitamin therapeutic Tablet 1 TAB PO (08:46)
--- NOTE | 2025-07-08 08:58 | PM.OP ---
Operative Report Date of procedure: July 08, 2025 Surgeon: Tor Hdz MD Procedure: Date of Procedure: 07/08/2025 Name of the procedure: IMPLANTABLE MANAGER HARBOR INSERTION LOCATION: [facility] REFERRING PROVIDER: [] PREOPERATIVE DIAGNOSIS: [Recurrent syncope.] [] POSTOPERATIVE DIAGNOSIS: Same. ESTIMATED BLOOD LOSS: None[] COMPLICATIONS: None. BRIEF HISTORY: Patient presented with [recurrent episodes of syncope]. [She][He] had an [event monitor] which didn't reveal any significant arrhythmias to explain the symptoms. For further evaluation, an implantable traffic monitor specialist was recommended PROCEDURE: The procedure was explained to the patient in detail with the risks and benefits. The risk of bleeding, hematoma, vascular injury, infection and other concomitant complications were explained in detail. The patient understood this well and consented to proceed. The patient was brought to the Cardiac Supervising Chef. The patient was given [2 g of Keflex] preoperatively. The left side of the chest was cleaned and draped in a sterile fashion. 1% Xylocaine was used as local anesthetic agent. An incision was made in the left fourth intercostal space. Making use of the application device, the implantable traffic monitor specialist was inserted, subcutaneously. 5 minutes of manual pressure was applied, at the puncture site. The patient tolerated the procedure very well and there were no complications. No bleeding or hematoma. Steri-Strips were applied over the insertion site followed by a sterile dressing. Patient was sent back to the medical floor in stable condition IMPLANTED DEVICE Reveal LINQ Model number: LNQ II Serial number: [RLB] [[id number]] Make: Pug [employer] Parameters: Standard settings were applied( (tachycardia rate of 150 beats per minute , bradycardia rate of 40 beats per minute and a pause of 3 seconds ; symptom recording -4 episodes of 7.5 minutes. Atrial fibrillation detection was turned on- recording threshold of ->6 minutes. Sensitivity was kept at 0.035 mV) The R wave sensing was [0.27]mV
--- NOTE | 2025-07-08 09:07 | P.PN_ITS ---
Subjective 2 Subjective: This patient has been on amiodarone and IV Cardizem through the night. The Cardizem was discontinued this morning. She apparently went into a junctional rhythm/bradycardia/high degree AV block and hypotension. She she was given some IV fluid and also was started on low-dose of dopamine. The heart rate and her blood pressure is slowly improving. Denies any chest pain. No ischemic EKG changes. The echocardiogram revealed normal LV size and ejection fraction with no significant wall motion normalities. Hemoglobin was found to be 8.9 Medications: Medication Review Details: Current Medications Acetaminophen (Acetaminophen 325 Mg Tablet) 650 mg PO Q4H PRN PRN Reason: MILD PAIN OR INCREASE TEMP Last Admin: 07/08/25 06:02 Dose: 650 mg Apixaban (Apixaban 5 Mg Tablet) 5 mg PO BID [facility] Last Admin: 07/08/25 08:45 Dose: 5 mg Atorvastatin Calcium (Atorvastatin 40 Mg Tablet) 80 mg PO DAILY [facility] Last Admin: 07/08/25 08:46 Dose: 80 mg Clopidogrel Bisulfate (Clopidogrel 75 Mg Tablet) 75 mg PO DAILY [facility] Last Admin: 07/08/25 08:46 Dose: 75 mg Docusate Sodium (Docusate Sodium 100 Mg Capsule) 100 mg PO BID [facility] Last Admin: 07/08/25 08:45 Dose: 100 mg Escitalopram Oxalate (Escitalopram 10 Mg Tablet) 10 mg PO DAILY [facility] Last Admin: 07/08/25 08:45 Dose: 10 mg Diltiazem HCl 100 mg/ Sodium (Chloride) 100 mls @ 0 mls/hr IV .Q0M [facility]; Protocol Last Titration: 07/08/25 05:30 Dose: 7.5 mg/hr, 7.5 mls/hr AMIODARONE HCL/D5W (Amiodarone 900 Mg/500 Ml-D5w) 900 mg in 500 mls @ 0 mls/hr IV .Q0M [facility]; Protocol Last Admin: 07/07/25 22:49 Dose: 1 mg/min, 33.33 mls/hr Levothyroxine Sodium (Levothyroxine 100 Mcg Tablet) 100 mcg PO DAILY [facility] Last Admin: 07/08/25 07:36 Dose: 100 mcg Losartan Potassium (Losartan 50 Mg Tablet) 50 mg PO QAM [facility] Last Admin: 07/08/25 05:24 Dose: Not Given Metoprolol Tartrate (Metoprolol Tartrate 25 Mg Tablet) 12.5 mg PO BID [facility] Last Admin: 07/08/25 08:46 Dose: 12.5 mg Multivitamins Therapeutic (Multivitamin Therapeutic Tablet) 1 tab PO DAILY [facility] Last Admin: 07/08/25 08:46 Dose: 1 tab Non-Formulary Medication (Icosapent Ethyl [Vascepa]) 0 gm .ROUTE .COMPLEX [facility] Non-Formulary Medication (Letrozole) 0 mg .ROUTE .COMPLEX [facility] Pantoprazole Sodium (Pantoprazole Dr 40 Mg Tablet) 40 mg PO BID [facility] Last Admin: 07/08/25 08:45 Dose: 40 mg Tramadol HCl (Tramadol 50 Mg Tablet) 50 mg PO BID PRN PRN Reason: PAIN Last Admin: 07/08/25 00:41 Dose: 50 mg Vitamin D (Cholecalciferol (Vitamin D3) 5,000 Unit Tablet) 5,000 unit PO DAILY [facility] Last Admin: 07/08/25 08:46 Dose: 5,000 unit Vitals/I&O/Wt Last Vital Signs Temp 98.1 F 07/08/25 05:44 Pulse 114 H 07/08/25 06:05 Resp 16 07/08/25 06:05 BP 79/65 07/08/25 06:05 Pulse Ox 96 07/08/25 06:05 O2 Del Method Room Air 07/08/25 06:05 07/07/25 07/08/25 07/08/25 22:59 06:59 14:59 Intake Total 134.291 / 134.291 38.375 / 172.666 Balance 134.291 / 134.291 38.375 / 172.666 Weight last 48 hrs Weight 152 lb 1.903 oz Weight 152 lb 1.903 oz Weight 142 lb 3.17 oz Weight 143 lb Physical Exam 2 Narrative: GENERAL: The patient is alert and oriented times three. Not in any acute distress. HEENT: No significant pallor, icterus or lymphadenopathy.Oral cavity: There are no mucous membrane lesions. NECK: Trachea appears to be central. No masses noted. No JVD or thyromegaly appreciated. RESPIRATORY: Chest is symmetrical. No intercostals muscle retraction or any accessory muscle activation. There is no chest wall tenderness. Breath sounds are heard bilaterally. No rales or rhonchi heard. No evidence of any consolidation. BREASTS: Deferred. HEART: The heart sounds are normal. No S3 or S4. Short systolic murmur at the left sternal border. No diastolic murmurs. No pericardial rub ABDOMEN: No vessel pulsations or distention. No tenderness. No organomegaly appreciated. Bowel sounds are normally heard. : Deferred. RECTAL: Deferred. LYMPHATIC: No lymphadenopathy noted in the neck. EXTREMITIES: No edema or cyanosis. No clubbing. MUSCULOSKELETAL: No acute joint deformities or swelling SKIN: There are no significant rashes or ecchymosis NEUROPSYCHIATRIC: The patient is alert and oriented x3. Appears to be in a good mood. No tremors or rigidity noted. Data 07/08/25 16:16 07/08/25 03:44 Other Labs: Laboratory Last Values WBC 9.95 10^3/uL (3.29-11.43) 07/08/25 03:44 RBC 3.21 10^6/uL (3.85-5.65) L 07/08/25 03:44 Hgb 8.40 g/dL (11.27-16.99) L 07/08/25 03:44 Hct 28.8 % (36-47) L 07/08/25 03:44 MCV 89.7 fl (85-98) 07/08/25 03:44 MCH 26.2 pg (27-33) L 07/08/25 03:44 MCHC 29.2 g/dL (30-55) L 07/08/25 03:44 RDW 14.5 % (12.1-15.1) 07/08/25 03:44 Plt Count 353 10^3/cmm (157-399) 07/08/25 03:44 MPV 10.9 fL (7.4-10.4) H 07/08/25 03:44 Neut % (Auto) 68.5 % 07/08/25 03:44 Lymph % (Auto) 19.7 % 07/08/25 03:44 Morrison % (Auto) 8.7 % 07/08/25 03:44 Eos % (Auto) 2.5 % 07/08/25 03:44 Baso % (Auto) 0.4 % 07/08/25 03:44 Neut # (Auto) 6.81 10^3/uL (1.8-7.7) 07/08/25 03:44 Lymph # (Auto) 2.0 10^3/uL (0.8-4.8) 07/08/25 03:44 Morrison # (Auto) 0.9 10^3/uL (0.2-0.9) 07/08/25 03:44 Eos # (Auto) 0.3 10^3/uL (0.0-0.8) 07/08/25 03:44 Baso # (Auto) 0.0 10^3/uL (0.0-0.1) 07/08/25 03:44 Nucleated RBC % (auto) 0 % 07/08/25 03:44 Nucleated RBCs # 0.0 /100WBC 07/08/25 03:44 PT 19.20 SECONDS (12.1-14.9) H 07/07/25 17:41 INR 1.52 (0.8-1.2) H 07/07/25 17:41 APTT 37.7 SECONDS (23.9-36.7) H 07/07/25 17:41 Sodium 140 mmol/L (136-145) 07/08/25 03:44 Potassium 4.0 mmol/L (3.5-5.1) 07/08/25 03:44 Chloride 103 mmol/L (98-107) 07/08/25 03:44 Carbon Dioxide 22 mmol/L (22-29) 07/08/25 03:44 Anion Gap 19.0 (5-19) 07/08/25 03:44 BUN 19 mg/dL (8-23) 07/08/25 03:44 Creatinine 0.9 mg/dL (0.5-0.9) 07/08/25 03:44 GFR Calculation Not Reportable 07/08/25 03:44 Glucose 114 mg/dL (65-115) 07/08/25 03:44 Calculated Osmolality 293 mOsm/kg (285-295) 07/08/25 03:44 Calcium 9.1 mg/dL (8.5-10.5) 07/08/25 03:44 Magnesium 2.1 mg/dL (1.7-2.3) 07/08/25 03:44 Total Bilirubin 0.3 mg/dL (0.15-1.2) 07/07/25 17:41 AST 20 U/L (0-32) 07/07/25 17:41 ALT 11 U/L (0-33) 07/07/25 17:41 Alkaline Phosphatase 81 U/L (35-105) 07/07/25 17:41 Troponin T Baseline 15 ng/L (0-10) H 07/07/25 17:41 Troponin T 120 Minute 15.42 ng/L (0-10) H 07/07/25 20:12 Delta Troponin T 0.42 ABS# (0-10) 07/07/25 20:12 Troponin T Hi Sens 6Hr 16.42 ng/L (0-10) H 07/08/25 00:05 Troponin T Hi Sens 6Hr Delta 1.42 ng/L (0-12) 07/08/25 00:05 NT-Pro-B Natriuret Pep 4798 pg/mL (0-450) H 07/07/25 17:41 Total Protein 6.0 g/dL (6.6-8.7) L 07/07/25 17:41 Albumin 4.2 g/dL (3.5-5.2) 07/07/25 17:41 Globulin 1.8 g/dL (1.3-4.6) 07/07/25 17:41 TSH 1.76 uIU/mL (0.27-4.20) 07/07/25 17:41 A&P Assessment and plan 1. Bradycardia: Most likely related to combination of amiodarone/Cardizem/beta-fany. All these medications are discontinued at this time. Her heart rate seems to be slowly coming up. 2. Hypotension, unspecified hypotension type: Most likely from the bradycardia/high degree AV block-which in turn from the AV sin blocking agents. She is responding to low-dose of dopamine 3. Atrial fibrillation with RVR: Currently she seems to be in sinus bradycardia. 4. Mixed hyperlipidemia: Continue on the current medication 5. Anemia due to other cause, not classified: The etiology of the anemia is not clear. She has no obvious external bleeding. This need to be further evaluated. The dose of the Eliquis may be cut back to 2.5 mg p.o. twice daily The hemoglobin was found to be 8.9 with no evidence of any ongoing bleeding 6. TIA (transient ischemic attack): The Plavix may be continued for the time being. 7. Iron deficiency anemia, unspecified iron deficiency anemia type: Plan: Patient will be closely monitored on telemetry. We may hold off on any AV sin blocking agents at this time. Will check on a troponin T to rule out any myocardial injury of which my clinical suspicion may be low. Repeat EKG showed sinus bradycardia/high degree AV block with no acute ST-T changes. PDMP PDMP Reviewed: Not Reviewed Attestations 2 Medical Necessity Statement*: Patient requires continued hospital stay for close monitoring and further management Coding Level of Care Code 65120 Diagnoses Bradycardia R00.1 Hypotension, unspecified hypotension type I95.9 Hypotension type: unspecified hypotension type Atrial fibrillation with RVR I48.91 Mixed hyperlipidemia E78.2 Anemia due to other cause, not classified D64.89 Anemia type: other cause Other causes of anemia: other cause, not classified TIA (transient ischemic attack) G45.9 Iron deficiency anemia, unspecified iron deficiency anemia type D50.9 Iron deficiency anemia type: unspecified iron deficiency
--- NOTE | 2025-07-08 11:09 | ECG_ITS ---
[facility] Test Date: 2025-07-08 Pat Name: Beryl Juárez Department: Room: ICU03 Gender: Female Alternative Dispute Resolution Mediator: : 1945 Requested By: Harshil Hearn Order Number: [id number] Olga MD: Tor Hdz M.D. Measurements Intervals [place] Rate: 51 P: 0 IL: 0 QRS: 79 QRSD: 132 T: 68 QT: 539 QTc: 497 Interpretive Statements Sinus bradycardia with high degree AV block. Junctional escape beats and supraventricular ectopics RIGHT BUNDLE BRANCH BLOCK [120+ ms QRS DURATION, UPRIGHT V1, 40+ ms S IN I/aVL/V4/V5/V6] Compared to ECG 07/07/2025 18:06:26 Right bundle-branch block now present Atrial flutter no longer present ST (T wave) deviation no longer present Myocardial infarct finding no longer present Electronically Signed On 07-08-2025 17:45:41 CDT by Tor Hdz M.D. [email or web address] [id number]
--- NOTE | 2025-07-08 11:18 | PC.NURSE ---
Patient had several long pauses, then remains in A-fib with slow ventricular response. Patient awake, alert, and oriented. No distress noted. Blood pressure 82/41. Amiodarone IV stopped. Notified Dr. Hdz, order given to keep amiodarone off and will evaluate later to see if she needs beta fany or cardizem.
[2025-07-08] MEDS: atropine 1 mg/mL SDV 1 mL 0.5 MG IV (13:56)
--- NOTE | 2025-07-08 13:57 | ECG_ITS ---
[facility] Test Date: 2025-07-08 Pat Name: Beryl Juárez Department: Room: [facility]03 Gender: Female Manager Of Health: : 1945 Requested By: Tor Hdz Order Number: [id number] Olga MD: Tor Hdz M.D. Measurements Intervals [place] Rate: 49 P: -61 GA: 133 QRS: 81 QRSD: 133 T: 71 QT: 557 QTc: 505 Interpretive Statements JUNCTIONAL BRADYCARDIA/Ectopic atrial rhythm INTRAVENTRICULAR CONDUCTION DELAY [130+ ms QRS DURATION] PROLONGED QT INTERVAL CRITICAL TEST RESULT Compared to ECG 07/08/2025 11:09:18 Intraventricular conduction delay now present Prolonged QT interval now present Atrial fibrillation no longer present Right bundle-branch block no longer present Electronically Signed On 07-08-2025 18:01:19 CDT by Tor Hdz M.D. [id number] [id number]
--- NOTE | 2025-07-08 14:18 | PM.PN ---
Subjective Subjective: Patient was seen in the morning and doing well. Did not complain of any dizziness shortness of breath or chest pain Patient on amiodarone drip and having bradycardia but no dizziness., Likely under the effect of medications 1 fluid bolus and atropine to be given Cardizem held Cardiology on board and follow the recommendations Medications: Medication Review Details: Current Medications Acetaminophen (Acetaminophen 325 Mg Tablet) 650 mg PO Q4H PRN PRN Reason: MILD PAIN OR INCREASE TEMP Last Admin: 07/08/25 06:02 Dose: 650 mg Apixaban (Apixaban 5 Mg Tablet) 5 mg PO BID [facility] Last Admin: 07/08/25 08:45 Dose: 5 mg Atorvastatin Calcium (Atorvastatin 40 Mg Tablet) 80 mg PO DAILY [facility] Last Admin: 07/08/25 08:46 Dose: 80 mg Clopidogrel Bisulfate (Clopidogrel 75 Mg Tablet) 75 mg PO DAILY [facility] Last Admin: 07/08/25 08:46 Dose: 75 mg Docusate Sodium (Docusate Sodium 100 Mg Capsule) 100 mg PO BID [facility] Last Admin: 07/08/25 08:45 Dose: 100 mg Escitalopram Oxalate (Escitalopram 10 Mg Tablet) 10 mg PO DAILY [facility] Last Admin: 07/08/25 08:45 Dose: 10 mg Diltiazem HCl 100 mg/ Sodium (Chloride) 100 mls @ 0 mls/hr IV .Q0M [facility]; Protocol Last Titration: 07/08/25 05:30 Dose: 7.5 mg/hr, 7.5 mls/hr AMIODARONE HCL/D5W (Amiodarone 900 Mg/500 Ml-D5w) 900 mg in 500 mls @ 0 mls/hr IV .Q0M [facility]; Protocol Last Admin: 07/07/25 22:49 Dose: 1 mg/min, 33.33 mls/hr Levothyroxine Sodium (Levothyroxine 100 Mcg Tablet) 100 mcg PO DAILY [facility] Last Admin: 07/08/25 07:36 Dose: 100 mcg Losartan Potassium (Losartan 50 Mg Tablet) 50 mg PO QAM [facility] Last Admin: 07/08/25 05:24 Dose: Not Given Metoprolol Tartrate (Metoprolol Tartrate 25 Mg Tablet) 12.5 mg PO BID [facility] Last Admin: 07/08/25 08:46 Dose: 12.5 mg Multivitamins Therapeutic (Multivitamin Therapeutic Tablet) 1 tab PO DAILY [facility] Last Admin: 07/08/25 08:46 Dose: 1 tab Non-Formulary Medication (Icosapent Ethyl [Vascepa]) 0 gm .ROUTE .COMPLEX [facility] Non-Formulary Medication (Letrozole) 0 mg .ROUTE .COMPLEX [facility] Pantoprazole Sodium (Pantoprazole Dr 40 Mg Tablet) 40 mg PO BID [facility] Last Admin: 07/08/25 08:45 Dose: 40 mg Tramadol HCl (Tramadol 50 Mg Tablet) 50 mg PO BID PRN PRN Reason: PAIN Last Admin: 07/08/25 00:41 Dose: 50 mg Vitamin D (Cholecalciferol (Vitamin D3) 5,000 Unit Tablet) 5,000 unit PO DAILY [facility] Last Admin: 07/08/25 08:46 Dose: 5,000 unit Vitals/I&O/Wt Last Vital Signs Temp 97.4 F L 07/08/25 12:00 Pulse 48 L 07/08/25 12:00 Resp 15 07/08/25 12:00 BP 83/51 07/08/25 12:00 Pulse Ox 100 07/08/25 12:00 O2 Del Method Room Air 07/08/25 12:00 07/07/25 07/08/25 07/08/25 22:59 06:59 14:59 Intake Total 134.291 / 134.291 38.375 / 172.666 600.208 / 600.208 Balance 134.291 / 134.291 38.375 / 172.666 600.208 / 600.208 Weight last 48 hrs Weight 69 kg Weight 69 kg Weight 64.5 kg Weight 64.864 kg Physical Exam Narrative: General: Alert oriented x3, patient seen lying without any distress HEENT: Normocephalic, atraumatic, EOMI, breathing on room air Cardio: Irregularly irregular rhythm with normal rate, normal S1-S2, no murmurs rubs gallops, JVD normal_ Respiratory: Good bilateral air entry, no wheezes no rhonchi appreciated GI: Abdomen soft, nontender, nondistended, normoactive bowel sounds present all 4 quadrants, Neuro: Cranial nerves II to XII intact, strength 5/5, sensation 5/5, no gross neurological deficit Behavior: Appropriate and cooperative Extremities: Mild trace edema Skin: Grossly unremarkable Data 07/08/25 03:44 07/08/25 03:44 A&P Assessment and plan 1. Atrial fibrillation with RVR: Patient received amiodarone as per protocol Hold Cardizem since the patient is having bradycardia without symptoms Atropine 0.5 mg 1 dose Fluid bolus 500 mg stat dopamine in case of low bp Echo limited Follow cardiac recommendations. Monitoring and correction for electrolytes accordingly Continue youth program director Patient on apixaban 5 mg twice daily however considering patient's history of anemia without any obvious blood loss, to reduce the dose to 2.5 mg twice daily 2. Constipation, slow transit: Continue with MiraLAX and add docusate 3. Adult onset hypothyroidism: TSH is within range continue home dose of levothyroxine 100 mcg daily 4. Mixed hyperlipidemia: Continue rosuvastatin 5. TIA (transient ischemic attack): Continue rosuvastatin and Plavix. On further discussion patient has not had TIAs since she has been put on apixaban. She had a stroke in years ago and a few TIAs Follow-up with neurology at the time of discharge for medication review and further continued of care 6. Essential (primary) hypertension: Hold antihypertensives at the moment losartan and metoprolol 7. Non-Hodgkin lymphoma in remission: Stable 8. History of left breast cancer: Stable and continue all letrozole nonformulary medicine 9. Anemia due to other cause, not classified: Sent for anemia workup Trend CBC and maintain hemoglobin above 7 Apixaban to reduce the dose to 0.5 mg to avoid any overt bleeding episodes Monitor vitals Keep active type and screen PDMP PDMP Reviewed: Not Reviewed Attestations Medical Necessity Statement*: Beryl Juárez's hospital stay will require greater than 2 midnights for management of atrial fibrillation with RVR, anemia, hypotension that requires ICU monitoring and care Time Spent in Patient Care: 16 - 35 minutes (>than 50% of time spent in counselling and/or direct pt care on unit). Critical Care Time: The high probability of a clinically significant, sudden or life threatening deterioration, as referenced in this documentation, required my full and direct attention, intervention and personal management. The critical care time shown is in addition to time spent performing any reported separately billable procedures and includes the following: [x] Data and vital sign review and interpretation [x] Patient assessment, examination and intervention [x] Medication orders and management [x] Patient/Family updates as able [x] Care Coordination and Documentation. Critical Care Time (min): 35 Other Attestations: Patient condition has been discussed at length with the patient/family, I have independently reviewed the chart labs imaging and diagnostics and EKG. the goals of care and code status with the patient/family/NOK/legal senior patient account representative, and documented accordingly. The patient/family has been informed about the current condition and further plan of care. Agreed with the plan of care and understood without any language barrier. This documentation was created by [employer] process safety manager software. Every effort was made to ensure accuracy of process safety manager. Any obvious errors or omissions should be clarified with the author of the document. Coding Level of Care Code Critical Care >/= 30 minutes Diagnoses Atrial fibrillation with RVR I48.91 Constipation, slow transit K59.01 Adult onset hypothyroidism E03.8 Mixed hyperlipidemia E78.2 TIA (transient ischemic attack) G45.9 Essential (primary) hypertension I10 Non-Hodgkin lymphoma in remission C85.9A History of left breast cancer Z85.3 Anemia due to other cause, not classified D64.89 Anemia type: other cause Other causes of anemia: other cause, not classified
[2025-07-08] MEDS: DOPamine drip 400 MG/250 ML PREMIX 5.18 MG IV (14:27)
--- NOTE | 2025-07-08 14:28 | USCV_ITS ---
Beryl Juárez Age: 79 Gender: F : 1945 Exam Date: 07/08/2025 15:45 Ordering Phys: Harshil Hearn MD Technologist: Exam Location: [facility] [place] Indication: ef BP: 74 / 42 HR: Rhythm: Sinus Technical Quality: Adequate MEASUREMENTS (Male / Female) Normal Values 2D ECHO LV Diastolic Diameter PLAX 4.5 cm 4.2 - 5.9 / 3.9 - 5.3 cm IVS Diastolic Thickness 1.0 cm 0.6 - 1.0 / 0.6 - 0.9 cm IVS Systolic Thickness 2.0 cm LVPW Diastolic Thickness 1.0 cm 0.6 - 1.0 / 0.6 - 0.9 cm LVPW Systolic Thickness 1.5 cm LVOT Diameter 2.0 cm LV Ejection Fraction 2D Teich 68.8 % LV Ejection Fraction MOD 4C 68.4 % LV Ejection Fraction MOD 2C 67.2 % LV Ejection Fraction 2C AL 67.7 % LA Diameter 4.6 cm RA Systolic Volume 4C AL 44.6 ml RA Systolic Volume 4C MOD 42.3 ml Aorta at Sinotubular Diameter 2.4 cm M-MODE LA Ao Ratio MM 2.0 AV Cusp Separation MM 1.8 cm FINDINGS Left Ventricle Normal left ventricular size and systolic function, EF 55%. No gross wall motion abnormalities noted. Right Ventricle Normal right ventricular size and systolic function. Right Atrium Moderately increased right atrial size. Left Atrium Moderately increased left atrial size. Mitral Valve No gross abnormalities noted Aortic Valve No gross abnormalities noted Tricuspid Valve No gross abnormalities noted Pulmonic Valve Pulmonic valve not well visualized. Pericardium No pericardial effusion. Aorta Normal aortic annulus size. IVC Normal inferior vena cava. CONCLUSIONS Normal left ventricular size and systolic function, EF 55%. (visual). No gross wall motion abnormalities noted. Moderate biatrial enlargement No significant pericardial effusion. There is no pericardial effusion. There are no intracardiac masses. Compared to study from 11/09/2024, no significant changes in the 2D findings Dr Tor Hdz MD FACC (Electronically Signed) Final Date: 08 July 2025 16:43 S
[2025-07-08 15:11] LABS: Ferritin 11 ng/mL (15-150); Iron 18 ug/dL (37-145)
--- NOTE | 2025-07-08 15:24 | PC.NURSE ---
1335 -- Blood pressure 76/36, HR 30-40's. Notified Dr. Hdz. Order given to verify blood pressure with manual check and give 250mL NS bolus x 1. 1340 -- Manual blood pressure 78/40. Updated Dr. Hearn of patients blood pressure and HR and current orders from Dr. Hdz. 1350 -- Dr. Hdz to bedside. 0.5mg Atropine given IVP as ordered, NS bolus infusing. Order given to start dopamine at 2mcg/kg/min and run at lowest dose needed to maintain adequate blood pressure and HR until the medications are out of her system. 1400 -- Family at bedside, updated on current patient status and plan of care.
[2025-07-08 15:26] LABS: Vitamin B12 912 pg/mL (232-1245)
[2025-07-08 16:10] LABS: Total Iron Binding Capacity 430 mcg/dl; Unsaturated Iron Binding 412 ug/dL (112-347)
[2025-07-08] MEDS: norepinephrine 4 MG/250 ML BAG 7.5 MG IV (16:35)
[2025-07-08 16:57] LABS: Hematocrit 31.2 % (36-47); Hemoglobin 8.90 g/dL (11.27-16.99)
[2025-07-08] MEDS: APIXABAN 2.5 MG TABLET PO (17:32)
[2025-07-08 18:25] LABS: Troponin T (5th) Once 22 ng/L (0-10)
--- NOTE | 2025-07-08 19:38 | PC.NURSE ---
1420 -- Blood Pressure 77/40 with heart rate 40-50. Dopamine started at 2mcg/kg/min as ordered. 1600 -- Dr. Hdz called to check on patient. Notified that blood pressure is currently 106/53 and HR is in the 50s. Notified that patient remains drowsy and states that she just does not feel good. Dopamine currently infusing at 5mcg/kg/min. 1615 -- Blood pressure 67/34, patient pale and cold and clammy. Blood glucose checked - 159. Called Dr. Hearn to notify of patients change in condition, no answer. 1620 -- Notified Dr. Hdz of patients decrease in blood pressure and pale, cold, and clammy skin and that Dr. Hearn has been called. 1625 -- Dr. Hearn to bedside, assessment done. Patient remains lethargic, awakens to verbal command and follows all commands. Dr. Bray called Dr. Hdz and H&H drawn and sent to lab and order to start levophed given. 1635 -- Patient vomits green emesis and states she is still not feeling well. Levophed started. 1715 -- Dr. Hdz to bedside to check on patient. Levophed and Dopamine infusing. Order given to try to wean dopamine off and just run Levophed if possible for blood pressure and HR control. Order given to draw a troponin level. 1730 -- Patient states that she is feeling better just feels really tired. B/P curretly 122/57 and HR currently 57. 1800 -- Dr Hdz called to check on patient. Update on current vital signs. Inquiring about troponin level, notified that it is still pending and I will call him with results. 1820 -- Notified Dr. Hdz that troponin level is 22. No new orders given. 190 -- Report given to GEORGINA Graves. Dopamine weaned off.
[2025-07-09] VITALS (44 sets, daily range): BP systolic 98–146; BP diastolic 47–123; PULSE 60–131; RESP 13–33; TEMP 36.1–37.3; O2SAT 85–100
[2025-07-09 04:51] LABS: Hematocrit 30.4 % (36-47); Hemoglobin 8.20 g/dL (11.27-16.99); Mean Corpuscular HGB Conc 27.0 g/dL (30-55); Mean Corpuscular Hemoglobin 26.8 pg (27-33); Mean Corpuscular Volume 99.3 fl (85-98); Nucleated Red Blood Cells % 0.3 %; Platelet Count 402 10^3/cmm (157-399); Red Blood Count 3.06 10^6/uL (3.85-5.65); White Blood Count 13.80 10^3/uL (3.29-11.43)
[2025-07-09 05:17] LABS: Alanine Aminotransferase 14 U/L (0-33); Albumin Level 3.9 g/dL (3.5-5.2); Alkaline Phosphatase 83 U/L (35-105); Anion Gap 21.9 (5-19); Aspartate Amino Transferase 34 U/L (0-32); Blood Urea Nitrogen 25 mg/dL (8-23); Calcium 8.2 mg/dL (8.5-10.5); Carbon Dioxide 17 mmol/L (22-29); Chloride 104 mmol/L (98-107); Creatinine Clr Calc Pharmacy 33.1264; Globulin 2.4 g/dL (1.3-4.6); Glucose 106 mg/dL (65-115); Osmolality Calculated 291 mOsm/kg (285-295); Potassium 4.9 mmol/L (3.5-5.1); Sodium 138 mmol/L (136-145); Total Protein 6.3 g/dL (6.6-8.7)
[2025-07-09] MEDS: APIXABAN 2.5 MG TABLET PO ×2 (08:09→17:47)
[2025-07-09] MEDS: multivitamin therapeutic Tablet 1 TAB PO (08:09)
--- NOTE | 2025-07-09 08:35 | P.PN_ITS ---
Subjective 2 Subjective: Patient is feeling much better. She is off the inotropic's. Heart rate is in the 90s. Blood pressure is in the normal range. Telemetry shows intermittent atrial fibrillation. Medications: Medication Review Details: Current Medications Acetaminophen (Acetaminophen 325 Mg Tablet) 650 mg PO Q4H PRN PRN Reason: MILD PAIN OR INCREASE TEMP Last Admin: 07/08/25 06:02 Dose: 650 mg Apixaban (Apixaban 2.5 Mg Tablet) 2.5 mg PO BID [facility] Last Admin: 07/09/25 08:09 Dose: 2.5 mg Atorvastatin Calcium (Atorvastatin 40 Mg Tablet) 80 mg PO DAILY [facility] Last Admin: 07/09/25 08:08 Dose: 80 mg Clopidogrel Bisulfate (Clopidogrel 75 Mg Tablet) 75 mg PO DAILY [facility] Last Admin: 07/09/25 08:09 Dose: 75 mg Docusate Sodium (Docusate Sodium 100 Mg Capsule) 100 mg PO BID [facility] Last Admin: 07/09/25 08:09 Dose: 100 mg Escitalopram Oxalate (Escitalopram 10 Mg Tablet) 10 mg PO DAILY [facility] Last Admin: 07/09/25 08:08 Dose: 10 mg Dopamine HCl/Dextrose (Intropin Drip) 400 mg in 250 mls @ 12.938 mls/hr IV CONT [facility]; Protocol Last Titration: 07/08/25 19:00 Dose: 0 mcg/kg/min, 0 mls/hr Norepinephrine Bitartrate (Levophed) 4 mg in 250 mls @ 0 mls/hr IV .Q0M [facility]; Protocol Last Titration: 07/09/25 00:21 Dose: 0 mcg/min, 0 mls/hr Sodium Chloride (Sodium Chloride 0.9%) 1,000 mls @ 100 mls/hr IV .Q10H [facility] Last Admin: 07/09/25 02:47 Dose: 100 mls/hr Levothyroxine Sodium (Levothyroxine 100 Mcg Tablet) 100 mcg PO DAILY [facility] Last Admin: 07/09/25 08:08 Dose: 100 mcg Multivitamins Therapeutic (Multivitamin Therapeutic Tablet) 1 tab PO DAILY [facility] Last Admin: 07/09/25 08:09 Dose: 1 tab Non-Formulary Medication (Icosapent Ethyl [Vascepa]) 0 gm .ROUTE .COMPLEX [facility] Non-Formulary Medication (Letrozole) 0 mg .ROUTE .COMPLEX [facility] Pantoprazole Sodium (Pantoprazole Dr 40 Mg Tablet) 40 mg PO BID [facility] Last Admin: 07/09/25 08:08 Dose: 40 mg Polysaccharide Iron Complex (Iron Polysaccharide Complex 150 Mg Capsule) 150 mg PO BIDWM [facility] Last Admin: 07/09/25 08:08 Dose: 150 mg Tramadol HCl (Tramadol 50 Mg Tablet) 50 mg PO BID PRN PRN Reason: PAIN Last Admin: 07/09/25 02:47 Dose: 50 mg Vitamin D (Cholecalciferol (Vitamin D3) 5,000 Unit Tablet) 5,000 unit PO DAILY [facility] Last Admin: 07/09/25 08:09 Dose: 5,000 unit Vitals/I&O/Wt Last Vital Signs Temp 99.1 F 07/09/25 05:19 Pulse 80 07/09/25 06:00 Resp 21 H 07/09/25 06:00 BP 124/71 07/09/25 06:00 Pulse Ox 99 07/09/25 05:45 O2 Del Method Room Air 07/09/25 02:00 07/08/25 07/09/25 07/09/25 22:59 06:59 14:59 Intake Total 426.199 / 1027.011 947.355 / 1974.366 Balance 426.199 / 1027.011 947.355 / 1973.366 Weight last 48 hrs Weight 141 lb 1.533 oz Weight 141 lb 1.533 oz Weight 152 lb 1.903 oz Weight 152 lb 1.903 oz Weight 142 lb 3.17 oz Weight 143 lb Physical Exam 2 Narrative: GENERAL: The patient is alert and oriented times three. Not in any acute distress. HEENT: No significant pallor, icterus or lymphadenopathy.Oral cavity: There are no mucous membrane lesions. NECK: Trachea appears to be central. No masses noted. No JVD or thyromegaly appreciated. RESPIRATORY: Chest is symmetrical. No intercostals muscle retraction or any accessory muscle activation. There is no chest wall tenderness. Breath sounds are heard bilaterally. No rales or rhonchi heard. No evidence of any consolidation. BREASTS: Deferred. HEART: The heart sounds are normal. No S3 or S4. Short systolic murmur at the left sternal border. No diastolic murmurs. No pericardial rub ABDOMEN: No vessel pulsations or distention. No tenderness. No organomegaly appreciated. Bowel sounds are normally heard. : Deferred. RECTAL: Deferred. LYMPHATIC: No lymphadenopathy noted in the neck. EXTREMITIES: No edema or cyanosis. No clubbing. MUSCULOSKELETAL: No acute joint deformities or swelling SKIN: There are no significant rashes or ecchymosis NEUROPSYCHIATRIC: The patient is alert and oriented x3. Appears to be in a good mood. No tremors or rigidity noted. Data 07/09/25 04:30 07/09/25 04:30 Other Labs: Laboratory Last Values WBC 13.80 10^3/uL (3.29-11.43) H 07/09/25 04:30 RBC 3.06 10^6/uL (3.85-5.65) L 07/09/25 04:30 Hgb 8.20 g/dL (11.27-16.99) L 07/09/25 04:30 Hct 30.4 % (36-47) L 07/09/25 04:30 MCV 99.3 fl (85-98) H 07/09/25 04:30 MCH 26.8 pg (27-33) L 07/09/25 04:30 MCHC 27.0 g/dL (30-55) L D 07/09/25 04:30 RDW 15.0 % (12.1-15.1) 07/09/25 04:30 Plt Count 402 10^3/cmm (157-399) H 07/09/25 04:30 MPV 11.0 fL (7.4-10.4) H 07/09/25 04:30 Neut % (Auto) 78.0 % 07/09/25 04:30 Lymph % (Auto) 14.7 % 07/09/25 04:30 [place] % (Auto) 6.1 % 07/09/25 04:30 Eos % (Auto) 0.5 % 07/09/25 04:30 Baso % (Auto) 0.3 % 07/09/25 04:30 Neut # (Auto) 10.77 10^3/uL (1.8-7.7) H 07/09/25 04:30 Lymph # (Auto) 2.0 10^3/uL (0.8-4.8) 07/09/25 04:30 [place] # (Auto) 0.8 10^3/uL (0.2-0.9) 07/09/25 04:30 Eos # (Auto) 0.1 10^3/uL (0.0-0.8) 07/09/25 04:30 Baso # (Auto) 0.0 10^3/uL (0.0-0.1) 07/09/25 04:30 Nucleated RBC % (auto) 0.3 % 07/09/25 04:30 Nucleated RBCs # 0.0 /100WBC 07/09/25 04:30 PT 19.20 SECONDS (12.1-14.9) H 07/07/25 17:41 INR 1.52 (0.8-1.2) H 07/07/25 17:41 APTT 37.7 SECONDS (23.9-36.7) H 07/07/25 17:41 Sodium 138 mmol/L (136-145) 07/09/25 04:30 Potassium 4.9 mmol/L (3.5-5.1) 07/09/25 04:30 Chloride 104 mmol/L (98-107) 07/09/25 04:30 Carbon Dioxide 17 mmol/L (22-29) L 07/09/25 04:30 Anion Gap 21.9 (5-19) H 07/09/25 04:30 BUN 25 mg/dL (8-23) H 07/09/25 04:30 Creatinine 1.5 mg/dL (0.5-0.9) H 07/09/25 04:30 GFR Calculation Not Reportable 07/09/25 04:30 Glucose 106 mg/dL (65-115) 07/09/25 04:30 POC Glucose 159 mg/dL (70-110) H 07/08/25 16:06 Calculated Osmolality 291 mOsm/kg (285-295) 07/09/25 04:30 Calcium 8.2 mg/dL (8.5-10.5) L 07/09/25 04:30 Magnesium 2.1 mg/dL (1.7-2.3) 07/08/25 03:44 Iron 18 ug/dL (37-145) L 07/08/25 03:44 TIBC 430 mcg/dl 07/08/25 03:44 % Saturation 4.1 % (20-50) L 07/08/25 03:44 Unsat Iron Binding 412 ug/dL (112-347) H 07/08/25 03:44 Ferritin 11 ng/mL (15-150) L 07/08/25 03:44 Total Bilirubin 0.7 mg/dL (0.15-1.2) 07/09/25 04:30 AST 34 U/L (0-32) H 07/09/25 04:30 ALT 14 U/L (0-33) 07/09/25 04:30 Alkaline Phosphatase 83 U/L (35-105) 07/09/25 04:30 Troponin T 5th Gen ng/L 22 ng/L (0-10) H 07/08/25 17:24 Troponin T Baseline 15 ng/L (0-10) H 07/07/25 17:41 Troponin T 120 Minute 15.42 ng/L (0-10) H 07/07/25 20:12 Delta Troponin T 0.42 ABS# (0-10) 07/07/25 20:12 Troponin T Hi Sens 6Hr 16.42 ng/L (0-10) H 07/08/25 00:05 Troponin T Hi Sens 6Hr Delta 1.42 ng/L (0-12) 07/08/25 00:05 NT-Pro-B Natriuret Pep 4798 pg/mL (0-450) H 07/07/25 17:41 Total Protein 6.3 g/dL (6.6-8.7) L 07/09/25 04:30 Albumin 3.9 g/dL (3.5-5.2) 07/09/25 04:30 Globulin 2.4 g/dL (1.3-4.6) 07/09/25 04:30 Vitamin B12 912 pg/mL (232-1245) 07/08/25 03:44 Folate > 20.0 ng/mL (4.8-37.3) 07/07/25 17:41 TSH 1.76 uIU/mL (0.27-4.20) 07/07/25 17:41 A&P Assessment and plan 1. Bradycardia: Most likely related to combination of amiodarone/Cardizem/beta-fany. All these medications are discontinued at this time. Her heart rate seems to be slowly coming up. The bradycardia is currently resolved 2. Hypotension, unspecified hypotension type: Currently the patient is normotensive. 3. Atrial fibrillation with RVR: May restart the metoprolol 50 mg p.o. twice daily. The dose may be gradually increased. 4. Mixed hyperlipidemia: Continue on the current medication 5. Anemia due to other cause, not classified: Patient seems to iron-deficiency anemia. Management as per the primary. The hemoglobin seems to be fairly stable 6. TIA (transient ischemic attack): The Plavix may be continued for the time being. 7. Iron deficiency anemia, unspecified iron deficiency anemia type: As mentioned above Plan: patient may be closely monitored on the telemetry today. Metoprolol 50 mg p.o. twice daily. The dose may be increased. Other medications as it is. PDMP PDMP Reviewed: Not Reviewed Attestations 2 Medical Necessity Statement*: Need to be monitored on telemetry today. Possible discharge home tomorrow Coding Level of Care Code 91146 Diagnoses Bradycardia R00.1 Hypotension, unspecified hypotension type I95.9 Hypotension type: unspecified hypotension type Atrial fibrillation with RVR I48.91 Mixed hyperlipidemia E78.2 Anemia due to other cause, not classified D64.89 Anemia type: other cause Other causes of anemia: other cause, not classified TIA (transient ischemic attack) G45.9 Iron deficiency anemia, unspecified iron deficiency anemia type D50.9 Iron deficiency anemia type: unspecified iron deficiency
--- NOTE | 2025-07-09 13:40 | PC.NURSE ---
IV fluids were paused while pt up ad deyanira puttering around her room to prevent accidental pulling out of IV cath.
--- NOTE | 2025-07-09 14:21 | PM.PN ---
Subjective Subjective: Patient was seen in the morning and was doing better. In 24 hours the patient was having anemia that was further worked up and showed iron deficiency started on iron tablets. The patient was hypotensive and bradycardic that was likely under the effect of amiodarone and Cardizem drips that she was getting. Those were held and she received dopamine which did not improve further heart rate and blood pressure. Nor epi was added at a lower dose that further improved her condition. In the last 24 hours no further infusions are required and the patient was stable. The patient voiced no concerns in the morning and was feeling much better Medications: Medication Review Details: Current Medications Acetaminophen (Acetaminophen 325 Mg Tablet) 650 mg PO Q4H PRN PRN Reason: MILD PAIN OR INCREASE TEMP Last Admin: 07/08/25 06:02 Dose: 650 mg Apixaban (Apixaban 2.5 Mg Tablet) 2.5 mg PO BID [facility] Last Admin: 07/09/25 08:09 Dose: 2.5 mg Atorvastatin Calcium (Atorvastatin 40 Mg Tablet) 80 mg PO DAILY [facility] Last Admin: 07/09/25 08:08 Dose: 80 mg Clopidogrel Bisulfate (Clopidogrel 75 Mg Tablet) 75 mg PO DAILY [facility] Last Admin: 07/09/25 08:09 Dose: 75 mg Docusate Sodium (Docusate Sodium 100 Mg Capsule) 100 mg PO BID [facility] Last Admin: 07/09/25 08:09 Dose: 100 mg Escitalopram Oxalate (Escitalopram 10 Mg Tablet) 10 mg PO DAILY [facility] Last Admin: 07/09/25 08:08 Dose: 10 mg Dopamine HCl/Dextrose (Intropin Drip) 400 mg in 250 mls @ 12.938 mls/hr IV CONT [facility]; Protocol Last Titration: 07/08/25 19:00 Dose: 0 mcg/kg/min, 0 mls/hr Norepinephrine Bitartrate (Levophed) 4 mg in 250 mls @ 0 mls/hr IV .Q0M [facility]; Protocol Last Titration: 07/09/25 00:21 Dose: 0 mcg/min, 0 mls/hr Sodium Chloride (Sodium Chloride 0.9%) 1,000 mls @ 100 mls/hr IV .Q10H [facility] Last Admin: 07/09/25 02:47 Dose: 100 mls/hr Levothyroxine Sodium (Levothyroxine 100 Mcg Tablet) 100 mcg PO DAILY [facility] Last Admin: 07/09/25 08:08 Dose: 100 mcg Multivitamins Therapeutic (Multivitamin Therapeutic Tablet) 1 tab PO DAILY [facility] Last Admin: 07/09/25 08:09 Dose: 1 tab Non-Formulary Medication (Icosapent Ethyl [Vascepa]) 0 gm .ROUTE .COMPLEX [facility] Non-Formulary Medication (Letrozole) 0 mg .ROUTE .COMPLEX [facility] Pantoprazole Sodium (Pantoprazole Dr 40 Mg Tablet) 40 mg PO BID [facility] Last Admin: 07/09/25 08:08 Dose: 40 mg Polysaccharide Iron Complex (Iron Polysaccharide Complex 150 Mg Capsule) 150 mg PO BIDWM [facility] Last Admin: 07/09/25 08:08 Dose: 150 mg Tramadol HCl (Tramadol 50 Mg Tablet) 50 mg PO BID PRN PRN Reason: PAIN Last Admin: 07/09/25 02:47 Dose: 50 mg Vitamin D (Cholecalciferol (Vitamin D3) 5,000 Unit Tablet) 5,000 unit PO DAILY [facility] Last Admin: 07/09/25 08:09 Dose: 5,000 unit Vitals/I&O/Wt Last Vital Signs Temp 98.8 F 07/09/25 08:00 Pulse 74 07/09/25 10:00 Resp 22 H 07/09/25 10:00 BP 119/59 07/09/25 10:00 Pulse Ox 97 07/09/25 10:00 O2 Del Method Room Air 07/09/25 10:00 07/08/25 07/09/25 07/09/25 22:59 06:59 14:59 Intake Total 426.199 / 1027.011 947.355 / 7246.554 3881.333 / 1313.333 Balance 426.199 / 1027.011 947.355 / 5900.805 1906.333 / 1313.333 Weight last 48 hrs Weight 64 kg Weight 64 kg Weight 69 kg Weight 69 kg Weight 64.5 kg Weight 64.864 kg Physical Exam Narrative: General: Alert oriented x3, patient seen lying without any distress HEENT: Normocephalic, atraumatic, EOMI, breathing on room air Cardio: Irregularly irregular rhythm with normal rate, normal S1-S2, no murmurs rubs gallops, JVD normal_ Respiratory: Good bilateral air entry, no wheezes no rhonchi appreciated GI: Abdomen soft, nontender, nondistended, normoactive bowel sounds present all 4 quadrants, Neuro: Cranial nerves II to XII intact, strength 5/5, sensation 5/5, no gross neurological deficit Behavior: Appropriate and cooperative Extremities: Mild trace edema, she has mild bruise on her right foot dorsal surface secondary to trauma in the past however currently better and adequate perfusion observed Skin: Grossly unremarkable Data 07/09/25 04:30 07/09/25 04:30 A&P Assessment and plan 1. Atrial fibrillation with RVR: Patient received amiodarone and Cardizem as protocol, had bradycardia and hypotension that resolved after further intervention that is atropine/fluid bolus/dopamine and nor epi in the past 24 hours. Currently off any infusion Continue metoprolol 50 mg twice daily as per cardio recommendation verbally provided Echo limited Did not show any regional wall motion abnormalities and EF of 55% Monitoring and correction for electrolytes accordingly Continue compliance monitor Patient on apixaban 5 mg twice daily however considering patient's history of anemia without any obvious blood loss, to reduce the dose to 2.5 mg twice daily 2. Constipation, slow transit: Continue with MiraLAX and add docusate 3. Adult onset hypothyroidism: TSH is within range continue home dose of levothyroxine 100 mcg daily 4. Mixed hyperlipidemia: Continue rosuvastatin 5. TIA (transient ischemic attack): Continue rosuvastatin and Plavix. On further discussion patient has not had TIAs since she has been put on apixaban. She had a stroke in years ago and a few TIAs Follow-up with neurology at the time of discharge for medication review and further continued of care 6. Essential (primary) hypertension: Hold antihypertensives at the moment losartan and metoprolol 7. Non-Hodgkin lymphoma in remission: Stable 8. History of left breast cancer: Stable and continue all letrozole nonformulary medicine 9. Anemia due to other cause, not classified: Iron deficiency anemia started on iron replacement Trend CBC and maintain hemoglobin above 7 Apixaban to reduce the dose to 0.5 mg to avoid any overt bleeding episodes Monitor vitals Keep active type and screen Patient will benefit from primary care follow-up at the time of discharge and considering colonoscopy after discussing risks and benefits at her age. PDMP PDMP Reviewed: Not Reviewed Attestations Medical Necessity Statement*: Beryl Juárez's hospital stay will require greater than 2 midnights for management of atrial fibrillation with RVR, anemia, Time Spent in Patient Care: 16 - 35 minutes Critical Care Time: The high probability of a clinically significant, sudden or life threatening deterioration, as referenced in this documentation, required my full and direct attention, intervention and personal management. The critical care time shown is in addition to time spent performing any reported separately billable procedures and includes the following: [x] Data and vital sign review and interpretation [x] Patient assessment, examination and intervention [x] Medication orders and management [x] Patient/Family updates as able [x] Care Coordination and Documentation. Critical Care Time (min): 35 Critical Care Time (min): 35 Other Attestations: Patient condition has been discussed at length with the patient/family, I have independently reviewed the chart labs imaging/diagnostics/EKG. the goals of care and code status with the patient/family/NOK/legal indirect sales representative, and documented accordingly. The patient/family has been informed about the current condition and further plan of care. Agreed with the plan of care and understood without any language barrier. Every effort was made to ensure accuracy of wheel adjuster. Any obvious errors or omissions should be clarified with the author of the document. Coding Level of Care Code Critical Care >/= 30 minutes Diagnoses Atrial fibrillation with RVR I48.91 Constipation, slow transit K59.01 Adult onset hypothyroidism E03.8 Mixed hyperlipidemia E78.2 TIA (transient ischemic attack) G45.9 Essential (primary) hypertension I10 Non-Hodgkin lymphoma in remission C85.9A History of left breast cancer Z85.3 Anemia due to other cause, not classified D64.89 Anemia type: other cause Other causes of anemia: other cause, not classified
--- NOTE | 2025-07-09 19:27 | PC.NURSE ---
Shift summary: Pt has been up ad deyanira in her room today. She has puttered to her closet, to BSC and back and forth bed to chair. Pt stated she always get dizzy when she first gets out of bed but she knows she needs to take her time at it. No ectopy or arrhythmias noted on monitor. She did report back pain this afternoon, we decided to try acetaminophen and a warm blanket on her back so the Tramadol could be used closer to bedtime. It helped provide relief. SHe has had a good appetite,eating most of her meals. She has been to BSC several times. Tiny hard stool noted. Urine output of at least 850ml recorded. Wheeled sittting walker delivered to her room today. Family has been attentive, visiting for several hours.
--- NOTE | 2025-07-09 21:05 | PC.NURSE ---
arrhythmia Contacted Dr. Banda in regards to patient sustaining afib at a rate of 130s-140s, received telephone orders at this time for a one time dose of 150mg Amiodarone IVP and 200mg Amiodarone oral BID. MAR reflected to show orders.
[2025-07-09] MEDS: amiodarone 50 mg/mL SDV 3 mL 150 MG IVP (21:39)
[2025-07-10] VITALS (20 sets, daily range): BP systolic 103–157; BP diastolic 47–85; PULSE 52–66; RESP 14–25; TEMP 37; O2SAT 92–100
[2025-07-10 04:03] LABS: Hematocrit 25.2 % (36-47); Hemoglobin 7.30 g/dL (11.27-16.99); Mean Corpuscular HGB Conc 29.0 g/dL (30-55); Mean Corpuscular Hemoglobin 26.3 pg (27-33); Mean Corpuscular Volume 90.6 fl (85-98); Nucleated Red Blood Cells % 0.2 %; Platelet Count 334 10^3/cmm (157-399); Red Blood Count 2.78 10^6/uL (3.85-5.65); White Blood Count 9.33 10^3/uL (3.29-11.43)
[2025-07-10 04:31] LABS: Alanine Aminotransferase 16 U/L (0-33); Albumin Level 3.6 g/dL (3.5-5.2); Alkaline Phosphatase 74 U/L (35-105); Anion Gap 17.5 (5-19); Aspartate Amino Transferase 30 U/L (0-32); Blood Urea Nitrogen 20 mg/dL (8-23); Calcium 8.4 mg/dL (8.5-10.5); Carbon Dioxide 21 mmol/L (22-29); Chloride 110 mmol/L (98-107); Creatinine Clr Calc Pharmacy 41.8990; Globulin 2.0 g/dL (1.3-4.6); Glucose 126 mg/dL (65-115); Osmolality Calculated 302 mOsm/kg (285-295); Potassium 4.5 mmol/L (3.5-5.1); Sodium 144 mmol/L (136-145); Total Protein 5.6 g/dL (6.6-8.7)
[2025-07-10] MEDS: multivitamin therapeutic Tablet 1 TAB PO (08:06)
[2025-07-10] MEDS: APIXABAN 2.5 MG TABLET PO (08:07)
--- NOTE | 2025-07-10 08:51 | P.PN_ITS ---
Subjective 2 Subjective: Patient was seen in the morning, overnight patient had episode of atrial fibrillation and was given amiodarone Started on oral amiodarone currently in sinus rhythm and heart rate controlled the patient did not report any obvious source of bleeding. currently stable however cbc showing down trending of the hb Medications: Medication Review Details: Current Medications Acetaminophen (Acetaminophen 325 Mg Tablet) 650 mg PO Q4H PRN PRN Reason: MILD PAIN OR INCREASE TEMP Last Admin: 07/08/25 06:02 Dose: 650 mg Apixaban (Apixaban 2.5 Mg Tablet) 2.5 mg PO BID [facility] Last Admin: 07/09/25 08:09 Dose: 2.5 mg Atorvastatin Calcium (Atorvastatin 40 Mg Tablet) 80 mg PO DAILY [facility] Last Admin: 07/09/25 08:08 Dose: 80 mg Clopidogrel Bisulfate (Clopidogrel 75 Mg Tablet) 75 mg PO DAILY [facility] Last Admin: 07/09/25 08:09 Dose: 75 mg Docusate Sodium (Docusate Sodium 100 Mg Capsule) 100 mg PO BID [facility] Last Admin: 07/09/25 08:09 Dose: 100 mg Escitalopram Oxalate (Escitalopram 10 Mg Tablet) 10 mg PO DAILY [facility] Last Admin: 07/09/25 08:08 Dose: 10 mg Dopamine HCl/Dextrose (Intropin Drip) 400 mg in 250 mls @ 12.938 mls/hr IV CONT [facility]; Protocol Last Titration: 07/08/25 19:00 Dose: 0 mcg/kg/min, 0 mls/hr Norepinephrine Bitartrate (Levophed) 4 mg in 250 mls @ 0 mls/hr IV .Q0M [facility]; Protocol Last Titration: 07/09/25 00:21 Dose: 0 mcg/min, 0 mls/hr Sodium Chloride (Sodium Chloride 0.9%) 1,000 mls @ 100 mls/hr IV .Q10H [facility] Last Admin: 07/09/25 02:47 Dose: 100 mls/hr Levothyroxine Sodium (Levothyroxine 100 Mcg Tablet) 100 mcg PO DAILY [facility] Last Admin: 07/09/25 08:08 Dose: 100 mcg Multivitamins Therapeutic (Multivitamin Therapeutic Tablet) 1 tab PO DAILY [facility] Last Admin: 07/09/25 08:09 Dose: 1 tab Non-Formulary Medication (Icosapent Ethyl [Vascepa]) 0 gm .ROUTE .COMPLEX [facility] Non-Formulary Medication (Letrozole) 0 mg .ROUTE .COMPLEX [facility] Pantoprazole Sodium (Pantoprazole Dr 40 Mg Tablet) 40 mg PO BID [facility] Last Admin: 07/09/25 08:08 Dose: 40 mg Polysaccharide Iron Complex (Iron Polysaccharide Complex 150 Mg Capsule) 150 mg PO BIDWM [facility] Last Admin: 07/09/25 08:08 Dose: 150 mg Tramadol HCl (Tramadol 50 Mg Tablet) 50 mg PO BID PRN PRN Reason: PAIN Last Admin: 07/09/25 02:47 Dose: 50 mg Vitamin D (Cholecalciferol (Vitamin D3) 5,000 Unit Tablet) 5,000 unit PO DAILY [facility] Last Admin: 07/09/25 08:09 Dose: 5,000 unit Vitals/I&O/Wt Last Vital Signs Temp 98.6 F 07/10/25 00:00 Pulse 60 07/10/25 08:00 Resp 18 07/10/25 08:00 BP 157/85 07/10/25 08:00 Pulse Ox 95 07/10/25 08:00 O2 Del Method Room Air 07/10/25 08:00 07/09/25 07/10/25 07/10/25 22:59 06:59 14:59 Intake Total 486.667 / 2160.000 Output Total 100 / 850 Balance 386.667 / 1310.000 Weight last 48 hrs Weight 67.5 kg Weight 64 kg Weight 64 kg Physical Exam 2 Narrative: General: Alert oriented x3, patient seen lying without any distress and reading her novel with her breakfast HEENT: Normocephalic, atraumatic, EOMI, breathing on room air Cardio: Irregularly irregular rhythm with normal rate, normal S1-S2, no murmurs rubs gallops, JVD normal_ Respiratory: Good bilateral air entry, no wheezes no rhonchi appreciated GI: Abdomen soft, nontender, nondistended, normoactive bowel sounds present all 4 quadrants, Neuro: Cranial nerves II to XII intact, strength 5/5, sensation 5/5, no gross neurological deficit Behavior: Appropriate and cooperative Extremities: Mild trace edema without any change from the time of admission Skin: Grossly unremarkable Data 07/10/25 03:27 07/10/25 03:27 A&P Assessment and plan 1. Atrial fibrillation with RVR: Patient received amiodarone and Cardizem as protocol, had bradycardia and hypotension that resolved after further intervention that is atropine/fluid bolus/dopamine and nor epi Overnight patient had overnight atrial fibrillation with RVR requiring amiodarone 150 mg once and started on amiodarone 200 mg twice daily overnight Cardiology input for further management Continue metoprolol 50 mg twice daily as per cardio recommendation verbally provided Echo limited Did not show any regional wall motion abnormalities and EF of 55% Monitoring and correction for electrolytes accordingly Continue claim manager Patient on apixaban 5 mg twice daily however considering patient's history of anemia without any obvious blood loss, to reduce the dose to 2.5 mg twice daily 2. Constipation, slow transit: Continue with MiraLAX and add docusate 3. Adult onset hypothyroidism: TSH is within range continue home dose of levothyroxine 100 mcg daily 4. Mixed hyperlipidemia: Continue rosuvastatin 5. TIA (transient ischemic attack): Continue rosuvastatin and Plavix. On further discussion patient has not had TIAs since she has been put on apixaban. She had a stroke in years ago and a few TIAs Follow-up with neurology at the time of discharge for medication review and further continued of care 6. Essential (primary) hypertension: Hold antihypertensives at the moment losartan and metoprolol 7. Non-Hodgkin lymphoma in remission: Stable 8. History of left breast cancer: Stable and continue all letrozole nonformulary medicine 9. Anemia due to other cause, not classified: Iron deficiency anemia started on iron replacement Trend CBC and maintain hemoglobin above 7 CBC repeat showed stable but her hb has been trending down Apixaban to reduce the dose to 2.5 mg to avoid any overt bleeding episodes Monitor vitals Keep active type and screen CTA pelvis and abd, considering if any acute intervention is needed, then to perform in this admission otherwise, Patient will benefit from primary care follow-up at the time of discharge and considering colonoscopy after discussing risks and benefits at her age. PDMP PDMP Reviewed: Not Reviewed Attestations 2 Medical Necessity Statement*: Beryl Juárez's hospital stay will require greater than 2 midnights for management of atrial fibrillation with RVR, anemia, Time Spent in Patient Care: 16 - 35 minutes (>than 50% of time sp ent in counselling and/or direct pt care on unit) . Critical Care Time: The high probability of a clinically significant, sudden or life threatening deterioration, as referenced in this documentation, required my full and direct attention, intervention and personal management. The critical care time shown is in addition to time spent performing any reported separately billable procedures and includes the following: [x] Data and vital sign review and interpretation [x] Patient assessment, examination and intervention [x] Medication orders and management [x] Patient/Family updates as able [x] Care Coordination and Documentation. Critical Care Time (min): 35 Other Attestations: Patient condition has been discussed at length with the patient/family, I have independently reviewed the chart labs imaging/diagnostics/EKG. the goals of care and code status with the patient/family/NOK/legal mortician supplies sales representative, and documented accordingly. The patient/family has been informed about the current condition and further plan of care. Agreed with the plan of care and understood without any language barrier. Every effort was made to ensure accuracy of dinkey brakeman. Any obvious errors or omissions should be clarified with the author of the document. Coding Level of Care Code Critical Care >/= 30 minutes Diagnoses Atrial fibrillation with RVR I48.91 Constipation, slow transit K59.01 Adult onset hypothyroidism E03.8 Mixed hyperlipidemia E78.2 TIA (transient ischemic attack) G45.9 Essential (primary) hypertension I10 Non-Hodgkin lymphoma in remission C85.9A History of left breast cancer Z85.3 Anemia due to other cause, not classified D64.89 Anemia type: other cause Other causes of anemia: other cause, not classified
--- NOTE | 2025-07-10 09:40 | PM.PN ---
Subjective Subjective: Patient seems to be in sinus rhythm. Continues to feel okay. Ambulating on telemetry well. No chest pain or chest tightness. No unusual shortness of breath. Medications: Medication Review Details: Current Medications Acetaminophen (Acetaminophen 325 Mg Tablet) 650 mg PO Q4H PRN PRN Reason: MILD PAIN OR INCREASE TEMP Last Admin: 07/09/25 17:12 Dose: 650 mg Amiodarone HCl (Amiodarone 200 Mg Tablet) 200 mg PO BID [facility] Last Admin: 07/10/25 08:07 Dose: 200 mg Apixaban (Apixaban 2.5 Mg Tablet) 2.5 mg PO BID [facility] Last Admin: 07/10/25 08:07 Dose: 2.5 mg Atorvastatin Calcium (Atorvastatin 40 Mg Tablet) 80 mg PO DAILY [facility] Last Admin: 07/10/25 08:07 Dose: 80 mg Clopidogrel Bisulfate (Clopidogrel 75 Mg Tablet) 75 mg PO DAILY [facility] Last Admin: 07/10/25 08:07 Dose: 75 mg Docusate Sodium (Docusate Sodium 100 Mg Capsule) 100 mg PO BID [facility] Last Admin: 07/10/25 08:06 Dose: 100 mg Escitalopram Oxalate (Escitalopram 10 Mg Tablet) 10 mg PO DAILY [facility] Last Admin: 07/10/25 08:06 Dose: 10 mg Dopamine HCl/Dextrose (Intropin Drip) 400 mg in 250 mls @ 12.938 mls/hr IV CONT [facility]; Protocol Last Admin: 07/09/25 16:34 Dose: Not Given Norepinephrine Bitartrate (Levophed) 4 mg in 250 mls @ 0 mls/hr IV .Q0M [facility]; Protocol Last Titration: 07/09/25 17:09 Dose: Infused Levothyroxine Sodium (Levothyroxine 100 Mcg Tablet) 100 mcg PO DAILY [facility] Last Admin: 07/10/25 08:07 Dose: 100 mcg Metoprolol Tartrate (Metoprolol Tartrate 50 Mg Tablet) 50 mg PO BID@0900,2100 [facility] Last Admin: 07/10/25 08:06 Dose: 50 mg Multivitamins Therapeutic (Multivitamin Therapeutic Tablet) 1 tab PO DAILY [facility] Last Admin: 07/10/25 08:06 Dose: 1 tab Non-Formulary Medication (Icosapent Ethyl [Vascepa]) 0 gm .ROUTE .COMPLEX INDIRA Non-Formulary Medication (Letrozole) 0 mg .ROUTE .COMPLEX INDIRA Pantoprazole Sodium (Pantoprazole Dr 40 Mg Tablet) 40 mg PO BID [facility] Last Admin: 07/10/25 08:06 Dose: 40 mg Polysaccharide Iron Complex (Iron Polysaccharide Complex 150 Mg Capsule) 150 mg PO BIDWM [facility] Last Admin: 07/10/25 07:35 Dose: 150 mg Tramadol HCl (Tramadol 50 Mg Tablet) 50 mg PO BID PRN PRN Reason: PAIN Last Admin: 07/10/25 07:35 Dose: 50 mg Vitamin D (Cholecalciferol (Vitamin D3) 5,000 Unit Tablet) 5,000 unit PO DAILY [facility] Last Admin: 07/10/25 08:06 Dose: 5,000 unit Vitals/I&O/Wt Last Vital Signs Temp 98.6 F 07/10/25 00:00 Pulse 60 07/10/25 08:00 Resp 18 07/10/25 08:00 BP 157/85 07/10/25 08:00 Pulse Ox 95 07/10/25 08:00 O2 Del Method Room Air 07/10/25 08:00 07/09/25 07/10/25 07/10/25 22:59 06:59 14:59 Intake Total 486.667 / 2160.000 235 / 235 Output Total 100 / 850 350 / 350 Balance 386.667 / 1310.000 -115 / -115 Weight last 48 hrs Weight 148 lb 12.992 oz Weight 141 lb 1.533 oz Weight 141 lb 1.533 oz Physical Exam Narrative: GENERAL: The patient is alert and oriented times three. Not in any acute distress. HEENT: No significant pallor, icterus or lymphadenopathy.Oral cavity: There are no mucous membrane lesions. NECK: Trachea appears to be central. No masses noted. No JVD or thyromegaly appreciated. RESPIRATORY: Chest is symmetrical. No intercostals muscle retraction or any accessory muscle activation. There is no chest wall tenderness. Breath sounds are heard bilaterally. No rales or rhonchi heard. No evidence of any consolidation. BREASTS: Deferred. HEART: The heart sounds are normal. No S3 or S4. Short systolic murmur at the left sternal border. No diastolic murmurs. No pericardial rub ABDOMEN: No vessel pulsations or distention. No tenderness. No organomegaly appreciated. Bowel sounds are normally heard. : Deferred. RECTAL: Deferred. LYMPHATIC: No lymphadenopathy noted in the neck. EXTREMITIES: No edema or cyanosis. No clubbing. MUSCULOSKELETAL: No acute joint deformities or swelling SKIN: There are no significant rashes or ecchymosis NEUROPSYCHIATRIC: The patient is alert and oriented x3. Appears to be in a good mood. No tremors or rigidity noted. Data 07/10/25 10:59 07/10/25 03:27 Other Labs: Laboratory Last Values WBC 9.33 10^3/uL (3.29-11.43) 07/10/25 03:27 RBC 2.78 10^6/uL (3.85-5.65) L 07/10/25 03:27 Hgb 7.30 g/dL (11.27-16.99) L 07/10/25 03:27 Hct 25.2 % (36-47) L 07/10/25 03:27 MCV 90.6 fl (85-98) D 07/10/25 03:27 MCH 26.3 pg (27-33) L 07/10/25 03:27 MCHC 29.0 g/dL (30-55) L D 07/10/25 03:27 RDW 15.1 % (12.1-15.1) 07/10/25 03:27 Plt Count 334 10^3/cmm (157-399) 07/10/25 03:27 MPV 10.9 fL (7.4-10.4) H 07/10/25 03:27 Neut % (Auto) 69.1 % 07/10/25 03:27 Lymph % (Auto) 18.9 % 07/10/25 03:27 [place] % (Auto) 8.7 % 07/10/25 03:27 Eos % (Auto) 2.6 % 07/10/25 03:27 Baso % (Auto) 0.5 % 07/10/25 03:27 Neut # (Auto) 6.45 10^3/uL (1.8-7.7) 07/10/25 03:27 Lymph # (Auto) 1.8 10^3/uL (0.8-4.8) 07/10/25 03:27 [place] # (Auto) 0.8 10^3/uL (0.2-0.9) 07/10/25 03:27 Eos # (Auto) 0.2 10^3/uL (0.0-0.8) 07/10/25 03:27 Baso # (Auto) 0.1 10^3/uL (0.0-0.1) 07/10/25 03:27 Nucleated RBC % (auto) 0.2 % 07/10/25 03:27 Nucleated RBCs # 0.0 /100WBC 07/10/25 03:27 PT 19.20 SECONDS (12.1-14.9) H 07/07/25 17:41 INR 1.52 (0.8-1.2) H 07/07/25 17:41 APTT 37.7 SECONDS (23.9-36.7) H 07/07/25 17:41 Sodium 144 mmol/L (136-145) 07/10/25 03:27 Potassium 4.5 mmol/L (3.5-5.1) 07/10/25 03:27 Chloride 110 mmol/L (98-107) H 07/10/25 03:27 Carbon Dioxide 21 mmol/L (22-29) L 07/10/25 03:27 Anion Gap 17.5 (5-19) 07/10/25 03:27 BUN 20 mg/dL (8-23) 07/10/25 03:27 Creatinine 1.1 mg/dL (0.5-0.9) H 07/10/25 03:27 GFR Calculation Not Reportable 07/10/25 03:27 Glucose 126 mg/dL (65-115) H 07/10/25 03:27 POC Glucose 159 mg/dL (70-110) H 07/08/25 16:06 Calculated Osmolality 302 mOsm/kg (285-295) H 07/10/25 03:27 Calcium 8.4 mg/dL (8.5-10.5) L 07/10/25 03:27 Magnesium 2.1 mg/dL (1.7-2.3) 07/08/25 03:44 Iron 18 ug/dL (37-145) L 07/08/25 03:44 TIBC 430 mcg/dl 07/08/25 03:44 % Saturation 4.1 % (20-50) L 07/08/25 03:44 Unsat Iron Binding 412 ug/dL (112-347) H 07/08/25 03:44 Ferritin 11 ng/mL (15-150) L 07/08/25 03:44 Total Bilirubin 0.3 mg/dL (0.15-1.2) 07/10/25 03:27 AST 30 U/L (0-32) 07/10/25 03:27 ALT 16 U/L (0-33) 07/10/25 03:27 Alkaline Phosphatase 74 U/L (35-105) 07/10/25 03:27 Troponin T 5th Gen ng/L 22 ng/L (0-10) H 07/08/25 17:24 Troponin T Baseline 15 ng/L (0-10) H 07/07/25 17:41 Troponin T 120 Minute 15.42 ng/L (0-10) H 07/07/25 20:12 Delta Troponin T 0.42 ABS# (0-10) 07/07/25 20:12 Troponin T Hi Sens 6Hr 16.42 ng/L (0-10) H 07/08/25 00:05 Troponin T Hi Sens 6Hr Delta 1.42 ng/L (0-12) 07/08/25 00:05 NT-Pro-B Natriuret Pep 4798 pg/mL (0-450) H 07/07/25 17:41 Total Protein 5.6 g/dL (6.6-8.7) L 07/10/25 03:27 Albumin 3.6 g/dL (3.5-5.2) 07/10/25 03:27 Globulin 2.0 g/dL (1.3-4.6) 07/10/25 03:27 Vitamin B12 912 pg/mL (232-1245) 07/08/25 03:44 Folate > 20.0 ng/mL (4.8-37.3) 07/07/25 17:41 TSH 1.76 uIU/mL (0.27-4.20) 07/07/25 17:41 A&P Assessment and plan 1. Bradycardia: currently the heart rate is in normal range. Continue on the current medications. 2. Atrial fibrillation with RVR: May restart the metoprolol 50 mg p.o. twice daily. The dose may be gradually increased. The amiodarone 200 mg p.o. daily may be continued. 3. Mixed hyperlipidemia: Continue on the current medication 4. Anemia due to other cause, not classified: Patient seems to iron-deficiency anemia. Management as per the primary. The hemoglobin seems to be fairly stable 5. TIA (transient ischemic attack): The Plavix may be continued for the time being. 6. Iron deficiency anemia, unspecified iron deficiency anemia type: As mentioned above Plan: Patient's cardiac status seems to be stable at this point. If she continues to remain stable, may be discharged home from a cardiac standpoint Appointment the [facility] in 2 weeks PDMP PDMP Reviewed: Not Reviewed Attestations Medical Necessity Statement*: Deferred to the primary Coding Level of Care Code 82012 Diagnoses Bradycardia R00.1 Atrial fibrillation with RVR I48.91 Mixed hyperlipidemia E78.2 Anemia due to other cause, not classified D64.89 Anemia type: other cause Other causes of anemia: other cause, not classified TIA (transient ischemic attack) G45.9 Iron deficiency anemia, unspecified iron deficiency anemia type D50.9 Iron deficiency anemia type: unspecified iron deficiency
[2025-07-10 12:43] LABS: Hematocrit 28.1 % (36-47); Hemoglobin 7.90 g/dL (11.27-16.99); Mean Corpuscular HGB Conc 28.1 g/dL (30-55); Mean Corpuscular Hemoglobin 26.3 pg (27-33); Mean Corpuscular Volume 93.7 fl (85-98); Nucleated Red Blood Cells % 0.2 %; Platelet Count 381 10^3/cmm (157-399); Red Blood Count 3.00 10^6/uL (3.85-5.65); White Blood Count 11.91 10^3/uL (3.29-11.43)
--- NOTE | 2025-07-10 13:12 | CT_ITS ---
WS: [id number] CT ANGIOGRAPHY ABDOMEN AND PELVIS HISTORY: hb drop without significant source, to rule out intra-abdominal blood loss. TECHNIQUE: CT angiogram is performed during IV injection. Reformation images reviewed. All CT scans at [facility] use at least one of these dose optimization techniques: automated exposure control; mA and/or kV adjustment per patient size (includes targeted exams where dose is matched to clinical indication); or iterative reconstruction. CONTRAST: Omnipaque 350; 100 mL IV. DLP: 562.65 mGy.cm COMPARISON: 11/08/2024 Chronic emphysematous changes at the lung bases. Very small bilateral pleural effusions. Moderate cardiomegaly. Small pericardial effusion. Abdominal aorta: Good opacification of the abdominal aorta. Atherosclerotic plaque with no aneurysm. Plaque continues into the iliac arteries. Mild atherosclerotic plaque in the SMA and celiac axis. No para-aortic or retroperitoneal hematoma. Normal appearance of the liver and spleen. Prior cholecystectomy. There is a small amount of soft tissue in the dusty hepatis and surrounding the duodenum. This appears to be a small amount of fluid. There is a small amount of fluid adjacent to the spleen. Normal adrenal glands. Pancreatic atrophy. Cortical thinning and scarring of each kidney. There is no renal obstruction. No GI tract obstruction. No GI tract active bleeding identified. There is a very small amount of fluid adjacent to the spleen and within the pelvis. Calcifications are low suggesting this is simple fluid. There is a small amount of fluid extending along the small bowel in the RIGHT lower abdomen. Hounsfield units are low. Mild mesenteric and retroperitoneal stranding. There is no large collection of blood. Supraumbilical abdominal wall hernia contains fat only. Increase in lumbar lordosis. CT/CT angio abdomen pelvis [id number] IMPRESSION: 1. Very small bilateral pleural effusions. 2. There is a small amount of fluid in the abdomen and pelvis additional mesen fredo and retroperitoneal soft tissue stranding. There is no large collection or hematoma identified. The fluid in the abdomen and pelvis with low Hounsfield u nits suggesting simple fluid and not hemoperitoneum. If patient's hemoglobin co ntinues to drop repeat CT imaging may be of benefit to evaluate for any increas e in amount of fluid. 3. No retroperitoneal hematoma. No inguinal hematoma.
[2025-07-10] MEDS: iohexol 350 mg/mL 500 mL Btl (per mL) IV (13:56)
--- NOTE | 2025-07-10 15:39 | PM.DCS ---
Discharge Providers Date of Admission: 07/07/25 19:46 Date of Discharge: July 10, 2025 Attending Provider at Admission: Michael Banda MD Attending Provider at Discharge: Harshil Hearn MD Primary Care Provider: RUEL Lugo Diagnoses at Discharge Discharge Diagnosis 1. Atrial fibrillation with RVR: 2. Constipation, slow transit: 3. Adult onset hypothyroidism: 4. Mixed hyperlipidemia: 5. TIA (transient ischemic attack): 6. Essential (primary) hypertension: 7. Non-Hodgkin lymphoma in remission: 8. History of left breast cancer: 9. Anemia due to other cause, not classified: Reason for Visit Reason for Visit: afib with rvr Brief History: As per the previous retrospective note and the patient Beryl Juárez is a 79 year old female with history of atrial fibrillation diagnosed in October of this year when she was admitted with bowel obstruction. She has been taking apixaban faithfully and also metoprolol. She comes in today with a flutter and rapid ventricular rate. Patient was monitoring increasing tachycardia at home and she and her son-in-law Dain and daughter Kesha who are present at bedside have kept good record. In the last week she has had heart rates into the 120s and 150s repeatedly. Measuring from 06/23/202024 heart rate 125 on the second 153 on the third 125 on the fourth 153 on the ninth 158 and on the 14 150s and today 150. Notably the days that she did not have tachycardia include June 27, , , and . The patient has palpitations she states ironically is more when her heart is going slower but she has dyspnea on exertion. She has had chest pain once sharp and once heavy but only transient for few minutes on 2 occasions during that time. Patient notes weight loss of 30 pounds avoiding sugar because she was told that her A1c was prediabetic by her doctor. A1c last year in February was 6.4 and more recently was 5.8 on 12/09/2024 Hospital Course Hospital Course Cardiology has been on board for her management Patient was admitted in the ICU secondary to atrial fibrillation with RVR she received amiodarone drip as per protocol and also Cardizem drip to control her heart rate. The next 24 hours the patient heart rate was better however she had bradycardia and mild hypotension that was managed with atropine fluid bolus dopamine and also low-dose nor epi that proved her condition. Her heart rate and blood pressure was better. Her antihypertensives and beta-blockers were held accordingly during that episode. After stabilization in the next 24 hours she was started on metoprolol 50 mg twice daily after cardiology input. The patient bradycardia and hypotension were secondary to effect of the infusions that she received on the first day. Her echo report was unremarkable for any significant acute concerning findings. TSH was in the normal range therefore her levothyroxine were continued with a home dose The patient later on had further on and off atrial fibrillation episodes that were controlled with amiodarone. Therefore amiodarone 200 mg daily was added with metoprolol 50 mg twice daily at the time of discharge. She was also having anemia and further workup showed its iron deficiency anemia. Iron supplementation started and informed patient. CTA of the abdomen pelvis did not show any significant or concerning bleeding. Apixaban dose was reduced to 2.5 mg twice daily. Rest of her comorbidities were managed accordingly. Her hospital course was uncomplicated. She was discharged after discussing her case with the vacuum cleaner operator and finalizing the plan with medication reconciliation. She needs follow-up with primary care with CBC before the appointment in the next 1 to 2 weeks and consideration of colonoscopy that will be beneficial in her case considering she has iron deficiency anemia. Cardiology follow-ups has also been provided accordingly. Patient condition has been discussed at length with the patient/family, I have independently reviewed the chart labs imaging/diagnostics/EKG. the goals of care and code status with the patient/family/NOK/legal veterans service representative, and documented accordingly. The patient/family has been informed about the current condition and further plan of care. All the questions and concerns were addressed. Agreed with the plan of care and understood without any language barrier. Every effort was made to ensure accuracy of hot wire glass tube cutter. Any obvious errors or omissions should be clarified with the author of the document. Physical Exam Narrative: General: Alert oriented x3, patient seen lying without any distress and reading her novel with her breakfast HEENT: Normocephalic, atraumatic, EOMI, breathing on room air Cardio: Irregularly irregular rhythm with normal rate, normal S1-S2, no murmurs rubs gallops, JVD normal_ Respiratory: Good bilateral air entry, no wheezes no rhonchi appreciated GI: Abdomen soft, nontender, nondistended, normoactive bowel sounds present all 4 quadrants, Neuro: Cranial nerves II to XII intact, strength 5/5, sensation 5/5, no gross neurological deficit Behavior: Appropriate and cooperative Extremities: Mild trace edema without any change from the time of admission Skin: Grossly unremarkable Discharge Data Studies Completed and Pending Completed Studies During Hospitalization Category Date Time Status CTA abdomen pelvis [CT angio abdomen pelvis [id number]] Cat Scan 07/10/25 13:12 Completed Routine XR chest 1V portable [id number] Stat Exams 07/07/25 17:06 Completed CV. echo limited [id number] Routine Ultrasound 07/08/25 14:28 Completed Pending at discharge Category Date Time Status CBC Auto Diff [Complete Blood Count w/Auto] AM LABS Lab 07/11/25 04:00 Ordered CMP [Comprehensive Metabolic Panel] AM LABS Lab 07/11/25 04:00 Ordered Radiology Impressions Chest X-Ray 07/07/25 17:06 IMPRESSION: 1. Cardiomegaly. 2. No acute disease in the chest. Abdomen/Pelvis CTA 07/10/25 13:12 IMPRESSION: 1. Very small bilateral pleural effusions. 2. There is a small amount of fluid in the abdomen and pelvis additional mesentery and retroperitoneal soft tissue stranding. There is no large collection or hematoma identified. The fluid in the abdomen and pelvis with low Hounsfield units suggesting simple fluid and not hemoperitoneum. If patient's hemoglobin continues to drop repeat CT imaging may be of benefit to evaluate for any increase in amount of fluid. 3. No retroperitoneal hematoma. No inguinal hematoma. Laboratory Results WBC 11.91 10^3/uL (3.29-11.43) H 07/10/25 10:59 RBC 3.00 10^6/uL (3.85-5.65) L 07/10/25 10:59 Hgb 7.90 g/dL (11.27-16.99) L 07/10/25 10:59 Hct 28.1 % (36-47) L 07/10/25 10:59 MCV 93.7 fl (85-98) 07/10/25 10:59 MCH 26.3 pg (27-33) L 07/10/25 10:59 MCHC 28.1 g/dL (30-55) L 07/10/25 10:59 RDW 15.2 % (12.1-15.1) H 07/10/25 10:59 Plt Count 381 10^3/cmm (157-399) 07/10/25 10:59 MPV 11.0 fL (7.4-10.4) H 07/10/25 10:59 Neut % (Auto) 68.7 % 07/10/25 10:59 Lymph % (Auto) 17.4 % 07/10/25 10:59 Drew % (Auto) 9.7 % 07/10/25 10:59 Eos % (Auto) 3.3 % 07/10/25 10:59 Baso % (Auto) 0.6 % 07/10/25 10:59 Neut # (Auto) 8.18 10^3/uL (1.8-7.7) H 07/10/25 10:59 Lymph # (Auto) 2.1 10^3/uL (0.8-4.8) 07/10/25 10:59 Drew # (Auto) 1.2 10^3/uL (0.2-0.9) H 07/10/25 10:59 Eos # (Auto) 0.4 10^3/uL (0.0-0.8) 07/10/25 10:59 Baso # (Auto) 0.1 10^3/uL (0.0-0.1) 07/10/25 10:59 Nucleated RBC % (auto) 0.2 % 07/10/25 10:59 Nucleated RBCs # 0.0 /100WBC 07/10/25 10:59 PT 19.20 SECONDS (12.1-14.9) H 07/07/25 17:41 INR 1.52 (0.8-1.2) H 07/07/25 17:41 APTT 37.7 SECONDS (23.9-36.7) H 07/07/25 17:41 Sodium 144 mmol/L (136-145) 07/10/25 03:27 Potassium 4.5 mmol/L (3.5-5.1) 07/10/25 03:27 Chloride 110 mmol/L (98-107) H 07/10/25 03:27 Carbon Dioxide 21 mmol/L (22-29) L 07/10/25 03:27 Anion Gap 17.5 (5-19) 07/10/25 03:27 BUN 20 mg/dL (8-23) 07/10/25 03:27 Creatinine 1.1 mg/dL (0.5-0.9) H 07/10/25 03:27 GFR Calculation Not Reportable 07/10/25 03:27 Glucose 126 mg/dL (65-115) H 07/10/25 03:27 POC Glucose 159 mg/dL (70-110) H 07/08/25 16:06 Calculated Osmolality 302 mOsm/kg (285-295) H 07/10/25 03:27 Calcium 8.4 mg/dL (8.5-10.5) L 07/10/25 03:27 Magnesium 2.1 mg/dL (1.7-2.3) 07/08/25 03:44 Iron 18 ug/dL (37-145) L 07/08/25 03:44 TIBC 430 mcg/dl 07/08/25 03:44 % Saturation 4.1 % (20-50) L 07/08/25 03:44 Unsat Iron Binding 412 ug/dL (112-347) H 07/08/25 03:44 Ferritin 11 ng/mL (15-150) L 07/08/25 03:44 Total Bilirubin 0.3 mg/dL (0.15-1.2) 07/10/25 03:27 AST 30 U/L (0-32) 07/10/25 03:27 ALT 16 U/L (0-33) 07/10/25 03:27 Alkaline Phosphatase 74 U/L (35-105) 07/10/25 03:27 Troponin T 5th Gen ng/L 22 ng/L (0-10) H 07/08/25 17:24 Troponin T Baseline 15 ng/L (0-10) H 07/07/25 17:41 Troponin T 120 Minute 15.42 ng/L (0-10) H 07/07/25 20:12 Delta Troponin T 0.42 ABS# (0-10) 07/07/25 20:12 Troponin T Hi Sens 6Hr 16.42 ng/L (0-10) H 07/08/25 00:05 Troponin T Hi Sens 6Hr Delta 1.42 ng/L (0-12) 07/08/25 00:05 NT-Pro-B Natriuret Pep 4798 pg/mL (0-450) H 07/07/25 17:41 Total Protein 5.6 g/dL (6.6-8.7) L 07/10/25 03:27 Albumin 3.6 g/dL (3.5-5.2) 07/10/25 03:27 Globulin 2.0 g/dL (1.3-4.6) 07/10/25 03:27 Vitamin B12 912 pg/mL (232-1245) 07/08/25 03:44 Folate > 20.0 ng/mL (4.8-37.3) 07/07/25 17:41 TSH 1.76 uIU/mL (0.27-4.20) 07/07/25 17:41 Vitals Last Vital Signs Temp 98.6 F 07/10/25 10:57 Pulse 54 L 07/10/25 14:25 Resp 20 H 07/10/25 14:00 BP 114/55 07/10/25 13:00 Pulse Ox 97 07/10/25 14:00 O2 Del Method Room Air 07/10/25 12:00 Discharge Plan Discharge Patient Disposition: Home Condition: Stable Prescriptions: New amiodarone [Pacerone] 200 mg Tablet 200 mg PO DAILY 90 Days Qty: 90 0RF polysaccharide iron complex [Ferrex 150] 150 mg iron Capsule 150 mg PO BIDWM 90 Days Qty: 90 0RF metoprolol tartrate 50 mg Tablet 50 mg PO BID@0900,2100 90 Days Qty: 90 0RF pantoprazole [Protonix] 40 mg tablet,delayed release (DR/EC) 40 mg PO DAILY 42 Days Qty: 90 0RF Eliquis 2.5 mg Tablet 2.5 mg PO BID 90 Days Qty: 180 0RF Continued multivitamin [Daily Multi-Vitamin] Tablet 1 tab PO DAILY alendronate [Fosamax] 70 mg tablet 70 mg PO .weekly Qty: 4 5RF calcium carbonate-vitamin D3 [Os-Denys 500 + D3] 500 mg-15 mcg (600 unit) tablet 1 tab PO .2 times day Qty: 60 5RF cholecalciferol (vitamin D3) 125 mcg (5,000 unit) capsule 125 mcg PO DAILY Qty: 30 5RF clopidogrel 75 mg tablet 75 mg PO DAILY Qty: 30 5RF escitalopram oxalate [Lexapro] 10 mg tablet 10 mg PO DAILY Qty: 30 5RF icosapent ethyl [Vascepa] 1 gram capsule See Rx Instructions .ROUTE .COMPLEX Qty: 120 5RF Dose Instruction: TAKE TWO CAPSULES BY MOUTH TWICE DAILY Rx Instructions: TAKE TWO CAPSULES BY MOUTH TWICE DAILY levothyroxine [Levoxyl] 100 mcg tablet 100 mcg PO DAILY Qty: 30 5RF polyethylene glycol 3350 17 gram/dose powder 17 g PO DAILY Qty: 510 5RF rosuvastatin [Crestor] 20 mg tablet 20 mg PO DAILY Qty: 30 5RF tramadol 50 mg tablet 50 mg PO BID PRN (Reason: pain) Qty: 60 5RF letrozole 2.5 mg tablet See Rx Instructions .ROUTE .COMPLEX Qty: 90 1RF Dose Instruction: TAKE ONE TABLET BY MOUTH DAILY Rx Instructions: TAKE ONE TABLET BY MOUTH DAILY valsartan 80 mg tablet 80 mg PO DAILY PRN (Reason: hypertension) Qty: 30 1RF Rx Instructions: If morning BP greater than 150/80, take one tab (80mg) in the evening. Discontinued valsartan 160 mg tablet 160 mg PO QAM Qty: 90 3RF famotidine 20 mg tablet 20 mg PO .HS PRN (Reason: acid reflux) Qty: 30 5RF metoprolol tartrate 25 mg tablet 12.5 mg PO BID 30 Days Qty: 30 5RF Eliquis 5 mg tablet 5 mg PO BID Qty: 180 4RF School Age Lead Teacher OK for DC: Cardiology Discharge Order = DC NOW: Discharge Order (Routine); Ordered 07/10/25 Ordered By: Harshil Hearn Other Ambulatory Orders: DME: Walker (Order) Location: None Selected Ordered By: Harshil Hearn Complete Blood Count w/Auto (Routine) Timeframe: 3 Days Location: Determined by Patient Ordered By: Harshil Hearn Referrals: Christel Gay FNP-C [Primary Care Provider, Family Practice] - 7-10 days Referral Note: post discharge follow up CBC for hb and also to consider discussing colonoscopy since she has iron def anemia Corie Narayanan MD [Physician, Cardiology] - 1 month Referral Note: At [facility] with RVR post discharge FU for continuity of care Camelia Carrion FNP [Nurse Practitioner, Cardiology] - 2 weeks Referral Note: at [facility] with RVR for follow up Discharge Diet: Cardiac Discharge Activity: Resume usual activity and Increase activity as tolerated Patient Instructions: Opioid Safety, Patient Portal & Nancy Instructions Discharge Attestations Time Spent in Discharge Care*: greater than 30 min Specific Discharge Activities: educating patient, educating and/or supporting family/caregiver, discussing with pcp/other providers, discussing with director of casework services/social workers/dc planners, documenting/other paperwork and evaluating patient/reviewing data Status at Discharge: Cognitive status at discharge: cognitively intact, Behavioral status at discharge: cooperative, Functional status at discharge: other assisted ambulation, Overall status at discharge: patient is back to baseline Quality Metrics Clinical Quality Measures [ No reported AMI, CVA or VTE this stay] Coding Level of Care Code Critical Care >/= 30 minutes Diagnoses Atrial fibrillation with RVR I48.91 Constipation, slow transit K59.01 Adult onset hypothyroidism E03.8 Mixed hyperlipidemia E78.2 TIA (transient ischemic attack) G45.9 Essential (primary) hypertension I10 Non-Hodgkin lymphoma in remission C85.90 History of left breast cancer Z85.3 Anemia due to other cause, not classified D64.89 Anemia type: other cause Other causes of anemia: other cause, not classified
--- NOTE | 2025-07-10 17:12 | PC.NURSE ---
Discharge: Extensive written and verbal education provided to patient, her son and [id number] at bedside regarding A-fib, stroke, fall risk, anemia. As well as follow up appointments and new, continued, and stopped meds. Stroke stoplight reviewed with all present risk of stroke with a-fib, and fall risk/ risk of bleed on eliquis. Patient and family had no questions or concerns at the time of discharge. Meds to beds provided new medications.
== END 2025-07-10 17:16 | disposition home or self-care (01) | DRG 309 ==
LOC: ER 19:29 → ICU 21:41
PROVIDERS: Internal Medicine Cardiovascular Disease; Admitting Provider Internal Medicine; Emergency Provider Physician Assistant; PCP Nurse Practitioner; Visit Provider Student in an Organized Health Care Education/Training Program
DX: I48.91 Unspecified atrial fibrillation (principal); C85.9A Non-Hodgkin lymphoma, unspecified, in remission; K59.01 Slow transit constipation; E03.9 Hypothyroidism, unspecified; E78.2 Mixed hyperlipidemia; I10 Essential (primary) hypertension; D50.9 Iron deficiency anemia, unspecified; E55.9 Vitamin D deficiency, unspecified; F41.8 Other specified anxiety disorders; K21.9 Gastro-esophageal reflux disease without esophagitis; M81.0 Age-related osteoporosis without current pathological fracture; I44.30 Unspecified atrioventricular block; T46.1X5A Adverse effect of calcium-channel blockers, initial encounter; I95.9 Hypotension, unspecified; Z79.01 Long term (current) use of anticoagulants; Z79.02 Long term (current) use of antithrombotics/antiplatelets; Z79.811 Long term (current) use of aromatase inhibitors; Z86.73 Personal history of transient ischemic attack (TIA), and cerebral infarction without residual deficits; Z85.3 Personal history of malignant neoplasm of breast; Z92.3 Personal history of irradiation; Z92.21 Personal history of antineoplastic chemotherapy
CPT/HCPCS: 36415; 36416; 71045; 74174; 80048; 80053; 82607; 82728; 82746; 82962; 83540; 83550; 83735; 83880; 84443; 84484; 85014; 85018; 85025; 85610; 85730; 93005; 93308; 96365; 96366; 96367; 96375; 99285; A4222; J0282; J0283; J0461; J1265; J1938; J3490; J7030; J7050; J9999

== ENCOUNTER → 2025-07-14 10:09 | Outpatient (BNVA) | payer MEDICARE, MEDICAID, SELFPAY | PROVIDERS: PCP Nurse Practitioner; Visit Provider Nurse Practitioner | DX: D50.9 Iron deficiency anemia, unspecified (principal) | CPT/HCPCS: 85025 ==

== ENCOUNTER → 2025-08-07 13:24 | Outpatient (BNVA) | payer MEDICARE, MEDICAID, SELFPAY | PROVIDERS: PCP Nurse Practitioner; Visit Provider Internal Medicine Cardiovascular Disease | DX: I48.91 Unspecified atrial fibrillation (principal); I10 Essential (primary) hypertension; C85.9A Non-Hodgkin lymphoma, unspecified, in remission; Z86.73 Personal history of transient ischemic attack (TIA), and cerebral infarction without residual deficits; Z79.01 Long term (current) use of anticoagulants | CPT/HCPCS: 99214 ==

== ENCOUNTER → 2025-08-25 09:56 | Outpatient (BNVA) | payer MEDICARE, MEDICAID, SELFPAY | PROVIDERS: PCP Nurse Practitioner; Visit Provider Nurse Practitioner Family | DX: Z85.3 Personal history of malignant neoplasm of breast (principal) | CPT/HCPCS: 80053; 85025 ==

== ENCOUNTER 2025-08-29 10:27 | Oncology outpatient (recurring) (ONCR) | payer MEDICARE, MEDICAID, SELFPAY | END 2025-09-21 23:59 | disposition home or self-care (01) | PROVIDERS: PCP Nurse Practitioner; Visit Provider Nurse Practitioner Family | DX: Z08 Encounter for follow-up examination after completed treatment for malignant neoplasm (principal); Z85.3 Personal history of malignant neoplasm of breast; Z85.72 Personal history of non-Hodgkin lymphomas; R03.0 Elevated blood-pressure reading, without diagnosis of hypertension; Z79.811 Long term (current) use of aromatase inhibitors; Z92.3 Personal history of irradiation | CPT/HCPCS: 99213 ==

== ENCOUNTER → 2025-09-23 08:54 | Outpatient (BNVA) | payer MEDICARE, MEDICAID, SELFPAY | PROVIDERS: PCP Nurse Practitioner; Visit Provider Nurse Practitioner Family | DX: I48.91 Unspecified atrial fibrillation (principal); I44.0 Atrioventricular block, first degree; I45.10 Unspecified right bundle-branch block; R94.31 Abnormal electrocardiogram [ECG] [EKG]; I48.92 Unspecified atrial flutter; I10 Essential (primary) hypertension; R68.89 Other general symptoms and signs; Z79.01 Long term (current) use of anticoagulants | CPT/HCPCS: 93005; 99214 ==

== ENCOUNTER → 2025-10-10 08:40 | Outpatient (BNVA) | payer MEDICARE, MEDICAID, SELFPAY | PROVIDERS: PCP Nurse Practitioner; Visit Provider Nurse Practitioner Family | DX: I48.20 Chronic atrial fibrillation, unspecified (principal); Z79.01 Long term (current) use of anticoagulants; I10 Essential (primary) hypertension; E03.8 Other specified hypothyroidism; Z86.73 Personal history of transient ischemic attack (TIA), and cerebral infarction without residual deficits | CPT/HCPCS: 99214 ==

== ENCOUNTER 2025-10-16 09:52 | Inpatient (IN) | payer MEDICARE, MEDICAID, SELFPAY ==
[2025-10-16] VITALS (10 sets, daily range): BP systolic 90–109; BP diastolic 52–65; PULSE 47–94; RESP 16–19; TEMP 36.3–36.8; O2SAT 92–100; BMI 28.3; BMI 30.4
--- NOTE | 2025-10-16 09:59 | XRR_ITS ---
PROCEDURE INFORMATION: Exam: XR Right Foot Exam date and time: 10/16/2025 10:01 AM Age: 80 years old Clinical indication: Injury or trauma; Fall; Swelling (edema); Foot; Right; Additional info: Fall, pain TECHNIQUE: Imaging protocol: Radiologic exam of the right foot. Views: 3 or more views. COMPARISON: No relevant prior studies available. FINDINGS: Bones/joints: Hallux valgus deformity with a bunion. Degenerative changes involving the 3rd and 4th toes. There is no fracture or joint dislocation. Soft tissues: Soft tissue swelling of the dorsum of the midfoot. XR/XR foot RT min 3V* [id number] IMPRESSION: 1. No fracture. 2. Hallux valgus deformity with a bunion. 3. Soft tissue swelling of the dorsum of the midfoot.
--- NOTE | 2025-10-16 09:59 | XRR_ITS ---
PROCEDURE INFORMATION: Exam: XR Chest Exam date and time: 10/16/2025 10:01 AM Age: 80 years old Clinical indication: Injury or trauma; Fall; Other: Weakness TECHNIQUE: Imaging protocol: Radiologic exam of the chest. Views: 1 view. COMPARISON: CR XR chest 1V portable [id number] 07/07/2025 5:11 PM FINDINGS: Lungs: Pulmonary vessels are within normal limits. Right lung is clear. Pleural spaces: Small left-sided pleural effusion. Heart/Mediastinum: Cardiomegaly is seen. Bones/joints: Unremarkable. XR/XR chest 1V portable [id number] IMPRESSION: 1. Small left-sided pleural effusion. 2. Cardiomegaly.
--- NOTE | 2025-10-16 10:00 | W.ED.FALL ---
HPI - Fall General: Chief Complaint: Fall Stated Complaint: fall Time Seen by Provider: 10/16/25 09:54 History of Present Illness: 80-year-old female with a history of hypertension, constipation, hyperlipidemia, TIA, chronic anticoagulation on Eliquis and atrial fibrillation who presents emergency room with generalized weakness and a fall last night. Her main complaint is a bruise on the top of her foot. However when family arrives later they are extremely concerned about her generalized weakness. Apparently physician had increased her diuretic and her metoprolol. She had had some swelling and tachycardia. Family states she has been ranging from about 5354-4317 on her pulse and today she is in the 50s. They have been instructed to decrease metoprolol if her rate came down. She has no focal motor deficits. No altered mental status. No chest pain. No abdominal pain. She is just generally weak. States she can barely stand up. Not able to use her walker like she could before. They also concerned she hit her head. Related Data Home Medications ?Medication ?Instructions ?Recorded ?Confirmed multivitamin (Daily Multi-Vitamin 1 tab PO DAILY 01/27/21 10/16/25 tablet) aspirin 81 mg tablet,delayed 81 mg PO DAILY 10/16/25 10/16/25 release calcium 500 mg (as 1 tab PO BID 10/16/25 10/16/25 carbonate)-vitamin D3 15 mcg (600 unit) tablet icosapent ethyl 1 gram capsule 2 g PO BID 10/16/25 10/16/25 (Vascepa) letrozole 2.5 mg tablet 2.5 mg PO DAILY 10/16/25 10/16/25 polyethylene glycol 3350 17 17 g PO DAILY PRN Constipation 10/16/25 10/16/25 gram/dose oral powder Previous Rx's ?Medication ?Instructions ?Recorded alendronate 70 mg tablet (Fosamax) 70 mg PO .weekly #4 tabs 05/28/25 cholecalciferol (vitamin D3) 125 125 mcg PO DAILY #30 caps 05/28/25 mcg (5,000 unit) capsule clopidogrel 75 mg tablet 75 mg PO DAILY #30 tabs 05/28/25 rosuvastatin 20 mg tablet (Crestor) 20 mg PO DAILY #30 tabs 05/28/25 tramadol 50 mg tablet 50 mg PO BID PRN pain #60 tabs 05/28/25 Wheelchair #1 ea 07/14/25 magnesium chloride 64 mg 64 mg PO DAILY #30 tabs 07/14/25 (magnesium chloride) tablet,delayed release (Mag 64) polysaccharide iron complex 150 mg 150 mg PO BIDWM #60 caps 07/14/25 iron capsule (Ferrex) amiodarone 200 mg tablet (Pacerone) 200 mg PO DAILY #90 tabs 08/07/25 apixaban 2.5 mg tablet (Eliquis) 2.5 mg PO BID #180 tabs 08/07/25 pantoprazole 40 mg tablet,delayed 40 mg PO DAILY #90 tabs 08/07/25 release (Protonix) valsartan 160 mg tablet 160 mg PO BID #180 tabs 08/25/25 Held on 10/10/25. Instructions: Doctor's Order levothyroxine 100 mcg tablet See Rx Instructions PO .COMPLEX 09/02/25 (Levoxyl) #34 tabs metoprolol tartrate 50 mg tablet 150 mg (3 x 50 mg) PO 10/01/25 BID@0900,2100 #540 tabs furosemide 40 mg tablet (Lasix) 40 mg PO BID #60 tabs 10/10/25 potassium chloride 20 mEq 20 meq PO DAILY #90 tabs 10/10/25 tablet,extended release(part/cryst) (Klor-Con M) Allergies Allergy/AdvReac Type Severity Reaction Status Date / Time nitrofurantoin (From Allergy ALGY-Rash Verified 10/16/25 09:58 Macrobid) Opioids - Morphine Analogues AdvReac other Verified 10/16/25 09:58 Review of Systems Narrative: Constitutional symptoms: Negative except as documented in HPI. Skin symptoms: Negative except as documented in HPI. Eye symptoms: Negative except as documented in HPI. ENMT symptoms: Negative except as documented in HPI. Respiratory symptoms: Negative except as documented in HPI. Cardiovascular symptoms: Negative except as documented in HPI. Gastrointestinal symptoms: Negative except as documented in HPI. Genitourinary symptoms: Negative except as documented in HPI. Musculoskeletal symptoms: Negative except as documented in HPI. Neurologic symptoms: Negative except as documented in HPI. Psychiatric symptoms: Negative except as documented in HPI. Endocrine symptoms: Negative except as documented in HPI. PFS ED PFSH: Medical History (Updated 10/16/25 @ 15:35 by Eleni Arnett MD) Vitamin D deficiency Constipation, slow transit Lung nodule Breast cancer Situational anxiety Gastric reflux Mixed hyperlipidemia Age related osteoporosis Osteoarthritis TIA (transient ischemic attack) Environmental and seasonal allergies Essential (primary) hypertension Non-Hodgkin lymphoma in remission 1997 with chemo and radiation History of left breast cancer Surgical History History of cataract extraction July 2023 History of right breast biopsy Fibrocystic breast 1983 History of tonsillectomy History of hysterectomy with BSO History of cholecystectomy History of appendectomy History of lumpectomy of left breast 2019 [place] Family History Other Cancer Dementia Hypertension Stroke Denies family history of Diabetes Clotting disorder Anesthesia complication Bleeding disorder Social History Smoking and tobacco/nicotine status: never used tobacco/nicotine Second hand smoke exposure: No Alcohol intake: former Former alcohol use details: Minimal i.e. 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 Skin: Warm, dry. Head: Normocephalic, atraumatic. Neck: Supple, trachea midline. Eye: Extraocular movements are intact. Ears, nose, mouth and throat: Tacky oral mucosa Cardiovascular: Regular, Normal peripheral perfusion. Respiratory: Lungs are clear to auscultation, respirations are non-labored, breath sounds are equal, Symmetrical chest wall expansion. Gastrointestinal: Soft, Nontender, Non distended Musculoskeletal: Normal ROM, no deformity. Neurological: Alert and oriented, No focal neurological deficit observed. Psychiatric: Cooperative, appropriate mood & affect. Course Vital Signs: Vital signs: Vital Signs Temperature 98.3 F 10/16/25 14:40 Pulse Rate 47 L 10/16/25 15:33 Respiratory Rate 17 10/16/25 14:40 Blood Pressure 101/65 10/16/25 15:33 Pulse Oximetry 100 10/16/25 15:33 Oxygen Delivery Me thod Nasal Cannula 10/16/25 14:28 Oxygen Flow Rate 2 10/16/25 14:28 MDM - Fall Medical Decision Making Medical decision making Patient's reason for coming to the emergency room: Weakness, fall Social determinants: Patient lives at home. She is retired she lives alone. I reviewed the patient's medical record. 80-year-old female with a history of hypertension, constipation, hyperlipidemia, TIA, chronic anticoagulation on Eliquis and atrial fibrillation I reviewed the patient's current home meds Patient is anticoagulated on Eliquis Alternate historians: Family provides history that is different than the patient when they arrived Differential diagnosis for patient presenting with generalized weakness including but not limited to and based on the above HPI, review of systems and physical exam: Sepsis. Dehydration. Renal failure. Electrolyte abnormalities. Anemia. Congestive heart failure. Hypotension. Coronary syndrome. Hepatitis. Cirrhosis. Infections such as pneumonia, urinary tract infection, [place] illness, Cellulitis, Viral infections including influenza and Covid-19. Workup: labwork and lab/exam driven imaging ordered to evaluate, rule in and rule out above pathologies. Differential diagnosis including but not limited to and based on the above HPI, review of systems and physical exam: patient with fall and head injury. Subdural hematoma, subarachnoid hemorrhage, concussion, skull fracture. Orders placed to evaluate differential diagnosis based on the above differential, HPI and physical exam CT scan of the head was ordered. Differential diagnosis including but not limited to and based on the above HPI, review of systems and physical exam: In this patient with a musculoskeletal extremity traumatic injury an x-ray is being ordered to rule out fractures and dislocations. Orders placed to evaluate differential diagnosis based on the above differential, HPI and physical exam CT head: No acute intracranial process. No intracranial hemorrhage, no evidence of infarct. No evidence of acute fracture. This was reviewed and interpreted by myself the emergency room physician. I also reviewed the radiology report. Chest x-ray: Small left-sided pleural effusion. Cardiomegaly. No acute process. No infiltrate. No pneumothorax. This was reviewed and interpreted by myself the emergency room physician. I also reviewed the radiology report. EKG: Time 10:07 AM. Rate 55. Sinus bradycardia No ST-T changes, no ectopy, right bundle branch block, This was reviewed and interpreted by myself the ER physician at 10:11 AM. Repeat EKG: Time 11:48 AM. Rate 51. Normal sinus rhythm, No ST-T changes, no ectopy, right bundle branch block, This was reviewed and interpreted by myself the ER physician at 11:53 AM. No significant changes from EKG done previously today in the emergency room Lab Review: Laboratory results were reviewed and interpreted by myself the emergency room physician. No leukocytosis. Mild stable anemia. Acute renal insufficiency with creatinine of 1.7 this is above her baseline. Urinalysis is negative for infection. Serial cardiac markers are 23 and 23 respectively with no acute change. This is baseline due to renal insufficiency Assessment of risk: Level of risk: Moderate risk patient. Elderly with falls. Anticoagulated. Hospitalization considerations: Patient is being admitted for dehydration, acute renal insufficiency and falls. Bradycardia Reexamination: Patient remained stable. No increased work of breathing. No altered mental status. No focal motor deficits. Assessment and plan: Acute renal insufficiency Weakness falls head injury Bradycardia -I discussed the patient with the hospitalist on-call who is admitting the patient. - Discussed findings and plan with patient. Answered any questions. - All laboratory values were reviewed and interpreted personally by myself, the ER physician - All imaging was reviewed and interpreted personally by myself, the ER physician. - Evaluation and treatment of this problem were appropriate in the emergency setting Lab Data 10/16/25 10:25 10/16/25 10:25 Radiology Impressions Chest X-Ray 10/16/25 09:59 IMPRESSION: 1. Small left-sided pleural effusion. 2. Cardiomegaly. Foot X-Ray 10/16/25 09:59 IMPRESSION: 1. No fracture. 2. Hallux valgus deformity with a bunion. 3. Soft tissue swelling of the dorsum of the midfoot. Head CT 10/16/25 12:39 IMPRESSION: 1. No acute intracranial finding. 2. Cortical atrophy is present. Laboratory Results WBC 7.83 10^3/uL (3.29-11.43) 10/16/25 10:25 RBC 3.35 10^6/uL (3.85-5.65) L 10/16/25 10:25 Hgb 9.20 g/dL (11.27-16.99) L 10/16/25 10:25 Hct 31.9 % (36-47) L 10/16/25 10:25 MCV 95.2 fl (85-98) 10/16/25 10:25 MCH 27.5 pg (27-33) 10/16/25 10:25 MCHC 28.8 g/dL (30-55) L 10/16/25 10:25 RDW 20.9 % (12.1-15.1) H 10/16/25 10:25 Plt Count 437 10^3/cmm (157-399) H 10/16/25 10:25 MPV 10.6 fL (7.4-10.4) H 10/16/25 10:25 Neut % (Auto) 72.5 % 10/16/25 10:25 Lymph % (Auto) 14.0 % 10/16/25 10:25 [place] % (Auto) 10.7 % 10/16/25 10:25 Eos % (Auto) 1.7 % 10/16/25 10:25 Baso % (Auto) 0.8 % 10/16/25 10:25 Neut # (Auto) 5.68 10^3/uL (1.8-7.7) 10/16/25 10:25 Lymph # (Auto) 1.1 10^3/uL (0.8-4.8) 10/16/25 10:25 [place] # (Auto) 0.8 10^3/uL (0.2-0.9) 10/16/25 10:25 Eos # (Auto) 0.1 10^3/uL (0.0-0.8) 10/16/25 10:25 Baso # (Auto) 0.1 10^3/uL (0.0-0.1) 10/16/25 10:25 Nucleated RBC % (auto) 0.3 % 10/16/25 10:25 Nucleated RBCs # 0.0 /100WBC 10/16/25 10:25 Sodium 138 mmol/L (136-145) 10/16/25 10:25 Potassium 3.1 mmol/L (3.5-5.1) L 10/16/25 10:25 Chloride 93 mmol/L (98-107) L 10/16/25 10:25 Carbon Dioxide 29 mmol/L (22-29) 10/16/25 10:25 Anion Gap 18.1 (5-19) 10/16/25 10:25 BUN 22 mg/dL (8-23) 10/16/25 10:25 Creatinine 1.7 mg/dL (0.5-0.9) H 10/16/25 10:25 GFR Calculation Not Reportable 10/16/25 10:25 Glucose 113 mg/dL (65-115) 10/16/25 10:25 Calculated Osmolality 290 mOsm/kg (285-295) 10/16/25 10:25 Lactic Acid 2.7 mmol/L (0.5-2.2) H 10/16/25 10:25 Lactic Acid (Sepsis) 3.7 mmol/L (0.5-2.2) H 10/16/25 13:51 Calcium 9.9 mg/dL (8.5-10.5) 10/16/25 10:25 Total Bilirubin 0.6 mg/dL (0.15-1.2) 10/16/25 10:25 AST 37 U/L (0-32) H 10/16/25 10:25 ALT 19 U/L (0-33) 10/16/25 10:25 Alkaline Phosphatase 199 U/L (35-105) H 10/16/25 10:25 Troponin T Baseline 23 ng/L (0-10) H 10/16/25 10:25 Troponin T 60 Minute 22.99 ng/L (0-10) H 10/16/25 11:30 Delta Troponin T -0.01 ABS# (0-10) L 10/16/25 11:30 C-Reactive Protein 3.0 mg/L (0.0-4.9) 10/16/25 10:25 NT-Pro-B Natriuret Pep 48322 pg/mL (0-450) H 10/16/25 10:25 Total Protein 5.7 g/dL (6.6-8.7) L 10/16/25 10:25 Albumin 3.6 g/dL (3.5-5.2) 10/16/25 10:25 Globulin 2.1 g/dL (1.3-4.6) 10/16/25 10:25 Urine Color Yellow (Yellow) 10/16/25 11:38 Urine Appearance Clear (CLEAR) 10/16/25 11:38 Urine pH 5.0 (5-7) 10/16/25 11:38 Ur Specific [place] 1.020 (1.005-1.030) 10/16/25 11:38 Urine Protein Trace (Negative) A 10/16/25 11:38 Urine Glucose (UA) Negative (Normal) 10/16/25 11:38 Urine Ketones Negative (Negative) 10/16/25 11:38 Urine Blood 2+ (Negative) A 10/16/25 11:38 Urine Nitrate Negative (Negative) 10/16/25 11:38 Urine Bilirubin Negative (Negative) 10/16/25 11:38 Urine Urobilinogen 0.2 mg/dL (Negative) 10/16/25 11:38 Ur Leukocyte Esterase Trace (Negative) A 10/16/25 11:38 Urine RBC 0-2 /hpf (0-2) 10/16/25 11:38 Urine WBC 0-5 /hpf (0-5) 10/16/25 11:38 Ur Squamous Epith Cells 0-5 /hpf (0-5) 10/16/25 11:38 Amorphous Sediment Not Reportable 10/16/25 11:38 Urine Bacteria Trace /hpf (NONE) 10/16/25 11:38 Hyaline Casts 30.59 /lpf 10/16/25 11:38 All radiology interpretation(s) finalized by discharge Discharge Plan Discharge Patient Disposition: Admitted As Inpatient Admit Provider: Tevin Khan Clinical Impression: Acute renal insufficiency, Multiple falls, Head injury, Weakness, Contusion of foot, Chronic anticoagulation Condition: Stable Coding Level of Care Code ED Paranormal Investigator for Chloé Blanton
--- NOTE | 2025-10-16 10:07 | ECG_ITS ---
[facility] Date: 2025-[facility]16 Pat Name: Beryl Juárez Department: Room: Gender: Female Cushion Sewer: : 1945 Requested By: Eleni Lai Order Number: [id number] Reading MD: APRYL HOOVER Measurements Intervals [place] Rate: 55 P: 45 OR: 156 QRS: 63 QRSD: 132 T: 125 QT: 475 QTc: 454 Interpretive Statements SINUS BRADYCARDIA RIGHT BUNDLE BRANCH BLOCK [120+ ms QRS DURATION, UPRIGHT V1, 40+ ms S IN I/aVL/V4/V5/V6] Compared to ECG 09/23/2025 09:00:57 Right-axis deviation no longer present Electronically Signed On 10-19-2025 23:26:51 PUMPER GAUGER APPRENTICE by APRYL HOOVER [email or web address]
[2025-10-16 10:50] LABS: Hematocrit 31.9 % (36-47); Hemoglobin 9.20 g/dL (11.27-16.99); Mean Corpuscular HGB Conc 28.8 g/dL (30-55); Mean Corpuscular Hemoglobin 27.5 pg (27-33); Mean Corpuscular Volume 95.2 fl (85-98); Nucleated Red Blood Cells % 0.3 %; Platelet Count 437 10^3/cmm (157-399); Red Blood Count 3.35 10^6/uL (3.85-5.65); White Blood Count 7.83 10^3/uL (3.29-11.43)
[2025-10-16 11:11] LABS: Lactic Sepsis W/Reflex 2.7 mmol/L (0.5-2.2)
[2025-10-16 11:17] LABS: Troponin(5th) Baseline 23 ng/L (0-10)
[2025-10-16 11:20] LABS: Alanine Aminotransferase 19 U/L (0-33); Albumin Level 3.6 g/dL (3.5-5.2); Alkaline Phosphatase 199 U/L (35-105); Aspartate Amino Transferase 37 U/L (0-32); Blood Urea Nitrogen 22 mg/dL (8-23); Calcium 9.9 mg/dL (8.5-10.5); Carbon Dioxide 29 mmol/L (22-29); Globulin 2.1 g/dL (1.3-4.6); Glucose 113 mg/dL (65-115); Total Protein 5.7 g/dL (6.6-8.7)
--- NOTE | 2025-10-16 11:22 | PC.NURSE ---
pt family report concerns regarding pt heart rate at home 'always ove 100', pt does take metropolol, since arrival to ER pt bpm range from 52-65, provider aware
[2025-10-16 11:33] LABS: Reflex Lactate Order REFLEX LACTIC ORDERD
--- NOTE | 2025-10-16 11:48 | ECG_ITS ---
[facility] Test Date: 2025-10-16 Pat Name: Beryl Juárez Department: Room: Gender: Female Structurer: : 1945 Requested By: Eleni Lai Order Number: [id number] Reading MD: APRYL HOOVER Measurements Intervals [place] Rate: 51 P: 39 GA: 166 QRS: 57 QRSD: 146 T: 139 QT: 558 QTc: 517 Interpretive Statements SINUS BRADYCARDIA RIGHT BUNDLE BRANCH BLOCK [120+ ms QRS DURATION, UPRIGHT V1, 40+ ms S IN I/aVL/V4/V5/V6] PROLONGED QT INTERVAL CRITICAL TEST RESULT Compared to ECG 10/16/2025 10:07:08 Prolonged QT interval now present Electronically Signed On 10-19-2025 23:11:10 BID ANALYST by APRYL HOOVER [id number] [id number]
[2025-10-16 11:49] LABS: Anion Gap 18.1 (5-19); Chloride 93 mmol/L (98-107); Osmolality Calculated 290 mOsm/kg (285-295); Potassium 3.1 mmol/L (3.5-5.1); Sodium 138 mmol/L (136-145)
[2025-10-16 11:50] LABS: Glucose Urine UA Negative (Normal); Nitrate Urine Negative (Negative); Specific Gravity, Urine 1.020 (1.005-1.030)
--- NOTE | 2025-10-16 12:39 | CTR_ITS ---
PROCEDURE INFORMATION: Exam: CT Head Without Contrast Exam date and time: 10/16/2025 1:04 PM Age: 80 years old Clinical indication: Injury or trauma; Fall; Blunt trauma (contusions or hematomas); Loss of consciousness unknown; Additional info: Fall, head injury TECHNIQUE: Imaging protocol: Computed tomography of the head without contrast. Radiation optimization: All CT scans at this facility use at least one of these dose optimization techniques: automated exposure control; mA and/or kV adjustment per patient size (includes targeted exams where dose is matched to clinical indication); or iterative reconstruction. COMPARISON: CT head wo con* [id number] 11/09/2022 5:42 PM RADIATION DOSE METRICS: Total DLP (mGy-cm): 1046.18 FINDINGS: Brain: Bilateral parietal lobe encephalomalacia. No midline shift or acute intracranial hemorrhage. Cortical atrophy is present. Cerebral ventricles: No ventriculomegaly. Paranasal sinuses: Visualized sinuses are unremarkable. No fluid levels. Mastoid air cells: Visualized mastoid air cells are well aerated. Bones: Unremarkable. No acute fracture. Soft tissues: Unremarkable. CT/CT head wo con* [id number] IMPRESSION: 1. No acute intracranial finding. 2. Cortical atrophy is present.
[2025-10-16 13:47] LABS: NT Pro B Type Natriuretic Pept 21630 pg/mL (0-450)
[2025-10-16 14:19] LABS: Lactic Acid level (Lactate) 3.7 mmol/L (0.5-2.2)
--- NOTE | 2025-10-16 16:33 | ECG_ITS ---
[facility]25-[facility]16 Pat Name: Beryl Juárez Department: Room: 258 Gender: Female District Associate Judge: : 1945 Requested By: Eleni Lai Order Number: [id number] Olga MD: APRYL HOOVER Measurements Intervals [place] Rate: 48 P: 38 ME: 176 QRS: 65 QRSD: 133 T: 136 QT: 559 QTc: 500 Interpretive Statements SINUS BRADYCARDIA RIGHT BUNDLE BRANCH BLOCK [120+ ms QRS DURATION, UPRIGHT V1, 40+ ms S IN I/aVL/V4/V5/V6] PROLONGED QT INTERVAL CRITICAL TEST RESULT Compared to ECG 10/16/2025 11:48:45 No significant changes Electronically Signed On 10-19-2025 23:25:49 SUPERVISOR LEAF SPRING REPAIR by APRYL HOOVER [email or web address]
--- NOTE | 2025-10-16 17:00 | PM.HP ---
Providers/Chief Complaint Admitting Physician: Tevin Khan MD Primary Care Provider: Christel Gay, MEREDITH-C Chief Complaint: fall History of Present Illness Beryl Juárez is a 80 year old female with pmhx of HTN, HLD, TIA, GERD, atrial fibrillation with RVR, CVA, SBO, anemia, multiple falls, chronic anticoagulation, anxiety, arthritis, slow transit constipation, head injury, non-Hodgkin lymphoma (1997), and left breast cancer (2019) presenting with complaints of arrhythmia and falls. Patient family at bedside to assist with report. For the last 3 months, patient has been working with [facility] cardiology to correct atrial fibrillation, reduced fluid overload, and normalized heart rate/blood pressure. She has had multiple medication regimen adjustments to achieve these needs. 07/07/25 patient had an ICU inpatient stay for a flutter RVR into the 150s intermittent. Her beta-blockers were held; amiodarone drip and Cardizem drip protocols were started. IV cortisone converted her to sinus rhythm. After stabilization, metoprolol 50 mg twice daily were started. Amiodarone 200 mg daily was added at discharge. 07/14/2025 she visited her PCP outpatient and reported heart rate 40?56 on the metoprolol 50 mg twice daily, this was reduced to 25 mg twice daily. 08/28/2025 she visited her PCP outpatient and reported tachycardia 120s?130s despite metoprolol twice daily. 09/23/2025 cardiology outpatient; tachycardia despite increased metoprolol. Pedal edema correlated with amlodipine; amlodipine discontinued. TSH 6.75 in 08/2025; thyroid medication adjusted 10/10/2025 cardiology outpatient 2-week follow-up; increased BLE, tachycardia 120's, hypotension, abdominal distention, and dyspnea on exertion. amiodarone 200 mg daily, Eliquis 2.5 mg twice daily, Plavix, Vascepa, metoprolol tartrate 150 mg twice daily, rosuvastatin 20 mg daily, and valsartan 160 mg twice daily For the last week, patient has been on Lasix twice daily for fluid overload. She has lost 14 pounds since 10/12/2025. Family states that her heart rate plunged to the 40s and she converted from atrial fibrillation to sinus rhythm. Last night, patient had complaints of weakness, dizziness, double vision, dry heaves, and palpitations. Endorses intermittent anxiety, weakness, and sleeplessness. She sustained a fall injuring her shoulder and right foot, requiring assistance to get up. This morning, she took her morning medications including a dose of her 150 mg metoprolol p.o. She reports feeling increasingly weak & short of breath and could not walk, even with use of her assisstive devices. EMS was called and she was transported to [facility] ED for further evaluation and treatment. In the ED, BP 101/65, HR 47, RR 17, T98.3, O2 100, 2L nasal cannula. WBC 7.83, Hgb 9.2, PLT 437. Potassium 3.1. Creatinine 1.7, BUN 22. Lactic 2.7 > 3.7. AST 37, ALT 19, ALP 199. Troponin 23 > 22.99. BNP 66706. CXR; Small left-sided pleural effusion, cardiomegaly. Head CT; No acute intracranial finding, cortical atrophy is present. Right foot xray; no fracture, see full results. Will admit to hospitalist service. Review of Systems Narrative: CONSTITUTIONAL: No fever or chills. EYES: No blurring of vision or other visual disturbances lately. ENT: No hoarseness of voice, auditory disturbances or sore throat. CARDIOVASCULAR: As mentioned. RESPIRATORY: No significant cough. GASTROINTESTINAL: No hematemesis or melena. GENITOURINARY: No dysuria or hematuria. INTEGUMENTARY: Easy bruising NEURO: History of multiple TIAs in the past PSYCHIATRIC: No history of psychosis or major depression. HEMATOLOGIC: On long-term oral anticoagulation. History of non-Hodgkin's lymphoma ENDOCRINE: No history of polyuria or polydipsia. MUSCULOSKELETAL: Right foot joint pain or swelling. Card: Reports: palpitations, irregular heart rhythm, lightheadedness and dyspnea on exertion; Denies: chest pain, swelling of feet/ankles, pre-syncope or leg pain with exertion Medications/Allergies Home Medications ?Medication ?Instructions ?Recorded ?Confirmed ?Last Taken ?Type multivitamin (Daily Multi-Vitamin 1 tab PO DAILY 01/27/21 10/16/25 10/16/25 History tablet) alendronate 70 mg tablet (Fosamax) 70 mg PO .weekly #4 tabs 05/28/25 10/16/25 10/13/25 Rx cholecalciferol (vitamin D3) 125 125 mcg PO DAILY #30 caps 05/28/25 10/16/25 10/16/25 Rx mcg (5,000 unit) capsule clopidogrel 75 mg tablet 75 mg PO DAILY #30 tabs 05/28/25 10/16/25 10/16/25 Rx rosuvastatin 20 mg tablet (Crestor) 20 mg PO DAILY #30 tabs 05/28/25 10/16/25 10/16/25 Rx tramadol 50 mg tablet 50 mg PO BID PRN pain #60 tabs 05/28/25 10/16/25 Unknown Rx Wheelchair #1 ea 07/14/25 10/16/25 Unknown Rx magnesium chloride 64 mg 64 mg PO DAILY #30 tabs 07/14/25 10/16/25 10/16/25 Rx (magnesium chloride) tablet,delayed release (Mag 64) polysaccharide iron complex 150 mg 150 mg PO BIDWM #60 caps 07/14/25 10/16/25 10/15/25 Rx iron capsule (Ferrex) amiodarone 200 mg tablet (Pacerone) 200 mg PO DAILY #90 tabs 08/07/25 10/16/25 10/16/25 Rx apixaban 2.5 mg tablet (Eliquis) 2.5 mg PO BID #180 tabs 08/07/25 10/16/25 10/16/25 Rx pantoprazole 40 mg tablet,delayed 40 mg PO DAILY #90 tabs 08/07/25 10/16/25 10/16/25 Rx release (Protonix) valsartan 160 mg tablet 160 mg PO BID #180 tabs 08/25/25 10/16/25 Unknown Rx Held on 10/10/25. Instructions: Doctor's Order levothyroxine 100 mcg tablet See Rx Instructions PO .COMPLEX 09/02/25 10/16/25 10/16/25 Rx (Levoxyl) #34 tabs metoprolol tartrate 50 mg tablet 150 mg (3 x 50 mg) PO 10/01/25 10/16/25 10/16/25 Rx BID@0900,2100 #540 tabs furosemide 40 mg tablet (Lasix) 40 mg PO BID #60 tabs 10/10/25 10/16/25 10/16/25 Rx potassium chloride 20 mEq 20 meq PO DAILY #90 tabs 10/10/25 10/16/25 10/16/25 Rx tablet,extended release(part/cryst) (Klor-Con M) aspirin 81 mg tablet,delayed 81 mg PO DAILY 10/16/25 10/16/25 10/16/25 History release calcium 500 mg (as 1 tab PO BID 10/16/25 10/16/25 10/16/25 History carbonate)-vitamin D3 15 mcg (600 unit) tablet icosapent ethyl 1 gram capsule 2 g PO BID 10/16/25 10/16/25 10/16/25 History (Vascepa) letrozole 2.5 mg tablet 2.5 mg PO DAILY 10/16/25 10/16/25 10/16/25 History polyethylene glycol 3350 17 17 g PO DAILY PRN Constipation 10/16/25 10/16/25 Unknown History gram/dose oral powder Allergies Allergy/AdvReac Type Severity Reaction Status Date / Time nitrofurantoin (From Allergy ALGY-Rash Verified 10/16/25 09:58 Macrobid) Opioids - Morphine Analogues AdvReac other Verified 10/16/25 09:58 PFSH Acute PFSH: Medical History Vitamin D deficiency Constipation, slow transit Lung nodule Breast cancer Situational anxiety Gastric reflux Mixed hyperlipidemia Age related osteoporosis Osteoarthritis TIA (transient ischemic attack) Environmental and seasonal allergies Essential (primary) hypertension Non-Hodgkin lymphoma in remission 1997 with chemo and radiation History of left breast cancer Surgical History History of cataract extraction July 2023 History of right breast biopsy Fibrocystic breast 1983 History of tonsillectomy History of hysterectomy with BSO History of cholecystectomy History of appendectomy History of lumpectomy of left breast 2019 [place] Family History Other Cancer Dementia Hypertension Stroke Denies family history of Diabetes Clotting disorder Anesthesia complication Bleeding disorder Social History Smoking and tobacco/nicotine status: never used tobacco/nicotine Second hand smoke exposure: No Alcohol intake: former Former alcohol use details: Minimal i.e. 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, 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 Pets and animals: Yes Pets & animals: cat(s) Do you think of yourself as: Straight/Heterosexual Current gender identity: Female Vitals/I&O/Wt Last Vital Signs Temp 97.4 F L 10/16/25 17:26 Pulse 49 L 10/16/25 17:26 Resp 19 H 10/16/25 17:26 BP 103/53 10/16/25 17:26 Pulse Ox 96 10/16/25 17:26 O2 Del Method Room Air 10/16/25 17:26 O2 Flow Rate 2 10/16/25 14:28 10/16/25 10/16/25 10/16/25 06:59 14:59 22:59 Intake Total 1000 / 1000 Balance 1000 / 1000 Weight last 48 hrs Weight 68.492 kg Weight 63.503 kg Physical Exam Narrative: General: Alert oriented x3 HEENT: Normocephalic, atraumatic, EOMI, breathing on room air Cardio: Bradycardia Respiratory: Shortness of breath, dyspnea on exertion GI: Abdomen soft, nontender, nondistended, normoactive bowel sounds present all 4 quadrants, Neuro: No gross neurological deficit Behavior: Appropriate and cooperative Extremities: Bilateral lower leg edema Data 10/16/25 10:25 10/16/25 10:25 Micro: Microbiology 10/16/25 10:27 Blood Culture - Preliminary Blood SPECIMEN COLLECTED 10/16/25 10:25 Blood Culture - Preliminary Blood SPECIMEN COLLECTED A&P Assessment and plan 1. Bradycardia: Heart rate 45?50 In the setting of dehydration; conservative fluids in the ED On metoprolol, Lasix, valsartan at home Plan Hold Lasix Give metoprolol tartrate at 2100 this evening, tomorrow start metoprolol succinate 50 mg twice daily. If blood pressure still is not normalized, on 10/18/2025, start metoprolol succinate 100 mg twice daily. Hold valsartan, but restart valsartan tomorrow 11/09/2024 echocardiogram; EF 60, grade 2/4 diastolic dysfunction, moderately elevated filling pressures, moderately increased left atrial size, moderately thickened mitral valve, moderate mitral annual calcification, no mitral valve stenosis, moderate mitral valve regurgitation, moderate aortic valve calcification, mild aortic valve stenosis, trace aortic valve regurgitation, mild tricuspid valve regurgitation, no pericardial effusion, right atrial pressure around 5 mmHg, see full results 06/2025 echocardiogram; EF 55%, unremarkable for acute significant findings, moderate left atrial enlargement Supplemental O2 as needed Walk test prior to discharge to determine any need for home oxygen Case management Keep patient for at least 2 midnights to adjust medications and monitor 2. Atrial fibrillation with RVR: On chronic anticoagulation See plan as above 3. Fall: With injury to shoulder, head, and right foot CXR; Small left-sided pleural effusion, cardiomegaly Head CT; No acute intracranial finding, cortical atrophy is present Right foot xray; no fracture, see full results Pain management PT/OT prior to discharge Fall risk precautions 4. Hypokalemia: With dehydration Potassium 3.1 Replete 40 meq once in addition to normal dose EKG Cable Lacer CMP 5. Hypothyroidism: 07/07/2025 TSH 1.76 Continue home levothyroxine TSH, T3, T4 ACTH and cortisol levels also to be drawn in a.m. 6. TIA (transient ischemic attack): History of CVA, TIA, head injury Fall risk precautions On home Eliquis and Plavix, continue Protonix ulcer prevention s/p blood thinners and stress Monitoring 7. Anemia due to other cause, not classified: Chronic, baseline around 11G/DL Iron deficient, continue home iron supplementation 8. Mixed hyperlipidemia: Continue home regimen PDMP PDMP Reviewed: Not Reviewed Attestations Medical Necessity Statement*: Patient expected to stay greater than 2 midnights secondary to arrhythmia and medication adjustment. Diagnoses Bradycardia R00.1 Atrial fibrillation with RVR I48.91 Fall W19.XXXA Hypokalemia E87.6 Hypothyroidism E03.9 TIA (transient ischemic attack) G45.9 Anemia due to other cause, not classified D64.89 Anemia type: other cause Other causes of anemia: other cause, not classified Mixed hyperlipidemia E78.2
[2025-10-16 17:22] LABS: Troponin 5 6HR 23.32 ng/L (0-10); Troponin 5 6HR Delta 0.32 ng/L (0-12)
[2025-10-16 19:10] LABS: Thyroid Stimulating Hormone 10.99 uIU/mL (0.27-4.20)
[2025-10-16] MEDS: pantoprazole 40 mg SDV IVP (20:25)
[2025-10-16 22:23] LABS: Free T4 Free Thyroxine 2.39 ng/dL (0.82-1.77)
[2025-10-17] VITALS (7 sets, daily range): BP systolic 89–107; BP diastolic 43–64; PULSE 45–94; RESP 16–96; TEMP 36.3–36.6; O2SAT 91–98
[2025-10-17] MEDS: cosyntropin 0.25 mg SDV IVP (04:17)
[2025-10-17 04:23] LABS: Hematocrit 31.4 % (36-47); Hemoglobin 9.60 g/dL (11.27-16.99); Mean Corpuscular HGB Conc 30.6 g/dL (30-55); Mean Corpuscular Hemoglobin 28.2 pg (27-33); Mean Corpuscular Volume 92.1 fl (85-98); Nucleated Red Blood Cells % 0.3 %; Platelet Count 481 10^3/cmm (157-399); Red Blood Count 3.41 10^6/uL (3.85-5.65); White Blood Count 6.80 10^3/uL (3.29-11.43)
[2025-10-17] MEDS: APIXABAN 2.5 MG TABLET PO ×2 (04:28→17:04)
[2025-10-17] MEDS: multivitamin therapeutic Tablet 1 TAB PO (04:29)
[2025-10-17] MEDS: calcium carb-vit d 500mg-200unit 1 Tablet 1 EACH PO ×2 (04:31→17:06)
[2025-10-17 04:43] LABS: Anion Gap 14.3 (5-19); Blood Urea Nitrogen 25 mg/dL (8-23); Calcium 9.4 mg/dL (8.5-10.5); Carbon Dioxide 32 mmol/L (22-29); Chloride 95 mmol/L (98-107); Glucose 119 mg/dL (65-115); Magnesium 1.8 mg/dL (1.7-2.3); Osmolality Calculated 290 mOsm/kg (285-295); Potassium 4.3 mmol/L (3.5-5.1); Sodium 137 mmol/L (136-145)
[2025-10-17 04:46] LABS: Lactic Sepsis W/Reflex 2.2 mmol/L (0.5-2.2)
[2025-10-17 04:52] LABS: NT Pro B Type Natriuretic Pept 19113 pg/mL (0-450)
[2025-10-17 04:53] LABS: Cosyntropin Baseline 19.46 mcg/dL
[2025-10-17 05:38] LABS: Cosyntropin 30 Minute 27.46 mcg/dL
[2025-10-17 06:07] LABS: Reflex Lactate Order REFLEX LACTIC ORDERD
[2025-10-17 06:10] LABS: Cosyntropin 1 Hour 33.04 mcg/dL
[2025-10-17 09:32] LABS: Lactic Acid level (Lactate) 2.8 mmol/L (0.5-2.2)
--- NOTE | 2025-10-17 09:51 | PC.SOCIAL ---
IMM Updated Updated pt on IMM. No questions voiced. Provided pt a copy. Initialed, dated, & timed a copy & placed in chart.
--- NOTE | 2025-10-17 15:51 | P.CONIM_ITS ---
Providers/Reason For Consult 2 Consulting Physician/Specialty*: Valerio Worley MD/ Cardiology Reason for Consult*: Atrial fibrillation/ bradycardia Requesting Physician: Dr Khan Attending Physician: Tevin Khan MD Primary Care Provider: RUEL Lugo History of Present Illness History of Present Illness Beryl Juárez is a 80 year old female with past medical history of atrial fibrillation on amiodarone and metoprolol who presented to hospital with weakness and bradycardia. EKG shows sinus bradycardia with heart rate in 40s. Also feels palpitations occasionally. Review of Systems 2 Card: Reports: palpitations Medications/Allergies Home Medications ?Medication ?Instructions ?Recorded ?Confirmed ?Last Taken ?Type multivitamin (Daily Multi-Vitamin 1 tab PO DAILY 01/2710/16/25 10/16/25 History tablet) alendronate 70 mg tablet (Fosamax) 70 mg PO .weekly #4 tabs 05/28/25 10/16/25 10/13/25 Rx cholecalciferol (vitamin D3) 125 125 mcg PO DAILY #30 caps 05/28/25 10/16/25 10/16/25 Rx mcg (5,000 unit) capsule clopidogrel 75 mg tablet 75 mg PO DAILY #30 tabs 04/1610/16/25 10/16/25 Rx rosuvastatin 20 mg tablet (Crestor) 20 mg PO DAILY #30 tabs 05/28/25 10/16/25 10/16/25 Rx tramadol 50 mg tablet 50 mg PO BID PRN pain #60 ta bs 05/28/25 10/16/25 Unknown Rx Wheelchair #1 ea 07/14/25 10/16/25 Unkn own Rx magnesium chloride 64 mg 64 mg PO DAILY #30 tabs 06/2410/16/25 10/16/25 Rx (magnesium chloride) tablet,delayed release (Mag 64) polysaccharide iron complex 150 mg 150 mg PO BIDWM #60 caps 07/14/25 10/16/25 10/15/25 Rx iron capsule (Ferrex) amiodarone 200 mg tablet (Pacerone) 200 mg PO DAILY #9 0 tabs 08/07/25 10/16/25 10/16/25 Rx apixaban 2.5 mg tablet (Eliquis) 2.5 mg PO BID #180 ta bs 08/07/25 10/16/25 10/16/25 Rx pantoprazole 40 mg tablet,delayed 40 mg PO DAILY #90 t abs 08/07/25 10/16/25 10/16/25 Rx release (Protonix) valsartan 160 mg tablet 160 mg PO BID #180 tabs 01/1410/16/25 Unknown Rx Held on 10/10/25. Instructions: Doctor's Order levothyroxine 100 mcg tablet See Rx Instructions PO .C OMPLEX 09/02/25 10/16/25 10/16/25 Rx (Levoxyl) #34 tabs metoprolol tartrate 50 mg tablet 150 mg (3 x 50 mg) PO 10/01/25 10/16/25 10/16/25 Rx BID@0900,2100 #540 tabs furosemide 40 mg tablet (Lasix) 40 mg PO BID #60 tabs 10/10/25 10/16/25 10/16/25 Rx potassium chloride 20 mEq 20 meq PO DAILY #90 tabs 10/16/25 10/16/25 Rx tablet,extended release(part/cryst) (Klor-Con M) aspirin 81 mg tablet,delayed 81 mg PO DAILY 10/16/25 1 12/17/24 10/16/25 History release calcium 500 mg (as 1 tab PO BID 10/16/2510/16/25 History carbonate)-vitamin D3 15 mcg (600 unit) tablet icosapent ethyl 1 gram capsule 2 g PO BID 10/16/2510/16/25 History (Vascepa) letrozole 2.5 mg tablet 2.5 mg PO DAILY 10/16/2510/16/25 History polyethylene glycol 3350 17 17 g PO DAILY PRN Constipa tion 10/16/25 10/16/25 Unknown History gram/dose oral powder Allergies Allergy/AdvReac Type Severity Reaction Status Date / Time nitrofurantoin (From Allergy ALGY-Rash Verified 10/16/25 09:58 Macrobid) Opioids - Morphine Analogues AdvReac other Verified 10/16/25 09:58 Current Medications Generic Name Dose Route Start Last Admin Trade Name Freq PRN Reason Stop Dose Admin Acetaminophen 650 mg 10/16/25 18:32 10/16/25 22:48 Acetaminophen 325 Mg Tablet PO 650 mg Q6H PRN Administration Mild/Mod Pain Or Temp >/= 101 Apixaban 2.5 mg 10/17/25 05:00 10/17/25 04:28 Apixaban 2.5 Mg Tablet PO 2.5 mg BID INDIRA Administration Aspirin 81 mg 10/17/25 05:00 10/17/25 04:29 Aspirin 81 Mg Ec Tablet PO 81 mg DAILY INDIRA Administration Atorvastatin Calcium 80 mg 10/16/25 21:00 10/16/25 20:25 Atorvastatin 40 Mg Tablet PO 80 mg BEDTIME INDIRA Administration Calcium Carbonate 1 each 10/17/25 05:00 10/17/25 04:31 Calcium Carb-Vit D 500mg-200unit 1 Tablet PO 1 each BID INDIRA Administration Clopidogrel Bisulfate 75 mg 10/17/25 05:00 10/17/25 04:29 Clopidogrel 75 Mg Tablet PO 75 mg DAILY INDIRA Administration Docusate Sodium 100 mg 10/17/25 05:00 10/17/25 04:28 Docusate Sodium 100 Mg Capsule PO 100 mg BID INDIRA Administration Levothyroxine Sodium 100 mcg 10/17/25 05:00 10/17/25 04:28 Levothyroxine 100 Mcg Tablet PO 100 mcg QAM INDIRA Administration Multivitamins Therapeutic 1 tab 10/17/25 05:00 10/17/25 04:29 Multivitamin Therapeutic Tablet PO 1 tab DAILY INDIRA Administration Dzape-7-Hhep Ethyl Esters 2,000 mg 10/17/25 05:00 10/17/25 04:29 [place]-3 Fatty Acids 1,000 Mg Capsule PO 2,000 mg BID INDIRA Administration Pantoprazole Sodium 40 mg 10/16/25 21:00 10/16/25 20:25 Pantoprazole 40 Mg Sdv IVP 40 mg Q24H INDIRA Administration Polysaccharide Iron Complex 150 mg 10/17/25 08:00 10/17/25 08:48 Iron Polysaccharide Complex 150 Mg Capsule PO 150 mg BIDWM INDIRA Administration Potassium Chloride 20 meq 10/17/25 05:00 10/17/25 04:29 Potassium Chloride Er 20 Meq Tablet PO 20 meq DAILY INDIRA Administration Tramadol HCl 50 mg 10/16/25 18:35 10/17/25 11:29 Tramadol 50 Mg Tablet PO 50 mg BID PRN Administration PAIN Vitamin D 5,000 unit 10/17/25 05:00 10/17/25 04:29 Cholecalciferol (Vitamin D3) 5,000 Unit Tablet PO 5,000 unit DAILY INDIRA Administration PFSH Acute 2 PFSH: Medical History Vitamin D deficiency Constipation, slow transit Lung nodule Breast cancer Situational anxiety Gastric reflux Mixed hyperlipidemia Age related osteoporosis Osteoarthritis TIA (transient ischemic attack) Environmental and seasonal allergies Essential (primary) hypertension Non-Hodgkin lymphoma in remission 1997 with chemo and radiation History of left breast cancer Surgical History History of cataract extraction July 2023 History of right breast biopsy Fibrocystic breast 1983 History of tonsillectomy History of hysterectomy with BSO History of cholecystectomy History of appendectomy History of lumpectomy of left breast 2019 [place] Family History Other Cancer Dementia Hypertension Stroke Denies family history of Diabetes Clotting disorder Anesthesia complication Bleeding disorder Social History Smoking and tobacco/nicotine status: never used tobacco/nicotine Second hand smoke exposure: No Alcohol intake: former Former alcohol use details: Minimal i.e. 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, 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 Pets and animals: Yes Pets & animals: cat(s) Do you think of yourself as: Straight/Heterosexual Current gender identity: Female Vitals/I&O/Wt Last Vital Signs Temp 97.5 F L 10/17/25 15:43 Pulse 48 L 10/17/25 15:43 Resp 17 10/17/25 15:43 BP 89/43 10/17/25 15:43 Pulse Ox 93 10/17/25 15:43 O2 Del Method Room Air 10/17/25 15:43 O2 Flow Rate 2 10/16/25 14:28 10/17/25 10/17/25 10/17/25 06:59 14:59 22:59 Intake Total 600 / 600 Output Total 200 / 200 Balance 400 / 400 Weight last 48 hrs Weight 150 lb 5 oz Weight 151 lb Weight 140 lb Physical Exam 2 Narrative: GENERAL: Patient is alert, awake and oriented x3. [] NECK: No jugular vein distension. [] HEENT: No cyanosis. No icterus. No pallor. [] HEART: Bradycardia LUNGS: Clear to auscultate bilaterally. [] CENTRAL NERVOUS SYSTEM: Grossly nonfocal. [] EXTREMITIES: Lower extremities with 1+ edema bilaterally. Data 10/18/25 05:29 10/18/25 05:29 Micro: Microbiology 10/16/25 10:27 Blood Culture - Preliminary Blood NEGATIVE TO DATE 10/16/25 10:25 Blood Culture - Preliminary Blood NEGATIVE TO DATE A&P Assessment and plan 1. Bradycardia: 2. Atrial fibrillation: 3. Essential (primary) hypertension: 4. Mixed hyperlipidemia: Plan: Patient likely has sick sinus syndrome. Currently in sinus bradycardia. Previously had episodes of A-fib with RVR. Hold all rate limiting agents including amiodarone and metoprolol. If heart rates keep fluctuating, patient may need pacemaker placement. If heart rate improves, likely will discharge home with event monitor and holding rate limiting agents. Continue eliquis Thank you for involving us with care of patient. Please call with questions. PDMP PDMP Reviewed: Not Reviewed Consult Attestations 2 Medical Necessity Statement: Care expected to cross 2 midnights. Coding Level of Care Code Acute Code for [facility] Diagnoses Bradycardia R00.1 Atrial fibrillation I48.91 Essential (primary) hypertension I10 Mixed hyperlipidemia E78.2
[2025-10-17] MEDS: pantoprazole 40 mg SDV IVP (20:57)
--- NOTE | 2025-10-17 23:22 | P.PN_ITS ---
Subjective 2 Subjective: Patient is awake, alert today. She states that she has no complaints, no shortness of breath or exertional dyspnea. But she has been staying in bed. Vitals/I&O/Wt Last Vital Signs Temp 97.4 F L 10/17/25 20:00 Pulse 94 10/17/25 20:00 Resp 96 H 10/17/25 20:00 BP 100/59 10/17/25 20:00 Pulse Ox 96 10/17/25 20:00 O2 Del Method Room Air 10/17/25 15:43 O2 Flow Rate 2 10/16/25 14:28 10/17/25 10/17/25 10/18/25 14:59 22:59 06:59 Intake Total 600 / 600 480 / 1080 Output Total 200 / 200 250 / 450 Balance 400 / 400 230 / 630 Weight last 48 hrs Weight 68.181 kg Weight 68.492 kg Weight 63.503 kg Physical Exam 2 Narrative: General: Alert oriented x3 HEENT: Normocephalic, atraumatic, EOMI, breathing on room air Cardio: Bradycardia Respiratory: Shortness of breath, dyspnea on exertion GI: Abdomen soft, nontender, nondistended, normoactive bowel sounds present all 4 quadrants, Neuro: No gross neurological deficit Behavior: Appropriate and cooperative Extremities: Bilateral lower leg edema Data 10/18/25 05:29 10/18/25 05:29 Micro: Microbiology 10/16/25 10:27 Blood Culture - Preliminary Blood NEGATIVE TO DATE 10/16/25 10:25 Blood Culture - Preliminary Blood NEGATIVE TO DATE A&P Assessment and plan 1. Atrial fibrillation: 2. Bradycardia: Heart rate 45?50 In the setting of dehydration; conservative fluids in the ED On metoprolol, Lasix, valsartan at home Plan Heart rate did not seem to improve with holding heart rate lowering medications. Discussed with cardiology, will withhold rate lowering medications during the hospital stay, continue watching and monitor Pressures remained stable while withholding blood pressure medications. 11/09/2024 echocardiogram; EF 60, grade 2/4 diastolic dysfunction, moderately elevated filling pressures, moderately increased left atrial size, moderately thickened mitral valve, moderate mitral annual calcification, no mitral valve stenosis, moderate mitral valve regurgitation, moderate aortic valve calcification, mild aortic valve stenosis, trace aortic valve regurgitation, mild tricuspid valve regurgitation, no pericardial effusion, right atrial pressure around 5 mmHg, see full results 06/2025 echocardiogram; EF 55%, unremarkable for acute significant findings, moderate left atrial enlargement Supplemental O2 as needed Walk test prior to discharge to determine any need for home oxygen Case management Keep patient for at least 2 midnights to adjust medications and monitor 3. Atrial fibrillation with RVR: On chronic anticoagulation See plan as above 4. Fall: With injury to shoulder, head, and right foot CXR; Small left-sided pleural effusion, cardiomegaly Head CT; No acute intracranial finding, cortical atrophy is present Right foot xray; no fracture, see full results Pain management PT/OT prior to discharge Fall risk precautions 5. 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 Hypothyroidism: 07/07/2025 TSH 1.76 Continue home levothyroxine TSH, T3, T4 ACTH and cortisol levels also to be drawn in a.m. 7. TIA (transient ischemic attack): History of CVA, TIA, head injury Fall risk precautions On home Eliquis and Plavix, continue Protonix ulcer prevention s/p blood thinners and stress Monitoring 8. Anemia due to other cause, not classified: Chronic, baseline around 11G/DL Iron deficient, continue home iron supplementation 9. Mixed hyperlipidemia: Continue home regimen PDMP PDMP Reviewed: Not Reviewed Attestations 2 Medical Necessity Statement*: Patient expected to stay greater than 2 midnights secondary to arrhythmia and medication adjustment. Coding Level of Care Code 08637 Diagnoses Atrial fibrillation I48.91 Bradycardia R00.1 Atrial fibrillation with RVR I48.91 Fall W19.XXXA Hypokalemia E87.6 Hypothyroidism E03.9 TIA (transient ischemic attack) G45.9 Anemia due to other cause, not classified D64.89 Anemia type: other cause Other causes of anemia: other cause, not classified Mixed hyperlipidemia E78.2
[2025-10-18] VITALS (7 sets, daily range): BP systolic 94–115; BP diastolic 53–71; PULSE 46–58; RESP 16–18; TEMP 36.4–36.6; O2SAT 86–97
[2025-10-18] MEDS: APIXABAN 2.5 MG TABLET PO ×2 (04:33→18:00)
[2025-10-18] MEDS: calcium carb-vit d 500mg-200unit 1 Tablet 1 EACH PO ×2 (04:33→18:00)
[2025-10-18] MEDS: multivitamin therapeutic Tablet 1 TAB PO (04:33)
[2025-10-18 05:41] LABS: Hematocrit 29.4 % (36-47); Hemoglobin 8.80 g/dL (11.27-16.99); Mean Corpuscular HGB Conc 29.9 g/dL (30-55); Mean Corpuscular Hemoglobin 28.2 pg (27-33); Mean Corpuscular Volume 94.2 fl (85-98); Nucleated Red Blood Cells % 0.2 %; Platelet Count 464 10^3/cmm (157-399); Red Blood Count 3.12 10^6/uL (3.85-5.65); White Blood Count 9.49 10^3/uL (3.29-11.43)
[2025-10-18 06:01] LABS: Anion Gap 14.5 (5-19); Blood Urea Nitrogen 38 mg/dL (8-23); Calcium 9.2 mg/dL (8.5-10.5); Carbon Dioxide 28 mmol/L (22-29); Chloride 94 mmol/L (98-107); Glucose 135 mg/dL (65-115); Magnesium 2.0 mg/dL (1.7-2.3); Osmolality Calculated 285 mOsm/kg (285-295); Potassium 4.5 mmol/L (3.5-5.1); Sodium 132 mmol/L (136-145)
[2025-10-18 06:13] LABS: Free T4 Free Thyroxine 1.99 ng/dL (0.82-1.77); Thyroid Stimulating Hormone 12.11 uIU/mL (0.27-4.20)
--- NOTE | 2025-10-18 10:37 | USCV_ITS ---
Beryl Juárez Age: 80 Gender: F : 1945 Exam Date: 10/18/2025 16:17 Ordering Phys: Valerio Worley M.D ([email or web address]) Technologist: JAEL Exam Location: [facility] – [place] Indication: bradycardia BP: 94 / 57 HR: 55 Rhythm: Sinus Technical Quality: Adequate MEASUREMENTS (Male / Female) Normal Values 2D ECHO LV Diastolic Diameter PLAX 4.5 cm 4.2 - 5.9 / 3.9 - 5.3 cm IVS Diastolic Thickness 0.8 cm 0.6 - 1.0 / 0.6 - 0.9 cm IVS Systolic Thickness 0.8 cm LVPW Diastolic Thickness 0.7 cm 0.6 - 1.0 / 0.6 - 0.9 cm LVPW Systolic Thickness 1.1 cm LVOT Diameter 1.7 cm LV Ejection Fraction 2D Teich 43.8 % LV Ejection Fraction MOD 4C 50.4 % LV Ejection Fraction MOD 2C 48.5 % LV Ejection Fraction 2C AL 48.3 % LA Diameter 4.4 cm RA Systolic Volume 4C AL 64.7 ml RA Systolic Volume 4C MOD 64.8 ml LA Sys Volume AL 63.2 cm cubed LA Sys Volume Index AL 35.1 cm cubed/m squared Aorta at Sinotubular Diameter 2.1 cm IVC Diameter 1.7 cm M-MODE LA Ao Ratio MM 2.0 AV Cusp Separation MM 1.7 cm DOPPLER AV Peak Velocity 118.0 cm/s LVOT Peak Velocity 71.0 cm/s AV Area Cont Eq vti 1.5 cm squared AV Area Cont Eq pk 1.4 cm squared MV Peak Velocity 92.0 cm/s MV Area PHT 3.7 cm squared Mitral E to A Ratio 1.5 TV Peak Velocity 133.0 cm/s TR Peak Velocity 143.0 cm/s TR Peak Gradient 8.2 mmHg TR Mean Velocity 106.0 cm/s TR Mean Gradient 5.0 mmHg TR Velocity Time Integral 43.3 cm PV Peak Velocity 47.0 cm/s RV Ejection Time 0.3 s FINDINGS Left Ventricle Moderately increased left ventricular cavity size. Moderately decreased left ventricular systolic function. Left ventricular ejection fraction is estimated at 45 %. Global left ventricular hypokinesis. Grade II/IV diastolic dysfunction, moderately elevated filling pressures. Right Ventricle Normal right ventricular size and systolic function. Right Atrium Moderately increased right atrial size. Left Atrium Moderately increased left atrial size. IA Septum Normal appearance of the interatrial septum. Mitral Valve Mildly thickened mitral valve. No mitral valve stenosis. Moderate mitral valve regurgitation. Aortic Valve Moderate aortic valve calcification. No aortic valve stenosis. No aortic valve regurgitation. Tricuspid Valve Moderate tricuspid valve regurgitation. Pulmonic Valve Trace pulmonary valve regurgitation. Pericardium No pericardial effusion. Aorta Normal diameter of the aortic root and ascending thoracic aorta. IVC Dilated IVC with decreased respiratory variation. CONCLUSIONS Moderately increased left ventricular cavity size. Moderately decreased left ventricular systolic function. Left ventricular ejection fraction is estimated at 45 %. Global left ventricular hypokinesis. Grade II/IV diastolic dysfunction, moderately elevated filling pressures. Moderately increased left atrial size. Moderately increased right atrial size. Mildly thickened mitral valve. No mitral valve stenosis. Moderate mitral valve regurgitation. Moderate tricuspid valve regurgitation. There is no pericardial effusion. Dilated IVC with decreased respiratory variation. Right atrial pressure is around 20 mm of mercury. Corie Narayanan MD (Electronically Signed) Final Date: 18 October 2025 22:58 S
--- NOTE | 2025-10-18 10:47 | PM.PN ---
Vitals/I&O/Wt Last Vital Signs Temp 97.6 F 10/18/25 07:29 Pulse 46 L 10/18/25 07:29 Resp 16 10/18/25 07:29 BP 112/62 10/18/25 07:29 Pulse Ox 86 L 10/18/25 08:57 O2 Del Method Room Air 10/18/25 07:29 O2 Flow Rate 2 10/18/25 08:57 10/17/25 10/18/25 10/18/25 22:59 06:59 14:59 Intake Total 480 / 1080 150 / 1230 480 / 480 Output Total 250 / 450 300 / 300 Balance 230 / 630 150 / 780 180 / 180 Weight last 48 hrs Weight 165 lb Weight 150 lb 5 oz Weight 151 lb Data 10/18/25 05:29 10/18/25 05:29 Micro: Microbiology 10/16/25 10:27 Blood Culture - Preliminary Blood NEGATIVE TO DATE 10/16/25 10:25 Blood Culture - Preliminary Blood NEGATIVE TO DATE A&P PDMP PDMP Reviewed: Not Reviewed Coding Level of Care Code Acute Code for Chg Fwd
--- NOTE | 2025-10-18 15:43 | P.DS_ITS ---
Discharge Providers Date of Admission: 10/16/25 14:35 Date of Discharge: October 18, 2025 Attending Provider at Admission: Tevin Khan MD Attending Provider at Discharge: Tevin Khan MD Primary Care Provider: RUEL Lugo Diagnoses at Discharge Discharge Diagnosis 1. Bradycardia: 2. Atrial fibrillation: 3. Essential (primary) hypertension: 4. Mixed hyperlipidemia: Reason for Visit Reason for Visit: fall Brief History: Beryl Juárez is a 80 year old female with pmhx of HTN, HLD, TIA, GERD, atrial fibrillation with RVR, CVA, SBO, anemia, multiple falls, chronic anticoagulation, anxiety, arthritis, slow transit constipation, head injury, non-Hodgkin lymphoma (1997), and left breast cancer (2019) presenting with complaints of arrhythmia and falls. Patient family at bedside to assist with report. For the last 3 months, patient has been working with [facility] cardiology to correct atrial fibrillation, reduced fluid overload, and normalized heart rate/blood pressure. She has had multiple medication regimen adjustments to achieve these needs. 07/07/25 patient had an ICU inpatient sta y for a flutter RVR into the 150s intermittent. Her beta-blockers were held; amiodarone drip and Cardizem drip protocols were started. IV cortisone converted her to sinus rhythm. After stabilization, metoprolol 50 mg twice daily were started. Amiodarone 200 mg daily was added at discharge. 07/14/2025 she visited her PCP outpatient and reported heart rate 40?56 on the metoprolol 50 mg twice daily, this was reduced to 25 mg twice daily. 08/28/2025 she visited her PCP outpatient and reported tachycardia 120s?130s despite metoprolol twice daily. 09/23/2025 cardiology outpatient; tachyca rdia despite increased metoprolol. Pedal edema correlated with amlodipine; amlodipine discontinued. TSH 6.75 in 08/2025; thyroid medication adjusted 10/10/2025 cardiology outpatient 2-week follow-up; increased BLE, tachycardia 120's, hypotension, abdominal distention, and dyspnea on exertion. amiodarone 200 mg daily, Eliquis 2.5 mg twice daily, Plavix, Vascepa, metoprolol tartrate 1 50 mg twice daily, rosuvastatin 20 mg daily, and valsartan 160 mg twice daily For the last week, patient has been on Lasix twice daily for fluid overload. She has lost 14 pounds since 10/12/2025. Family states that her heart rate plunged to the 40s and she converted from atrial fibrillation to sinus rhythm. Hospital Course Hospital Course Initially we attempted to withhold the metoprolol until her heart rate came up, but on the heart monitor it was not much improvement or deviation from 50 bpm by the time of discharge. Cardiology evaluated the patient and determined the patient had some degree of sick sinus syndrome, and recommended a cardiac monitoring device to be fitted outpatient and to follow-up for eventual pacemaker. Patient was discharged with all her medications, except recommended to withhold valsartan for the bradycardia, and discontinued amiodarone and metoprolol for now. 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 Patient's heart rate was sustained at 50 bpm, she was discharged in stable condition. Physical Exam Narrative: General: Alert oriented x3 HEENT: Normocephalic, atraumatic, EOMI, breathing on room air Cardio: Bradycardia Respiratory: Shortness of breath, dyspnea on exertion GI: Abdomen soft, nontender, nondistended, normoactive bowel sounds present all 4 quadrants, Neuro: No gross neurological deficit Behavior: Appropriate and cooperative Extremities: Bilateral lower leg edema Discharge Data Studies Completed and Pending Completed Studies During Hospitalization Category Date Time Status CT head wo con* [id number] Stat Cat Scan 10/16/25 12:39 Completed XR chest 1V portable [id number] Stat Exams 10/16/25 09:59 Completed XR foot RT min 3V* [id number] Stat Exams 10/16/25 09:59 Completed Pending at discharge Category Date Time Status Basic Metabolic Panel AM LABS Lab 10/19/25 04:00 Ordered Blood Culture Stat Lab 10/16/25 10:27 Results Complete Blood Count w/Auto AM LABS Lab 10/19/25 04:00 Ordered Magnesium AM LABS Lab 10/19/25 04:00 Ordered CV. echo complete* [id number] Routine Ultrasound 10/18/25 10:37 Ordered Radiology Impressions Chest X-Ray 10/16/25 09:59 IMPRESSION: 1. Small left-sided pleural effusion. 2. Cardiomegaly. Foot X-Ray 10/16/25 09:59 IMPRESSION: 1. No fracture. 2. Hallux valgus deformity with a bunion. 3. Soft tissue swelling of the dorsum of the midfoot. Head CT 10/16/25 12:39 IMPRESSION: 1. No acute intracranial finding. 2. Cortical atrophy is present. Laboratory Results WBC 9.49 10^3/uL (3.29-11.43) 10/18/25 05:29 RBC 3.12 10^6/uL (3.85-5.65) L 10/18/25 05:29 Hgb 8.80 g/dL (11.27-16.99) L 10/18/25 05:29 Hct 29.4 % (36-47) L 10/18/25 05:29 MCV 94.2 fl (85-98) 10/18/25 05:29 MCH 28.2 pg (27-33) 10/18/25 05:29 MCHC 29.9 g/dL (30-55) L 10/18/25 05:29 RDW 20.8 % (12.1-15.1) H 10/18/25 05:29 Plt Count 464 10^3/cmm (157-399) H 10/18/25 05:29 MPV 10.3 fL (7.4-10.4) 10/18/25 05:29 Neut % (Auto) 71.6 % 10/18/25 05:29 Lymph % (Auto) 14.8 % 10/18/25 05:29 [place] % (Auto) 11.1 % 10/18/25 05:29 Eos % (Auto) 1.5 % 10/18/25 05:29 Baso % (Auto) 0.6 % 10/18/25 05:29 Neut # (Auto) 6.80 10^3/uL (1.8-7.7) 10/18/25 05:29 Lymph # (Auto) 1.4 10^3/uL (0.8-4.8) 10/18/25 05:29 [place] # (Auto) 1.1 10^3/uL (0.2-0.9) H 10/18/25 05:29 Eos # (Auto) 0.1 10^3/uL (0.0-0.8) 10/18/25 05:29 Baso # (Auto) 0.1 10^3/uL (0.0-0.1) 10/18/25 05:29 Nucleated RBC % (auto) 0.2 % 10/18/25 05:29 Nucleated RBCs # 0.0 /100WBC 10/18/25 05:29 Sodium 132 mmol/L (136-145) L 10/18/25 05:29 Potassium 4.5 mmol/L (3.5-5.1) 10/18/25 05:29 Chloride 94 mmol/L (98-107) L 10/18/25 05:29 Carbon Dioxide 28 mmol/L (22-29) 10/18/25 05:29 Anion Gap 14.5 (5-19) 10/18/25 05:29 BUN 38 mg/dL (8-23) H 10/18/25 05:29 Creatinine 2.1 mg/dL (0.5-0.9) H 10/18/25 05:29 GFR Calculation Not Reportable 10/18/25 05:29 Glucose 135 mg/dL (65-115) H 10/18/25 05:29 Calculated Osmolality 285 mOsm/kg (285-295) 10/18/25 05:29 Lactic Acid 2.2 mmol/L (0.5-2.2) 10/17/25 04:13 Lactic Acid (Sepsis) 2.8 mmol/L (0.5-2.2) H 10/17/25 08:54 Calcium 9.2 mg/dL (8.5-10.5) 10/18/25 05:29 Magnesium 2.0 mg/dL (1.7-2.3) 10/18/25 05:29 Total Bilirubin 0.6 mg/dL (0.15-1.2) 10/16/25 10:25 AST 37 U/L (0-32) H 10/16/25 10:25 ALT 19 U/L (0-33) 10/16/25 10:25 Alkaline Phosphatase 199 U/L (35-105) H 10/16/25 10:25 Troponin T Baseline 23 ng/L (0-10) H 10/16/25 10:25 Troponin T 60 Minute 22.99 ng/L (0-10) H 10/16/25 11:30 Delta Troponin T -0.01 ABS# (0-10) L 10/16/25 11:30 Troponin T Hi Sens 6Hr 23.32 ng/L (0-10) H 10/16/25 16:41 Troponin T Hi Sens 6Hr Delta 0.32 ng/L (0-12) 10/16/25 16:41 C-Reactive Protein 3.0 mg/L (0.0-4.9) 10/16/25 10:25 NT-Pro-B Natriuret Pep 45178 pg/mL (0-450) H 10/17/25 04:13 Total Protein 5.7 g/dL (6.6-8.7) L 10/16/25 10:25 Albumin 3.6 g/dL (3.5-5.2) 10/16/25 10:25 Globulin 2.1 g/dL (1.3-4.6) 10/16/25 10:25 TSH 12.11 uIU/mL (0.27-4.20) H 10/18/25 05:29 Free T4 1.99 ng/dL (0.82-1.77) H 10/18/25 05:29 Free T3 1.6 PG/ML (2.0-4.4) L 10/16/25 16:41 Random Cortisol Cancelled 10/17/25 04:13 Cortisol Response 10/17/25 04:13 Urine Color Yellow (Yellow) 10/16/25 11:38 Urine Appearance Clear (CLEAR) 10/16/25 11:38 Urine pH 5.0 (5-7) 10/16/25 11:38 Ur Specific [place] 1.020 (1.005-1.030) 10/16/25 11:38 Urine Protein Trace (Negative) A 10/16/25 11:38 Urine Glucose (UA) Negative (Normal) 10/16/25 11:38 Urine Ketones Negative (Negative) 10/16/25 11:38 Urine Blood 2+ (Negative) A 10/16/25 11:38 Urine Nitrate Negative (Negative) 10/16/25 11:38 Urine Bilirubin Negative (Negative) 10/16/25 11:38 Urine Urobilinogen 0.2 mg/dL (Negative) 10/16/25 11:38 Ur Leukocyte Esterase Trace (Negative) A 10/16/25 11:38 Urine RBC 0-2 /hpf (0-2) 10/16/25 11:38 Urine WBC 0-5 /hpf (0-5) 10/16/25 11:38 Ur Squamous Epith Cells 0-5 /hpf (0-5) 10/16/25 11:38 Amorphous Sediment Not Reportable 10/16/25 11:38 Urine Bacteria Trace /hpf (NONE) 10/16/25 11:38 Hyaline Casts 30.59 /lpf 10/16/25 11:38 Vitals Last Vital Signs Temp 98 F 10/18/25 11:31 Pulse 50 L 10/18/25 11:31 Resp 18 10/18/25 11:31 BP 94/57 10/18/25 11:31 Pulse Ox 93 10/18/25 11:31 O2 Del Method Nasal Cannula 10/18/25 11:31 O2 Flow Rate 2 10/18/25 08:57 Discharge Plan Discharge Patient Disposition: Home Condition: Stable Prescriptions: Continued multivitamin [Daily Multi-Vitamin] Tablet 1 tab PO DAILY Eliquis 2.5 mg tablet 2.5 mg PO BID Qty: 180 3RF pantoprazole [Protonix] 40 mg tablet,delayed release (DR/EC) 40 mg PO DAILY Qty: 90 3RF polysaccharide iron complex [Ferrex 150] 150 mg iron capsule 150 mg PO BIDWM Qty: 60 2RF magnesium chloride [Mag 64] 64 mg tablet,delayed release (DR/EC) 64 mg PO DAILY Qty: 30 2RF (DME) Wheelchair See Rx Instructions .Route .MEDSUPPLY Qty: 1 0RF Rx Instructions: As directed alendronate [Fosamax] 70 mg tablet 70 mg PO .weekly Qty: 4 5RF Rx Instructions: on Monday cholecalciferol (vitamin D3) 125 mcg (5,000 unit) capsule 125 mcg PO DAILY Qty: 30 5RF clopidogrel 75 mg tablet 75 mg PO DAILY Qty: 30 5RF rosuvastatin [Crestor] 20 mg tablet 20 mg PO DAILY Qty: 30 5RF tramadol 50 mg tablet 50 mg PO BID PRN (Reason: pain) Qty: 60 5RF potassium chloride [Klor-Con M20] 20 mEq tablet,ER particles/crystals 20 meq PO DAILY Qty: 90 1RF levothyroxine [Levoxyl] 100 mcg tablet See Rx Instructions PO .COMPLEX Qty: 34 2RF Rx Instructions: Take 1 tablet by mouth daily and 1.5 tablets on Monday. 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 for DC: Cardiology Discharge Order = DC NOW: Discharge Order (Routine); Ordered 10/18/25 Ordered By: Tevin Khan Other Ambulatory Orders: ECG holter monitor 14 Days (Routine) Timeframe: 1 Week Facility: [facility] - Location: Radiology Ordered By: Tevin Khan MCT/Event Monitor 21 Days (Routine) Timeframe: 3 Days Facility: [facility] - Location: Cardiology Outpatients Ordered By: Tevin Khan Referrals: Christel Gay, MEDICAL BILLING ASSISTANT-C [Primary Care Provider, Family Practice] Referral Note: We have notified your physician's clinic of the need for a follow-up appointment to be scheduled. If you have not heard from them within the next 2 business days, please call them directly. Valerio Worley M.D [Physician, Cardiology] - 2 weeks Referral Note: We have notified your physician's clinic of the need for a follow-up appointment to be scheduled. If you have not heard from them within the next 2 business days, please call them directly. Discharge Diet: Usual diet Patient Instructions: Induced Thyroid Disorders (GEN), Bradycardia (DC), Pacemaker (DC), Sick Sinus Syndrome (DC), Opioid Safety, Patient Portal & Nancy Instructions Activity Restrictions/Additional Instructions: Get appointment with our radiology department to set up the cardiac monitoring device. Discontinue all rate lowering medications, that includes amiodarone and metoprolol. I would also hold off on blood pressure medications including the valsartan for now because the low heart rate can reduce the blood pressure. Continue to take the thyroid medication because her low heart rate might have something to do with hypothyroidism that is pretty significant that we saw during her hospital stay. It also might explain her discolored skin which is called hyperkeratosis. This is a result of significant hypothyroidism. So continue to take the levothyroxine 100 mcg daily, that is a decent dose. You will likely require a pacemaker to control your heart rate when it goes too low as a backstop. The diagnosis for your condition with the alternating between fast and low heart rates in the setting of atrial fibrillation is called sick sinus syndrome, tachybradycardia syndrome Discharge Attestations Time Spent in Discharge Care*: greater than 30 min Status at Discharge: Cognitive status at discharge: cognitively intact , Behavioral status at discharge: cooperative , Quality Metrics Clinical Quality Measures [ No reported AMI, CVA or VTE this stay] Coding Level of Care Code 85108 Diagnoses Bradycardia R00.1 Atrial fibrillation I48.91 Essential (primary) hypertension I10 Mixed hyperlipidemia E78.2
[2025-10-18] MEDS: pantoprazole 40 mg SDV IVP (21:03)
[2025-10-19] VITALS (10 sets, daily range): BP systolic 99–121; BP diastolic 55–87; PULSE 57–78; RESP 15–18; TEMP 36.3–36.9; O2SAT 93–98
[2025-10-19] MEDS: multivitamin therapeutic Tablet 1 TAB PO (04:39)
[2025-10-19] MEDS: APIXABAN 2.5 MG TABLET PO ×2 (04:39→17:17)
[2025-10-19] MEDS: calcium carb-vit d 500mg-200unit 1 Tablet 1 EACH PO ×2 (04:41→17:17)
[2025-10-19 06:07] LABS: Hematocrit 32.5 % (36-47); Hemoglobin 8.70 g/dL (11.27-16.99); Mean Corpuscular HGB Conc 26.8 g/dL (30-55); Mean Corpuscular Hemoglobin 28.2 pg (27-33); Mean Corpuscular Volume 105.2 fl (85-98); Nucleated Red Blood Cells % 0.2 %; Platelet Count 381 10^3/cmm (157-399); Red Blood Count 3.09 10^6/uL (3.85-5.65); White Blood Count 8.76 10^3/uL (3.29-11.43)
[2025-10-19 07:49] LABS: Anion Gap 14.7 (5-19); Blood Urea Nitrogen 31 mg/dL (8-23); Calcium 9.3 mg/dL (8.5-10.5); Carbon Dioxide 32 mmol/L (22-29); Chloride 96 mmol/L (98-107); Glucose 101 mg/dL (65-115); Magnesium 2.1 mg/dL (1.7-2.3); Osmolality Calculated 293 mOsm/kg (285-295); Potassium 4.7 mmol/L (3.5-5.1); Sodium 138 mmol/L (136-145)
--- NOTE | 2025-10-19 08:38 | ECG_ITS ---
[facility] Test Date: 2025-10-19 Pat Name: Beryl Juárez Department: Room: 258 Gender: Female Folder And Notcher: : 1945 Requested By: Adrienne Thompson Order Number: [id number] Reading MD: APRYL HOOVER Measurements Intervals [place] Rate: 61 P: 47 FL: 178 QRS: 89 QRSD: 127 T: 182 QT: 483 QTc: 490 Interpretive Statements SINUS RHYTHM POSSIBLE RIGHT VENTRICULAR CONDUCTION DELAY [RSR (QR) IN V1/V2] ST DEVIATION AND MODERATE T-WAVE ABNORMALITY, CONSIDER ANTEROLATERAL ISCHEMIA [-0.1+ mV T-WAVE IN V3-V6] Compared to ECG 10/16/2025 16:33:23 T-wave abnormality now present Possible ischemia now present Sinus bradycardia no longer present Right bundle-branch block no longer present Prolonged QT interval no longer present Electronically Signed On 10-19-2025 23:19:49 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
[2025-10-19 09:53] LABS: NT Pro B Type Natriuretic Pept 9377 pg/mL (0-450)
[2025-10-19 10:54] LABS: Troponin T (5th) Once 19 ng/L (0-10)
--- NOTE | 2025-10-19 13:00 | P.PN_ITS ---
Subjective 2 Subjective: Beryl Juárez is a 80 year old female with pmhx of HTN, HLD, TIA, GERD, atrial fibrillation with RVR, CVA, SBO, anemia, multiple falls, chronic anticoagulation, anxiety, arthritis, slow transit constipation, head injury, non-Hodgkin lymphoma (1997), and left breast cancer (2019) presenting with complaints of arrhythmia and falls. Patient family at bedside to assist with report. For the last 3 months, patient has been working with [facility] cardiology to correct atrial fibrillation, reduced fluid overload, and normalized heart rate/blood pressure. She has had multiple medication regimen adjustments to achieve these needs. 07/07/25 patient had an ICU inpatient sta y for a flutter RVR into the 150s intermittent. Her beta-blockers were held; amiodarone drip and Cardizem drip protocols were started. IV cortisone converted her to sinus rhythm. After stabilization, metoprolol 50 mg twice daily were started. Amiodarone 200 mg daily was added at discharge. 07/14/2025 she visited her PCP outpatient and reported heart rate 40?56 on the metoprolol 50 mg twice daily, this was reduced to 25 mg twice daily. 08/28/2025 she visited her PCP outpatient and reported tachycardia 120s?130s despite metoprolol twice daily. 09/23/2025 cardiology outpatient; tachyca rdia despite increased metoprolol. Pedal edema correlated with amlodipine; amlodipine discontinued. TSH 6.75 in 08/2025; thyroid medication adjusted 10/10/2025 cardiology outpatient 2-week follow-up; increased BLE, tachycardia 120's, hypotension, abdominal distention, and dyspnea on exertion. amiodarone 200 mg daily, Eliquis 2.5 mg twice daily, Plavix, Vascepa, metoprolol tartrate 150 mg twice daily, rosuvastatin 20 mg daily, and valsartan 160 mg twice daily 10/16/2025 For the last week, patient rowe s been on Lasix twice daily for fluid overload. She has lost 14 pounds since 10/12/2025. Family states that her heart rate plunged to the 40s and she converted from atrial fibrillation to sinus rhythm. Last night, patient had complaints of weakness, dizziness, double vision, dry heaves, and palpitations. Endorses intermittent anxiety, weakness, and sleeplessness. She sustained a fall injuring her shoulder and right foot, requiring assistance to get up. This morning, she took her morning medications including a dose of her 150 mg metoprolol p.o. She reports feeling increasingly weak & short of breath and could not walk, even with use of her assisstive devices. EMS was called and she was transported to [facility] ED for further evaluation and treatment. In the ED, BP 101/65, HR 47, RR 17, T98.3, O2 100, 2L nasal cannula. WBC 7.83, Hgb 9.2, PLT 437. Potassium 3.1. Creatinine 1.7, BUN 22. Lactic 2.7 > 3.7. AST 37, ALT 19, ALP 199. Troponin 23 > 22.99. BNP 63428. CXR; Small left- sided pleural effusion, cardiomegaly. Head CT; No acute intracranial finding, cortical atrophy is present. Right foot xray; no fracture, see full results. Will admit to hospitalist service. 10/17/2025 Patient is awake, alert today . She states that she has no complaints, no shortness of breath or exertional dyspnea. But she has been staying in bed. 10/18/2025 Patient maintained heart rate about 50 despite clearing the antiarrhythmics. Currently, discussed with cardiology, discussed with patient and their family, patient is not safe for discharge with a heart rate of less than 50. Initiated transfer to outside hospital, for placement of permanent pacemaker as inpatient. 10/19/2025 patient resting in bed at prudence e of interview. Dr. Worley was consulted by our team secondary to symptomatic bradycardia; heart rate 40 with low blood pressures 99/56. Symptoms: Dizziness, weakness, palpitations. Conclusion is that patient will need transfer to outside facility for pacemaker placement. [facility] transfer center was contacted and her case was discussed with the hospitalist service as well as electrophysiology. There are no beds available at the moment but she was accepted for transfer. Family updated on patient's status by phone. Vitals/I&O/Wt Last Vital Signs Temp 97.4 F L 10/19/25 11:16 Pulse 64 10/19/25 11:16 Resp 18 10/19/25 11:16 BP 99/56 10/19/25 11:16 Pulse Ox 95 10/19/25 11:16 O2 Del Method Nasal Cannula 12/28/25 11:16 O2 Flow Rate 2 10/19/25 08:32 10/18/25 10/19/25 10/19/25 22:59 06:59 14:59 Intake Total 480 / 1440 540 / 1980 480 / 480 Output Total 200 / 500 800 / 1300 500 / 500 Balance 280 / 940 -260 / 680 -20 / -20 Weight last 48 hrs Weight 74.843 kg Weight 74.843 kg Physical Exam 2 Narrative: General: Alert oriented x3 HEENT: Normocephalic, atraumatic, EOMI, breathing on room air Cardio: Bradycardia Respiratory: Shortness of breath, dyspnea on exertion GI: Abdomen soft, nontender, nondistended, normoactive bowel sounds present all 4 quadrants, Neuro: No gross neurological deficit Behavior: Appropriate and cooperative Extremities: Bilateral lower leg edema Data 10/19/25 05:29 10/19/25 06:50 A&P Assessment and plan 1. Atrial fibrillation: 2. Bradycardia: Heart rate 45?50 In the setting of dehydration; conservative fluids in the ED On metoprolol, Lasix, valsartan at home Plan Heart rate did not seem to improve with holding heart rate lowering medications. Discussed with cardiology, will withhold rate lowering medications during the hospital stay, continue watching and monitor Pressures remained stable while withholding blood pressure medications. 11/09/2024 echocardiogram; EF 60, grade 2/4 diastolic dysfunction, moderately elevated filling pressures, moderately increased left atrial size, moderately thickened mitral valve, moderate mitral annual calcification, no mitral valve stenosis, moderate mitral valve regurgitation, moderate aortic valve calcification, mild aortic valve stenosis, trace aortic valve regurgitation, mild tricuspid valve regurgitation, no pericardial effusion, right atrial pressure around 5 mmHg, see full results 06/2025 echocardiogram; EF 55%, unremarkable for acute significant findings, moderate left atrial enlargement Supplemental O2 as needed Walk test prior to discharge to determine any need for home oxygen Case management Keep patient for at least 2 midnights to adjust medications and monitor Patient has been accepted at [facility] for transfer for pacemaker placement with hospitalist and electrophysiology teams. 3. Atrial fibrillation with RVR: On chronic anticoagulation See plan as above 4. Fall: With injury to shoulder, head, and right foot CXR; Small left-sided pleural effusion, cardiomegaly Head CT; No acute intracranial finding, cortical atrophy is present Right foot xray; no fracture, see full results Pain management PT/OT prior to discharge Fall risk precautions 5. 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 Hypothyroidism: 07/07/2025 TSH 1.76 Continue home levothyroxine TSH, T3, T4 ACTH and cortisol levels 7. TIA (transient ischemic attack): History of CVA, TIA, head injury Fall risk precautions On home Eliquis and Plavix, continue Protonix ulcer prevention s/p blood thinners and stress Monitoring 8. Anemia due to other cause, not classified: Chronic, baseline around 11G/DL Iron deficient, continue home iron supplementation 9. Mixed hyperlipidemia: Continue home regimen PDMP PDMP Reviewed: Not Reviewed Attestations 2 Medical Necessity Statement*: Patient not expected to stay in additional 2 midnights. Patient may transfer to outside facility today or tomorrow. Diagnoses Atrial fibrillation I48.91 Bradycardia R00.1 Atrial fibrillation with RVR I48.91 Fall W19.XXXA Hypokalemia E87.6 Hypothyroidism E03.9 TIA (transient ischemic attack) G45.9 Anemia due to other cause, not classified D64.89 Anemia type: other cause Other causes of anemia: other cause, not classified Mixed hyperlipidemia E78.2
--- NOTE | 2025-10-19 22:30 | PC.NURSE ---
18:55 per Verito RN; EMS on the way, pt is just waiting for her EMS ride, report already given to facility. pt in bed , no complaints all belongings packed. 2200 admin Tylenol for mild neck pain. pt repositioned and better pillor over her head . pt said that felt better. 22:28 given Transfer team update-- informed them we are still waiting for transport. awaiting. FRANK Graves just informed me that due to other Urgent calls,pt's ride will be delayed to possible midnight. Awaiting. pt call light w in reach, bed down , x 2 bedrails up.
[2025-10-19] MEDS: pantoprazole 40 mg SDV IVP (23:45)
--- NOTE | 2025-10-19 23:48 | PC.NURSE ---
11:48 still waiting for her ride to [facility]-- admin Protonix 40 mg per order. pt PIV resecured and applied COBAN, flushes well.
--- NOTE | 2025-10-20 00:56 | PC.NURSE ---
kulwant Skinner is waiting for her EMS ride to [facility] for PPM placement. Her HR 40 this morning - they held her cardiac meds due to low HR. 19:56 she had a 1 sec pause , bp 104/68, she is complaining of chronic back pain. I gave her Tylenol an hour ago still not working. she said this bed is just because Im in this bed. HR w pain 130 AFIB -I repositioned HOB high sparks, her HR fluc 110 to 130's. notified him 00:54 HR still 130's . now 145
--- NOTE | 2025-10-20 01:23 | PC.NURSE ---
is aware of change tele to NSR from AFIB w rvr. Pain related. pain is now 2-3 and pt restful. were cont to waiting for EMS for her transfer. CHarge nurse aware of her tele changes.
--- NOTE | 2025-10-20 02:11 | PC.NURSE ---
report given to the EMS paramedics- Tele hr 100-114 . pt denies increased back pain, skin wpd, no diaphoresis. pt reported her back pain is chronic and worst at night. Tele off. [facility] 2 staff assist. no sob , ox 3 L nc sat 96-97% , RR 18-20 . no apparent resp distress. Son called earlier around 30 min ago and informed him that EMS on their way.
== END 2025-10-20 02:11 | disposition short-term general hospital (02) | DRG 309 ==
LOC: ER 12:11 → MEDSURG 14:36
PROVIDERS: Admitting Provider Internal Medicine; Emergency Provider Emergency Medicine; PCP Nurse Practitioner; Visit Provider Clinical Nurse Specialist Acute Care
DX: I48.91 Unspecified atrial fibrillation (principal); C85.9A Non-Hodgkin lymphoma, unspecified, in remission; I10 Essential (primary) hypertension; E78.2 Mixed hyperlipidemia; Z79.01 Long term (current) use of anticoagulants; W19.XXXA Unspecified fall, initial encounter; E87.6 Hypokalemia; E03.9 Hypothyroidism, unspecified; Z86.73 Personal history of transient ischemic attack (TIA), and cerebral infarction without residual deficits; D64.9 Anemia, unspecified; Z79.890 Hormone replacement therapy; Z79.02 Long term (current) use of antithrombotics/antiplatelets; R00.1 Bradycardia, unspecified; E86.0 Dehydration; M81.0 Age-related osteoporosis without current pathological fracture; K21.9 Gastro-esophageal reflux disease without esophagitis
CPT/HCPCS: 36415; 70450; 71045; 73630; 80048; 80053; 81001; 82533; 83605; 83735; 83880; 84439; 84443; 84481; 84484; 85025; 86140; 87040; 93005; 93306; 94760; 97116; 97162; 97165; 99285; J0834; J2470; J7030; J9999